=== PATIENT | male | born 1945 | race Caucasian/White ===

== ENCOUNTER 2020-11-24 06:46 | Outpatient (REF) | payer MEDICARE, SELFPAY ==
[2020-11-24 12:06] LABS: Alanine Aminotransferase 18 U/L (0-40); Albumin Level 4.2 g/dL (3.5-5.0); Alkaline Phosphatase 76 U/L (39-117); Anion Gap 14 (12-20); Aspartate Amino Transferase 20 U/L (5-37); Bilirubin Total 2.3 mg/dL (0.0-1.0); Blood Urea Nitrogen 20 mg/dL (9-16); Carbon Dioxide 26 mmol/L (22-29); Chloride 103 mmol/L (96-108); Cholesterol 160 mg/dL; Estimated Glomerular Filt Rate > 60; Glucose Fasting 143 mg/dL (60-99); HDL Cholesterol 52 mg/dL; LDL Cholesterol Calculated 86 mg/dl; Sodium 139 mmol/L (135-145); Total Protein 7.3 g/dL (6.5-8.0); Triglycerides 111 mg/dL
[2020-11-24 12:34] LABS: Creatinine Urine 64.93 mg/dL; Microalbum/Creatinine Ratio Ur 21.5 ug/mg cr
== END 2020-11-24 06:47 | disposition home or self-care (01) ==
LOC: HO.HMGCLDS 06:46
PROVIDERS: PCP Nurse Practitioner Family; Visit Provider Nurse Practitioner Family
DX: E11.9 Type 2 diabetes mellitus without complications (principal)
CPT/HCPCS: 36415; 80053; 80061; 82043

== ENCOUNTER 2021-03-08 07:27 | Outpatient (AMB) | payer MEDICARE, SELFPAY ==
--- NOTE | 2021-03-08 07:31 | A.OFFVIS_ITS ---
Intake Vital Signs 03/08/21 07:33 Height 5 ft 6 in Weight 172 lb BMI 27.7 BP 128/80 Blood Pressure Location Lt brachial Position Sitting Pulse 73 Pulse Source Pulse Oximeter Pulse Oximetry (%) 96 Oxygen Delivery Method Room Air Intake Visit Reasons: Patient is here today for follow up on DM Allergies Iodinated Contrast Media [IV DYE, IODINE CONTAINING CONTRAST ] Allergy (Mild, Verified 03/08/21 07:40) HIVES HPI Patient is here today for follow up on DM HPI Details Pt is a diabetic, on an CRAIG and a statin. Last A1c was 6.3, microalbumin up to date. Denies polyuria, polydipsia, and neuropathy. Pt denies any signs and symptoms of hypoglycemia and does know how to correct it. Pt c/o pain and numbness in righthand which has been diagnosed as both arthritis and carpal tunnel. Will order EMG and nerve conduction testing. Pt reports that he has an eye exam later today. FORMERLY [facility], [facility] Medical History (Updated 03/08/21 @ 07:45 by JUHI Zepeda) Actinic keratosis Arthritis Diabetes Diverticulitis Dyslipidemia Enlarged prostate Riley disease Glaucoma HTN (hypertension) Internal hemorrhoids Tubular adenoma Surgical History History of cataract surgery History of colonoscopy History of cystoscopy History of removal of neck cyst History of umbilical hernia repair Family History Father Lung cancer Smoker Mother History of CVA (cerebrovascular accident) Dementia Stroke Son No problems noted. Daughter No problems noted. Social History Alcohol intake: current Alcohol intake frequency: a few times a week Patient Tobacco Use Status: Former Tobacco user Review of Systems Const Reports as per HPI Physical Exam Vital Signs: Last Vital Signs Pulse 73 03/08/21 07:33 BP 128/80 03/08/21 07:33 Pulse Ox 96 03/08/21 07:33 Oxygen Delivery Method Room Air 03/08/21 07:33 Body Mass Index 27.7 Const General: cooperative Orientation/consciousness: patient oriented x3 Resp Effort & Inspection: normal respiratory effort Auscultation: clear to auscultation bilaterally Cardio Rate: regular rate Rhythm: regular rhythm Heart sounds: S1 normal heart sound present and S2 normal heart sound present Neuro General: patient oriented x3 Extrem Other: bilat feet: + sensation with use of monofilament , feet intact without open lesions/ulcerations Psych Appearance: grossly normal Mental Status: mental status grossly normal Speech and movement: Normal speech and movement present Affect: normal affect Attitude: cooperative Thought process: Normal thought process present Thought content: Normal thought content present Insight: Good insight present (Psych) Judgement: Good judgement present (Psych) Assessment & Plan Assessment & Plan (1) Diabetes: Code(s): E11.9 - Type 2 diabetes mellitus without complications Plan - Yuni Reyes: The patient agreed to the use of a medical information officer for this encounter. Scribed for JUHI Kimbrough by Yuni Reyes medical information officer, on 03/08/2021 at 7:45 AM. Orders: Orders: Comprehensive [place]. Panel Fast Today Lipid Panel Today TSH reflex Free T4 Today (2) Numbness and tingling in right hand: Code(s): R20.0 - Anesthesia of skin; R20.2 - Paresthesia of skin Orders: Orders: NE electromyogram (EMG) Today NE nerve conduction velocity Today Coding Level of Care Code Est Pt Level 3 (98465) Diagnoses Diabetes E11.9 Numbness and tingling in right hand R20.0; R20.2
[2021-03-08 07:33] VITALS: BP 128/80; PULSE 73; O2SAT 96; BMI 27.7
== END 2021-03-08 08:49 ==
LOC: HO.HMGC 07:27
PROVIDERS: PCP Nurse Practitioner Family; Visit Provider Nurse Practitioner Family
DX: Z13.9 Encounter for screening, unspecified (principal)
CPT/HCPCS: 83036; 99213

== ENCOUNTER 2021-05-05 07:45 | Outpatient (REF) | payer MEDICARE, SELFPAY ==
--- NOTE | 2021-05-05 07:48 | EMG_ITS ---
Right median and ulnar motor and sensory studies were performed. Right radial sensory study was performed and paraspinal muscles were tested. IMPRESSION: 1. Moderately severe right median neuropathy across carpal tunnel. 2. Mild right ulnar neuropathy across elbow. MD ORLANDO Chandra/JURGEN / [id number]
== END 2021-05-05 07:46 | disposition home or self-care (01) ==
LOC: HO.NEURO 07:45
PROVIDERS: PCP Nurse Practitioner Family; Visit Provider Nurse Practitioner Family
DX: R20.0 Anesthesia of skin (principal); R20.2 Paresthesia of skin
CPT/HCPCS: 95886; 95909

== ENCOUNTER → 2021-06-20 08:51 | Outpatient (BNVA) | payer MEDICARE, SELFPAY | PROVIDERS: Visit Provider Physician Assistant | DX: G56.01 Carpal tunnel syndrome, right upper limb (principal); G56.21 Lesion of ulnar nerve, right upper limb | CPT/HCPCS: 99202 ==

== ENCOUNTER → 2021-07-25 14:14 | Outpatient (BNVA) | payer MEDICARE, SELFPAY | PROVIDERS: PCP Nurse Practitioner Family; Visit Provider Orthopaedic Surgery | DX: S61.211A Laceration without foreign body of left index finger without damage to nail, initial encounter (principal); G56.01 Carpal tunnel syndrome, right upper limb; G56.21 Lesion of ulnar nerve, right upper limb | CPT/HCPCS: 99202 ==

== ENCOUNTER 2021-08-04 09:24 | Day surgery (SDC) | payer MEDICARE, SELFPAY ==
[2021-08-04 09:48] VITALS: BP 171/89; PULSE 76; RESP 16; TEMP 36.4; O2SAT 98; BMI 27.4
--- NOTE | 2021-08-04 12:48 | MHC.SHP ---
Pre-Procedural Eval Section A Date of Service: 08/04/21 The patient is an INPATIENT: No Changes since office visit: No Cold of Flu in the past 2 weeks, No New Medical Problems, No Changes in Medication and No Patient answered all questions The History & Physical has been completed within 30 days and I have reviewed it.: Yes Section B Chief Complaint: carpal tunnel syndrome Allergies: Allergies Allergy/AdvReac Type Severity Reaction Status Date / Time Iodinated Contrast Media Allergy Mild HIVES Verified 08/04/21 09:45 [IV DYE, IODINE CONTAINING CONTRAST ] Plan I have reviewed the history and physical and performed a pertinent physical examination on my patient. No changes have occurred unless specified.
--- NOTE | 2021-08-04 12:48 | W.PM.OPN ---
Operative Note Operative Note Date of Service: 08/04/21 Narrative: Preop diagnosis: 1. Right Carpal tunnel syndrome Postop diagnosis: same Procedure: 1. Right Carpal tunnel release Surgeon: Irais Bowman MD Anesthesia: local block using 1% lidocaine with epinephrine Findings: Thickened transverse carpal ligament. EBL: Less than 5 mL Specimens: None Complications: None Disposition: Brought to recovery room in stable condition Plan: Follow-up for 7-10 days for wound check and suture removal Indications: The patient is 76 years old, with right carpal tunnel syndrome that has been unresponsive to nonoperative management. The risks and benefits of operative treatment including but not limited to risk of damage to blood vessels, nerves, tendons, infection, persistent pain, persistent symptoms, or possible need for additional surgery were discussed with the patient and the patient wishes to proceed with surgery. Procedure: Once consent was obtained a local block was performed using a combination of 1% lidocaine with epinephrine. The patient was then brought back to the operating suite and placed on the operative table in supine position. A tourniquet was applied to the proximal aspect of the right upper extremity and the limb was prepped and draped in a standard surgical fashion. Once assured that we had a good block, a 1.5 cm longitudinal incision was made centered over the carpal tunnel. The incision was made through the skin to the subcutaneous tissues using a #15 blade. Dissection was made down to the level of the transverse carpal ligament with care being taken to protect the palmar cutaneous nerve. Once the transverse carpal ligament was clearly visualized, a longitudinal incision was made in the transverse carpal ligament 1st using a #15 blade, then using tenotomy scissors under direct visualization. Care was taken to look for and protect the motor branch of the median nerve when seen in this area. Once satisfied with our carpal tunnel release the wound was copiously irrigated with normal saline and hemostasis was obtained with a brief period of local pressure. The skin edges were reapproximated with some 5.0 nylon suture material and a sterile dressing was applied. The patient appears to have tolerated the procedure well and with no complications. All digits were well vascularized at the conclusion of the case.
[2021-08-04 13:21] VITALS: BP 170/80; PULSE 77; RESP 18; TEMP 36.8; O2SAT 98
== END 2021-08-04 13:28 | disposition home or self-care (01) ==
PROVIDERS: PCP Nurse Practitioner Family; Visit Provider Orthopaedic Surgery
PROC: (CPT 64721; principal; 2021-08-04 10:10)
DX: G56.01 Carpal tunnel syndrome, right upper limb (principal); G56.21 Lesion of ulnar nerve, right upper limb; M19.041 Primary osteoarthritis, right hand; I10 Essential (primary) hypertension; E80.4 Gilbert syndrome; E11.9 Type 2 diabetes mellitus without complications; Z79.84 Long term (current) use of oral hypoglycemic drugs; Z91.041 Radiographic dye allergy status; Z87.891 Personal history of nicotine dependence
CPT/HCPCS: 64721

== ENCOUNTER → 2021-08-17 13:20 | Outpatient (BNVA) | payer MEDICARE, SELFPAY | PROVIDERS: PCP Nurse Practitioner Family; Visit Provider Orthopaedic Surgery | DX: G56.21 Lesion of ulnar nerve, right upper limb (principal); G56.03 Carpal tunnel syndrome, bilateral upper limbs; S61.211D Laceration without foreign body of left index finger without damage to nail, subsequent encounter | CPT/HCPCS: 99212 ==

== ENCOUNTER 2021-09-06 13:43 | Outpatient (REF) | payer MEDICARE, SELFPAY | END 2021-09-06 13:44 | disposition home or self-care (01) | LOC: HO.HMGCLDS 13:43 | PROVIDERS: PCP Nurse Practitioner Family; Visit Provider Internal Medicine | DX: Z20.822 Contact with and (suspected) exposure to COVID-19 (principal) | CPT/HCPCS: C9803; U0003; U0005 ==

== ENCOUNTER 2021-09-12 08:48 | Day surgery (SDC) | payer MEDICARE, SELFPAY ==
[2021-09-12 09:05] VITALS: BMI 27.4
[2021-09-12 09:11] VITALS: BP 159/60; PULSE 77; RESP 16; TEMP 36.3; O2SAT 99
[2021-09-12 10:59] VITALS: BP 157/75; PULSE 71; RESP 16; TEMP 36.7; O2SAT 96
--- NOTE | 2021-09-12 11:05 | MHC.SHP ---
Pre-Procedural Eval Section A Date of Service: 09/12/21 The patient is an INPATIENT: No Changes since office visit: No Cold of Flu in the past 2 weeks, No New Medical Problems, No Changes in Medication and No Patient answered all questions The History & Physical has been completed within 30 days and I have reviewed it.: Yes Section B Chief Complaint: carpal tunnel release Allergies: Allergies Allergy/AdvReac Type Severity Reaction Status Date / Time Iodinated Contrast Media Allergy Mild HIVES Verified 08/04/21 09:45 [IV DYE, IODINE CONTAINING CONTRAST ] Plan I have reviewed the history and physical and performed a pertinent physical examination on my patient. No changes have occurred unless specified.
--- NOTE | 2021-09-12 11:05 | W.PM.OPN ---
Operative Note Operative Note Date of Service: 09/12/21 Narrative: Preop diagnosis: 1. left Carpal tunnel syndrome Postop diagnosis: same Procedure: 1. left Carpal tunnel release Surgeon: Irais Bowman MD Anesthesia: local block using 1% lidocaine with epinephrine Findings: Thickened transverse carpal ligament in the palm. EBL: Less than 5 mL Specimens: None Complications: None Disposition: Brought to recovery room in stable condition Plan: Follow-up for 7-10 days for wound check and suture removal Indications: The patient is 76 years old, with left carpal tunnel syndrome that has been unresponsive to nonoperative management. The risks and benefits of operative treatment including but not limited to risk of damage to blood vessels, nerves, tendons, infection, persistent pain, persistent symptoms, or possible need for additional surgery were discussed with the patient and the patient wishes to proceed with surgery. Procedure: Once consent was obtained a local block was performed using a combination of 1% lidocaine with epinephrine. The patient was then brought back to the operating suite and placed on the operative table in supine position. A tourniquet was applied to the proximal aspect of the left upper extremity and the limb was prepped and draped in a standard surgical fashion. Once assured that we had a good block, a 1.5 cm longitudinal incision was made centered over the carpal tunnel. The incision was made through the skin to the subcutaneous tissues using a #15 blade. Dissection was made down to the level of the transverse carpal ligament with care being taken to protect the palmar cutaneous nerve. Once the transverse carpal ligament was clearly visualized, a longitudinal incision was made in the transverse carpal ligament 1st using a #15 blade, then using tenotomy scissors under direct visualization. Care was taken to look for and protect the motor branch of the median nerve when seen in this area. Once satisfied with our carpal tunnel release the wound was copiously irrigated with normal saline and hemostasis was obtained with a brief period of local pressure. The skin edges were reapproximated with some 5.0 nylon suture material and a sterile dressing was applied. The patient appears to have tolerated the procedure well and with no complications. All digits were well vascularized at the conclusion of the case.
== END 2021-09-12 11:15 | disposition home or self-care (01) ==
PROVIDERS: PCP Nurse Practitioner Family; Visit Provider Orthopaedic Surgery
PROC: (CPT 64721; principal; 2021-09-12 10:10)
DX: G56.02 Carpal tunnel syndrome, left upper limb (principal); I10 Essential (primary) hypertension; E78.5 Hyperlipidemia, unspecified; E80.4 Gilbert syndrome; E11.9 Type 2 diabetes mellitus without complications; Z91.041 Radiographic dye allergy status; Z87.891 Personal history of nicotine dependence
CPT/HCPCS: 64721

== ENCOUNTER → 2021-09-27 12:50 | Outpatient (BNVA) | payer MEDICARE, SELFPAY | PROVIDERS: PCP Nurse Practitioner Family; Visit Provider Physician Assistant | DX: G56.02 Carpal tunnel syndrome, left upper limb (principal) | CPT/HCPCS: 99212 ==

== ENCOUNTER 2021-10-03 07:04 | Outpatient (REF) | payer MEDICARE, SELFPAY ==
[2021-10-03 11:24] LABS: Appearance Urine CLEAR; Color Urine YELLOW; Glucose Urine UA NEG (NEG); Leukocyte Esterase Urine NEG (NEG); Nitrite Urine NEG (NEG); Urine Blood NEG (NEG); Urine Ketones NEG (NEG); Urine Protein NEG (NEG-TRACE)
[2021-10-03 11:37] LABS: Estimated Average Glucose 140 mg/dL; Hemoglobin A1c % 6.5 %
[2021-10-03 11:48] LABS: Alanine Aminotransferase 21 U/L (0-40); Albumin Level 4.1 g/dL (3.5-5.0); Alkaline Phosphatase 78 U/L (39-117); Anion Gap 9 (12-20); Aspartate Amino Transferase 17 U/L (5-37); Blood Urea Nitrogen 16 mg/dL (9-16); Calcium 9.6 mg/dL (8.4-10.2); Carbon Dioxide 27 mmol/L (22-29); Chloride 105 mmol/L (96-108); Cholesterol 169 mg/dL; Estimated Glomerular Filt Rate > 60; Glucose Fasting 155 mg/dL (60-99); HDL Cholesterol 52 mg/dL; LDL Cholesterol Calculated 94 mg/dl; Potassium 4.3 mmol/L (3.3-5.1); Sodium 137 mmol/L (135-145); Total Protein 7.3 g/dL (6.5-8.0); Triglycerides 119 mg/dL
[2021-10-03 11:57] LABS: Prostate Specific Antigen Scr 3.59 ng/mL (<0.05-4.0); TSH reflex Free T4 3.12 uIU/mL (0.32-4.0)
== END 2021-10-03 07:05 | disposition home or self-care (01) ==
LOC: HO.HMGCLDS 07:04
PROVIDERS: PCP Nurse Practitioner Family; Visit Provider Nurse Practitioner Family
DX: Z12.5 Encounter for screening for malignant neoplasm of prostate (principal); E11.9 Type 2 diabetes mellitus without complications
CPT/HCPCS: 36415; 80053; 80061; 81003; 83036; 84153; 84443

== ENCOUNTER 2022-02-07 07:05 | Outpatient (REF) | payer MEDICARE, SELFPAY ==
[2022-02-07 12:02] LABS: Alanine Aminotransferase 17 U/L (0-40); Albumin Level 4.2 g/dL (3.5-5.0); Alkaline Phosphatase 74 U/L (39-117); Anion Gap 12 (12-20); Aspartate Amino Transferase 19 U/L (5-37); Bilirubin Total 2.7 mg/dL (0.0-1.0); Blood Urea Nitrogen 26 mg/dL (9-16); Calcium 9.8 mg/dL (8.4-10.2); Carbon Dioxide 27 mmol/L (22-29); Chloride 105 mmol/L (96-108); Cholesterol 152 mg/dL; Estimated Glomerular Filt Rate > 60; Glucose Fasting 175 mg/dL (60-99); HDL Cholesterol 50 mg/dL; LDL Cholesterol Calculated 80 mg/dl; Potassium 4.9 mmol/L (3.3-5.1); Sodium 139 mmol/L (135-145); Total Protein 7.6 g/dL (6.5-8.0); Triglycerides 110 mg/dL
[2022-02-07 12:04] LABS: Creatinine Urine 72.09 mg/dL
[2022-02-07 12:06] LABS: Estimated Average Glucose 146 mg/dL; Hemoglobin A1c % 6.7 %
== END 2022-02-07 07:06 | disposition home or self-care (01) ==
LOC: HO.HMGCLDS 07:05
PROVIDERS: Visit Provider Nurse Practitioner Family
DX: E11.9 Type 2 diabetes mellitus without complications (principal)
CPT/HCPCS: 36415; 80053; 80061; 82043; 83036

== ENCOUNTER 2022-04-17 15:52 | Outpatient (REF) | payer MEDICARE, SELFPAY ==
--- NOTE | ~2022-04-17 | XR_ITS ---
EXAMINATION: XR HIP, LEFT WITH PELVIS CLINICAL INFORMATION: Left hip pain. COMPARISON: 07/20/2011 and 05/07/2015. TECHNIQUE: AP film of the pelvis and 2 views of the left hip. FINDINGS: AP film of the pelvis does not demonstrate any evidence of acute fracture or diastasis. Sacroiliac joints appear unremarkable. There is some spurring seen about both greater trochanters. There is severe degenerative disc disease present L4 through S1 on the right with loss of disc spaces and marginal spurring and facet arthropathy. There are prominent vascular calcifications seen. There is mild spurring about the right hip joint. 2 views of the left hip do not demonstrate any evidence of acute fracture or dislocation. The hip joint space is maintained. There is some mild marginal spurring present. There is calcification of the greater trochanter consistent with calcific tendinitis.. XR/XR hip LT w PEL1V IMPRESSION: No evidence of acute fracture or diastases of the pelvis. No evidence of acute fracture or dislocation of the left hip. Left hip calcific tendinitis greater trochanter. Significant degenerative disc disease lower lumbar spine.
== END 2022-04-17 15:53 | disposition home or self-care (01) ==
LOC: HO.HMGCX 15:52
PROVIDERS: PCP Nurse Practitioner Family; Visit Provider Internal Medicine
DX: S76.012A Strain of muscle, fascia and tendon of left hip, initial encounter (principal)
CPT/HCPCS: 73502

== ENCOUNTER 2022-07-01 07:54 | Outpatient (REF) | payer MEDICARE, SELFPAY ==
[2022-07-01 11:51] LABS: MANUAL DIFF FLAG NO
[2022-07-01 11:54] LABS: Basophils Percent Auto 0.5 % (0-2); Eosinophils Absolute Auto 0.1 X10*3/uL (0.0-0.4); Eosinophils Percent Auto 2.4 % (0-4); Hematocrit 39.9 % (42.0-52.0); Hemoglobin 13.7 g/dl (14.0-18.0); Imm Gran Abs Auto 0.03 X10*3/uL (0.00-0.03); Imm Gran Pct Auto 0.5 % (0.0-0.4); Lymphocytes Absolute Auto 1.4 X10*3/uL (1.2-4.9); Lymphocytes Percent Auto 24.3 % (20-40); Mean Corpuscular HGB Conc 34.3 g/dl (31.0-36.0); Mean Corpuscular Hemoglobin 31.7 pg (27.0-33.0); Mean Corpuscular Volume 92.4 fL (80.0-98.0); Mean Platelet Volume 9.5 fL (9.4-12.4); Monocytes Absolute Auto 0.5 X10*3/uL (0.1-1.2); Monocytes Percent Auto 8.9 % (2-11); Neutrophils Absolute Auto 3.7 x10*3/uL (2.0-8.3); Neutrophils Percent Auto 63.4 % (45-73); Platelet Count 231 X10*3/uL (160-400); Red Blood Count 4.32 X10*6/uL (4.60-5.80); Red Cell Distribution Width 12.6 % (11.0-16.0); White Blood Count 5.9 X10*3/uL (4.8-10.8)
[2022-07-01 11:55] LABS: Appearance Urine Clear; Color Urine Yellow; Glucose Urine UA Negative (Negative); Leukocyte Esterase Urine Negative (Negative); Nitrite Urine Negative (Negative); PH 5.5 (5.0-9.0); Specific Gravity - Urine 1.015 (1.005-1.025); Urine Blood Negative (Negative); Urine Ketones Negative (Negative); Urine Protein Negative (Neg-Trace)
[2022-07-01 12:01] LABS: Estimated Average Glucose 137 mg/dL; Hemoglobin A1c % 6.4 %
[2022-07-01 12:08] LABS: Alanine Aminotransferase 21 U/L (0-40); Albumin Level 4.3 g/dL (3.5-5.0); Alkaline Phosphatase 104 U/L (39-117); Anion Gap 17 (12-20); Aspartate Amino Transferase 22 U/L (5-37); Bilirubin Total 2.7 mg/dL (0.0-1.0); Blood Urea Nitrogen 25 mg/dL (9-16); Calcium 9.6 mg/dL (8.4-10.2); Carbon Dioxide 23 mmol/L (22-29); Chloride 104 mmol/L (96-108); Cholesterol 150 mg/dL; Estimated Glomerular Filt Rate 59; Glucose Fasting 157 mg/dL (60-99); HDL Cholesterol 46 mg/dL; LDL Cholesterol Calculated 87 mg/dl; Potassium 4.3 mmol/L (3.3-5.1); Sodium 140 mmol/L (135-145); Total Protein 7.5 g/dL (6.5-8.0); Triglycerides 85 mg/dL
[2022-07-01 12:32] LABS: Prostate Specific Antigen Scr 2.09 ng/mL (<0.05-4.0); TSH reflex Free T4 2.44 uIU/mL (0.32-4.0)
== END 2022-07-01 07:55 | disposition home or self-care (01) ==
LOC: HO.HMGCLDS 07:54
PROVIDERS: PCP Nurse Practitioner Family; Visit Provider Nurse Practitioner Family
DX: E11.9 Type 2 diabetes mellitus without complications (principal); Z12.5 Encounter for screening for malignant neoplasm of prostate
CPT/HCPCS: 36415; 80053; 80061; 81003; 83036; 84153; 84443; 85025

== ENCOUNTER 2022-12-06 12:17 | Outpatient (REF) | payer MEDICARE, SELFPAY ==
[2022-12-06 13:41] LABS: MANUAL DIFF FLAG NO
[2022-12-06 13:49] LABS: Basophils Percent Auto 0.4 % (0-2); Eosinophils Absolute Auto 0.2 X10*3/uL (0.0-0.4); Eosinophils Percent Auto 2.1 % (0-4); Hematocrit 40.4 % (42.0-52.0); Hemoglobin 13.5 g/dl (14.0-18.0); Imm Gran Abs Auto 0.05 X10*3/uL (0.00-0.03); Imm Gran Pct Auto 0.6 % (0.0-0.4); Lymphocytes Absolute Auto 1.7 X10*3/uL (1.2-4.9); Lymphocytes Percent Auto 20.3 % (20-40); Mean Corpuscular HGB Conc 33.4 g/dl (31.0-36.0); Mean Corpuscular Hemoglobin 30.9 pg (27.0-33.0); Mean Corpuscular Volume 92.4 fL (80.0-98.0); Mean Platelet Volume 9.4 fL (9.4-12.4); Monocytes Absolute Auto 0.7 X10*3/uL (0.1-1.2); Monocytes Percent Auto 8.5 % (2-11); Neutrophils Absolute Auto 5.6 x10*3/uL (2.0-8.3); Neutrophils Percent Auto 68.1 % (45-73); Platelet Count 243 X10*3/uL (160-400); Red Blood Count 4.37 X10*6/uL (4.60-5.80); Red Cell Distribution Width 12.7 % (11.0-16.0); White Blood Count 8.2 X10*3/uL (4.8-10.8)
[2022-12-06 14:17] LABS: Alanine Aminotransferase 16 U/L (0-40); Albumin Level 4.2 g/dL (3.5-5.0); Alkaline Phosphatase 99 U/L (39-117); Anion Gap 11 (12-20); Aspartate Amino Transferase 19 U/L (5-37); Bilirubin Total 1.9 mg/dL (0.0-1.0); Blood Urea Nitrogen 31 mg/dL (9-16); Calcium 9.4 mg/dL (8.4-10.2); Carbon Dioxide 27 mmol/L (22-29); Chloride 105 mmol/L (96-108); Estimated Glomerular Filt Rate 58; Glucose Random 140 mg/dL (60-115); Potassium 4.4 mmol/L (3.3-5.1); Sodium 139 mmol/L (135-145); Total Protein 7.4 g/dL (6.5-8.0)
== END 2022-12-06 12:18 | disposition home or self-care (01) ==
LOC: HO.HMGCLDS 12:17
PROVIDERS: PCP Nurse Practitioner Family; Visit Provider Nurse Practitioner Family
DX: Z01.818 Encounter for other preprocedural examination (principal)
CPT/HCPCS: 36415; 80053; 85025

== ENCOUNTER 2022-12-25 08:21 | Day surgery (SDC) | payer MEDICARE, SELFPAY ==
[2022-12-25 07:07] VITALS: BMI 27.6
[2022-12-25 08:56] LABS: Glucose, Whole Blood 145 mg/dL (60-115)
[2022-12-25 09:04] VITALS: BP 164/80; PULSE 72; RESP 19; TEMP 36.6; O2SAT 99
[2022-12-25] MEDS: Lactated Ringers 1,000 ML 50 ML IVCONT (09:12)
--- NOTE | 2022-12-25 09:13 | P.CONAN_ITS ---
HPI - Anesthesia Eval Consult details Narrative: 77 yr old with htn and CKD for colon screen [facility] Active Problems Active Problems: All Active Problems (Updated 12/06/22 @ 11:49 by JUHI Zepeda) Pre-op evaluation (Acute) Screening for colon cancer (Acute) Sprain of left hip (Acute) HTN (hypertension) (Acute) Carpal tunnel syndrome of left wrist (Acute) Laceration of left index finger (Acute) Cubital tunnel syndrome on right (Acute) Carpal tunnel syndrome of right wrist (Acute) Actinic keratosis (Acute) Cubital tunnel syndrome (Acute) Carpal tunnel syndrome (Acute) Numbness and tingling in right hand (Acute) Screening PSA (prostate specific antigen) (Acute) Diabetes (Acute) Past Medical History Medical History (Updated 12/06/22 @ 11:49 by JUHI Zepeda) Actinic keratosis Arthritis CKD (chronic kidney disease) stage 3, GFR 30-59 ml/min Diabetes Diverticulitis Dyslipidemia Enlarged prostate [place]en disease Glaucoma HTN (hypertension) Internal hemorrhoids Tinea unguium Tubular adenoma Family History Family History Father Lung cancer Smoker Mother History of CVA (cerebrovascular accident) Dementia Stroke Son No problems noted. Daughter No problems noted. Family history of problems with anesthesia: No Surgical History Surgical History History of cataract surgery History of colonoscopy History of cystoscopy History of removal of neck cyst History of umbilical hernia repair History of Problems with Anesthesia: No Social History Social History Housing: House Alcohol intake: current Alcohol intake frequency: holidays/special occasions only Patient Tobacco Use Status: Former Tobacco user Quit Date: 30 yrs ago e-Cigarette/Vaping Use: Never Used Second Hand Smoke Exposure: No Are you DNR?: No Advance Directives: No Advance Directives Information Provided: Yes Current occupational status: employed 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 Cognitive needs: No Hearing needs: No Vision needs: No Meds Allergies Allergy/AdvReac Type Severity Reaction Status Date / Time Iodinated Contrast Media Allergy Mild HIVES Verified 12/06/22 11:37 [IV DYE, IODINE CONTAINING CONTRAST ] Active Medications: Current Medications Lactated Ringer's (Lr) 1,000 mls @ 50 mls/hr IVCONT .Q20H BARBIE Last Admin: 12/25/22 09:12 Dose: 50 mls/hr Sodium Biphosphate/Sodium Phosphate (Sodium Phosphate,Burleigh-Dibasic 133 Ml Enema) 133 ml AR ONCE PRN PRN Reason: Poor Colonoscopy Prep Results Home Medications Medication Instructions Recorded Confirmed Last Taken Type aspirin 81 mg tablet,delayed 81 mg PO DAILY 08/24/20 06/21/22 12/18/22 History release brimonidine 0.15 % eye drops drp ophthalmic (eye) 08/24/20 06/21/22 08/04/21 07:00 History latanoprost 0.005 % eye drops 1 drp ophthalmic (eye) BEDTIME 08/24/20 06/21/22 Unknown History timolol maleate 0.5 % eye drops 1 drp ophthalmic (eye) BID 08/24/20 06/21/22 08/04/21 07:00 History Exam Exam Date and Time: December 25, 2022 0913 Height,Weight and Vital Signs: Height 5 ft 5 in Weight 75.296 kg Last Vital Signs Temp 98 F 12/25/22 09:04 Pulse 72 12/25/22 09:04 Resp 19 12/25/22 09:04 BP 164/80 H 12/25/22 09:04 Pulse Ox 99 12/25/22 09:04 O2 Del Method Room Air 12/25/22 09:04 Pertinent Lab Results Pertinent Lab Results: Laboratory Tests 12/25/22 08:53 POC Glucose 145 H Airway Mallampati Class: II TM Dist: >3cm Neck ROM: Full Heart: rrr Lungs: cta Assessment and Plan Assessment Anesthesia Assessment: Anesthesia Plan Discussed and Chart Reviewed Final Anesthetic Review Family History of Problems with Anesthesia: No History of Problems with Anesthesia: No NPO: Yes ASA Class: III Final Preanesthetic Review: No Changes in Pt Med Stat, Meds/Allgs Chart Reviewed, Consent Obtained/Reviewed and Anes Risks/Benef Reviewed Patient Risk: Low Procedure Risk: Low Anesthetic Plan Anesthetic Plan: MAC: Disposition: Standard PACU
[2022-12-25 10:45] VITALS: BP 100/49; PULSE 68; RESP 17; TEMP 36.6; O2SAT 96
--- NOTE | 2022-12-25 10:47 | PM.OP ---
Brief Operative Note Date of Service: 12/25/22 Pre-op diagnosis: Screening Post-op diagnosis: other (Polyps) Procedure: Colonoscopy to the cecum with hot snare polypectomy x 2 Surgeon: Romulo Barillas Anesthesia: MAC Was an Education Reviewer used for this Procedure?: No Estimated blood loss (mL): 0 Pathology: other (A. Proximal ascending colon B. Polyp in area of Hepatic Flexure) Condition: stable Disposition: PACU
[2022-12-25 11:00] VITALS: BP 138/64; PULSE 62; RESP 16; TEMP 36.8; O2SAT 98
--- NOTE | 2022-12-25 11:44 | OP_ITS ---
DATE OF SERVICE: 12/25/2022 SURGEON: Romulo Barillas MD PREOPERATIVE DIAGNOSIS: POSTOPERATIVE DIAGNOSIS: PROCEDURE PERFORMED: Colonoscopy to the cecum with hot snare polypectomy x 2. ESTIMATED BLOOD LOSS: COMPLICATIONS: ANESTHESIA: Monitored anesthesia care. ASSISTANTS: SPECIMENS: PREOPERATIVE DIAGNOSES: Colorectal cancer screening and personal history of tubular adenomas of the colon. POSTOPERATIVE DIAGNOSES: Colorectal cancer screening and personal history of tubular adenomas of the colon, colon polyps, diverticulosis and internal hemorrhoids. INDICATION: The patient presents for evaluation of colorectal cancer screening, and personal history of tubular adenomas of the colon. Full consent has been obtained from him for the procedure, including risks of bleeding and perforation. DESCRIPTION OF PROCEDURE: The patient was placed in the left lateral decubitus position. The digital rectal exam revealed no abnormalities. The Olympus video pediatric colonoscope was entered into the rectum and advanced to the cecum with assistance of abdominal wall pressure. Once in the cecum, I did identify cecal pouch with appendiceal orifice and normal-appearing ileocecal valve. The entire cecum appeared normal. There was a diverticulum in the cecum. Scope was then slowly withdrawn assessing all mucosal surfaces carefully. Preparation was excellent. In the very proximal ascending colon, opposite to the ileocecal valve, was an approximately 8 mm polyp which was removed by hot snare polypectomy and recovered by suction. The polypectomy site appeared clean, without any sign of residual polyp nor bleeding. In the region of the hepatic flexure, there was an approximately 6 mm polyp which was removed by hot snare polypectomy and recovered by suction. The polypectomy site appeared clean, without any sign of residual polyp nor bleeding. I did not visualize any other polyps, colitis, nor angiodysplasia. There was an occasional diverticulum noted in the ascending colon and mild diverticulosis in the sigmoid colon. In the rectum, the scope was retroflexed visualizing internal hemorrhoids, but no other pathology. The rectal mucosa appeared normal. Scope was straightened and withdrawn from the patient. He tolerated the procedure well and was returned to the recovery area in stable condition. IMPRESSION: 1. Colon polyps. 2. Diverticulosis. 3. Internal hemorrhoids. PLAN: The results of the pathology will be checked. Given his age and these relatively minimal findings, I do not think he will need any further screening colonoscopies in the future as he would be in his 80s when the next colonoscopy would theoretically be due. As such, he will see me on a p.r.n. basis. He was advised not to use any aspirin or NSAIDs for 1 week. MD JANE Marks/JURGEN / [id number] MTDD
== END 2022-12-25 11:41 | disposition home or self-care (01) ==
PROVIDERS: PCP Nurse Practitioner Family; Visit Provider Internal Medicine
PROC: 0DJD8ZZ Inspection of Lower Intestinal Tract, Via Natural or Artificial Opening Endoscopic (ICD-10-PCS; CPT 45378; principal; 2022-12-25 09:40)
DX: Z12.11 Encounter for screening for malignant neoplasm of colon (principal); Z86.010 Personal history of colon polyps; D12.2 Benign neoplasm of ascending colon; D12.3 Benign neoplasm of transverse colon; K57.30 Diverticulosis of large intestine without perforation or abscess without bleeding; K64.8 Other hemorrhoids; I10 Essential (primary) hypertension; K76.0 Fatty (change of) liver, not elsewhere classified; E80.4 Gilbert syndrome; E78.5 Hyperlipidemia, unspecified; G47.33 Obstructive sleep apnea (adult) (pediatric); E11.9 Type 2 diabetes mellitus without complications; Z79.84 Long term (current) use of oral hypoglycemic drugs; Z79.899 Other long term (current) drug therapy; Z79.1 Long term (current) use of non-steroidal anti-inflammatories (NSAID); Z91.041 Radiographic dye allergy status; Z87.891 Personal history of nicotine dependence
CPT/HCPCS: 45385; 82947; 88305

== ENCOUNTER 2022-12-27 15:52 | Emergency (ER) | payer OTHER, MEDICARE, SELFPAY ==
--- NOTE | ~2022-12-27 | XR_ITS ---
EXAMINATION: XR FINGER, LEFT CLINICAL INFORMATION: Index finger injury. COMPARISON: Radiograph of the left hand 03/29/2017. TECHNIQUE: Three views of the left index finger. FINDINGS: Redemonstration of small radiopaque bodies along the soft tissues of the fifth digit, stable compared to 03/29/2017. New scattered radiopaque densities in the soft tissues of the first through fourth digits, could represent foreign bodies. Soft tissue thickening with a laceration in the distal aspect of the second digit. No acute fractures or malalignment. Severe joint space narrowing and subcortical sclerosis of the first carpometacarpal joint and triscaphe space. Moderate joint space narrowing with osteophytes at multiple interphalangeal joints and first metatarsophalangeal joint. No erosions. XR/XR finger LT min 2V IMPRESSION: 1. Soft tissue thickening with a laceration in the distal aspect of the second digit. 2. New radiopaque densities in the soft tissues of the first through fourth digits, possibly foreign bodies. 3. No acute fractures or malalignment. 4. 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
[2022-12-27 16:17] VITALS: BP 185/85; PULSE 87; RESP 17; TEMP 36.6; O2SAT 97; BMI 26.6
--- NOTE | 2022-12-27 16:21 | ED_ITS ---
HPI - Extremity Injury (Upper) General Chief Complaint: Wound/Laceration <RAQUEL Strauss - Last Filed: 12/27/22 16:22> Stated Complaint: lacerated finger, sent from <RAQUEL Strauss - Last Filed: 12/27/22 16:22> Time Seen by Provider: 12/27/22 17:02 <RAQUEL Strauss - Last Filed: 12/27/22 16:22> Source: patient <Stefanie Willoughby NP - Last Filed: 12/27/22 18:50> Mode of arrival: ambulatory <Stefanie Willoughby NP - Last Filed: 12/27/22 18:50> Limitations: no limitations <Stefanie Willoughby NP - Last Filed: 12/27/22 18:50> History of Present Illness HPI narrative: patient is a 77yo male right hand dominant presenting for a left index finger laceration. 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 He stated he initially went to urgent care but was sent to the ER due to the extent of the laceration. He endorsed pain at the finger only and a flap of skin hanging off . He stated he has not taken any analgesics. He did not recall whether he had an up to date tetanus vaccine. <Stefanie Willoughby NP - Last Filed: 12/27/22 18:50> MD complaint: injury to: left (index finger) <Stefanie Willoughby NP - Last Filed: 12/27/22 18:50> Onset (ago): hour(s) (7) <Stefanie Willoughby NP - Last Filed: 12/27/22 18:50> Other Extremity Injury: left: fingers (index finger) <Stefanie Willoughby NP - Last Filed: 12/27/22 18:50> Other injuries: none <Stefanie Willoughby NP - Last Filed: 12/27/22 18:50> Handedness: right <Stefanie Willoughby NP - Last Filed: 12/27/22 18:50> Place: work <Stefanie Willoughby NP - Last Filed: 12/27/22 18:50> Severity: moderate <Stefanie Willoughby NP - Last Filed: 12/27/22 18:50> Severity scale (1-10): 8 <Stefanie Willoughby NP - Last Filed: 12/27/22 18:50> Context: laceration <Stefanie Willoughby NP - Last Filed: 12/27/22 18:50> Associated symptoms: denies other symptoms <Stefanie Willoughby NP - Last Filed: 12/27/22 18:50> Related Data Home Medications: Home Medications Medication Instructions Recorded Confirmed aspirin 81 mg tablet,delayed 81 mg PO DAILY 08/24/20 12/27/22 release brimonidine 0.15 % eye drops drp ophthalmic (eye) 08/24/20 12/27/22 latanoprost 0.005 % eye drops 1 drp ophthalmic (eye) BEDTIME 08/24/20 12/27/22 timolol maleate 0.5 % eye drops 1 drp ophthalmic (eye) BID 08/24/20 12/27/22 Previous Rx's Medication Instructions Recorded simvastatin 40 mg tablet 40 mg PO BEDTIME #90 tabs 04/30/22 metformin 500 mg tablet 500 mg PO BID 90 days #180 tabs 12/09/22 sildenafil 100 mg tablet 100 mg PO DAILY PRN sexual 12/11/22 activity 10 days #10 tabs lisinopril 5 mg tablet 5 mg PO DAILY 90 days #90 tabs 12/13/22 cephalexin 500 mg capsule 500 mg PO BID #14 caps 12/27/22 <RAQUEL Strauss - Last Filed: 12/27/22 16:22> Allergies/Adverse Reactions: Allergies Allergy/AdvReac Type Severity Reaction Status Date / Time Iodinated Contrast Media Allergy Mild HIVES Verified 12/27/22 16:17 [IV DYE, IODINE CONTAINING CONTRAST ] <RAQUEL Strauss - Last Filed: 12/27/22 16:22> Review of Systems Review of Systems: Yes all other systems are reviewed and are negative <Stefanie Willoughby NP - Last Filed: 12/27/22 18:50> Constitutional: Constitutional: Reports no additional constitutional complaints, Denies body ache(s), Denies chills, Denies fever(s), Denies headache(s) and Denies weakness <Stefanie Willoughby BEVEL GEAR GENERATOR OPERATOR - Last Filed: 12/27/22 18:50> Eyes: Eyes: Reports no additional eye complaints and Denies change in vision <Stefanie Willoughby BEVEL GEAR GENERATOR OPERATOR - Last Filed: 12/27/22 18:50> ENT: Reports system reviewed and no additional complaints, except as documented, Denies dizziness, Denies headache(s), Denies nasal congestion, Denies nasal discharge and Denies neck pain <Stefanie Willoughby BEVEL GEAR GENERATOR OPERATOR - Last Filed: 12/27/22 18:50> Cardiovascular: Cardiovascular: Reports no additional cardiovascular complaints, Denies chest pain, Denies leg edema and Denies dyspnea <Stefanie Willoughby BEVEL GEAR GENERATOR OPERATOR - Last Filed: 12/27/22 18:50> Respiratory: Respiratory: Reports no additional respiratory complaints, Denies cough and Denies dyspnea <Stefanie Willoughby BEVEL GEAR GENERATOR OPERATOR - Last Filed: 12/27/22 18:50> Gastrointestinal: Gastrointestinal: Reports no additional gastrointestinal complaints, Denies abdominal pain, Denies diarrhea, Denies nausea and Denies vomiting <Stefanie Willoughby BEVEL GEAR GENERATOR OPERATOR - Last Filed: 12/27/22 18:50> Genitourinary: Genitourinary: Denies urinary incontinence <Stefanie Willoughby BEVEL GEAR GENERATOR OPERATOR - Last Filed: 12/27/22 18:50> Musculoskeletal: Musculoskeletal: Reports no additional musculoskeletal complaints, Denies back pain, Reports arthralgias, Reports joint swelling, Denies neck pain, Denies numbness and Denies tingling <Stefanie Willoughby BEVEL GEAR GENERATOR OPERATOR - Last Filed: 12/27/22 18:50> Integumentary/Breasts: Skin/Breast: Reports system reviewed and no additional complaints, except as docu and Denies rash <Stefanie Willoughby BEVEL GEAR GENERATOR OPERATOR - Last Filed : 12/27/22 18:50> Neurologic: Reports system reviewed and no additional complaints, except as documented, Denies Abnormal speech present, Denies dizziness, Denies headache(s), Denies numbness, Denies tingling and Denies weakness <Stefanie Willoughby BEVEL GEAR GENERATOR OPERATOR - Last Filed: 12/27/22 18:50> PMFSH Past Medical History Attestation statement: The following information was validated with the patient. <Stefanie Willoughby NP - Last Filed: 12/27/22 18:50> Source: old records reviewed and nursing notes reviewed <Stefanie Willoughby NP - Last Filed: 12/27/22 18:50> Medical History: Medical History Actinic keratosis Arthritis CKD (chronic kidney disease) stage 3, GFR 30-59 ml/min Diabetes Diverticulitis Dyslipidemia Enlarged prostate [place] disease Glaucoma HTN (hypertension) Internal hemorrhoids Tinea unguium Tubular adenoma <RAQUEL Strauss - Last Filed: 12/27/22 16:22> Surgical History: Surgical History History of cataract surgery History of colonoscopy History of cystoscopy History of removal of neck cyst History of umbilical hernia repair <RAQUEL Strauss - Last Filed: 12/27/22 16:22> Family History Family History: Family History Father Lung cancer Smoker Mother History of CVA (cerebrovascular accident) Dementia Stroke Son No problems noted. Daughter No problems noted. 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 Cognitive needs: No Hearing needs: No Vision needs: No <RAQUEL Strauss - Last Filed: 12/27/22 16:22> Physical Exam Vital Signs: Vital Signs: Last Vital Signs Temp 98 F 12/27/22 16:17 Pulse 87 12/27/22 16:17 Resp 17 12/27/22 16:17 BP 185/85 H 12/27/22 16:17 Pulse Ox 97 12/27/22 16:17 O2 Del Method Room Air 12/27/22 16:17 BMI result Body Mass Index 26.6 <RAQUEL Strauss - Last Filed: 12/27/22 16:22> Vital Signs: Last Vital Signs Temp 98 F 12/27/22 16:17 Pulse 87 12/27/22 16:17 Resp 17 12/27/22 16:17 BP 185/85 H 12/27/22 16:17 Pulse Ox 97 12/27/22 16:17 O2 Del Method Room Air 12/27/22 16:17 BMI result Body Mass Index 26.6 <Stefanie Willoughby NP - Last Filed: 12/27/22 18:50> Const: Other: patient awake and alert on presentation in no acute distress <Stefanie Willoughby NP - Last Filed: 12/27/22 18:50> General: cooperative <Stefanie Willoughby NP - Last Filed: 12/27/22 18:50> Orientation/consciousness: patient oriented x3 <Stefanie Willoughby NP - Last Filed: 12/27/22 18:50> Limitations: no limitations <Stefanie Willoughby NP - Last Filed: 12/27/22 18:50> HEENT: Head: Yes normal to inspection <Stefanie Willoughby NP - Last Filed: 12/27/22 18:50> Ears: hearing grossly normal bilaterally <Stefanie Willoughby NP - Last Filed: 12/27/22 18:50> General nose exam: Normal external nose present <Stefanie Willoughby NP - Last Filed: 12/27/22 18:50> Face and sinus: Yes normal facial exam <Stefanie Willoughby NP - Last Filed: 12/27/22 18:50> Mouth: Normal oral and palatal mucosa present <Stefanie Willoughby NP - Last Filed: 12/27/22 18:50> Throat: Yes posterior oropharynx normal <Stefanie Willoughby NP - Last Filed: 12/27/22 18:50> Eyes: General: appearance normal, both eyes and all related structures <Stefanie Willoughby BEVEL GEAR GENERATOR OPERATOR - Last Filed: 12/27/22 18:50> Pupils: Equal, round and reactive pupils present <Stefanie Willoughby BEVEL GEAR GENERATOR OPERATOR - Last Filed: 12/27/22 18:50> Neck: Neck: Yes normal visual inspection <Stefanie Willoughby BEVEL GEAR GENERATOR OPERATOR - Last Filed: 12/27/22 18:50> Chest: Chest palpation & inspection: normal inspection of the chest <Stefanie Willoughby BEVEL GEAR GENERATOR OPERATOR - Last Filed: 12/27/22 18:50> Resp: Effort & Inspection: normal respiratory effort <Stefanie Willoughby BEVEL GEAR GENERATOR OPERATOR - Last Filed: 12/27/22 18:50> Auscultation: clear to auscultation bilaterally <Stefanie Willoughby BEVEL GEAR GENERATOR OPERATOR - Last Filed: 12/27/22 18:50> Cardio: Rate: regular rate <Stefanie Willoughby BEVEL GEAR GENERATOR OPERATOR - Last Filed: 12/27/22 18:50> Rhythm: regular rhythm <Stefanie Willoughby BEVEL GEAR GENERATOR OPERATOR - Last Filed: 12/27/22 18:50> Peripheral pulses: Peripheral pulses 2+ throughout <Stefanie Willoughby BEVEL GEAR GENERATOR OPERATOR - Last Filed: 12/27/22 18:50> GI: Inspection: Yes normal to inspection <Stefanie Willougbhy BEVEL GEAR GENERATOR OPERATOR - Last Filed: 12/27/22 18:50> Palpation (GI): Soft to palpation and nontender <Stefanie Willoughby BEVEL GEAR GENERATOR OPERATOR - Last Filed: 12/27/22 18:50> Auscultation: normal bowel sounds <Stefanie Willoughby BEVEL GEAR GENERATOR OPERATOR - Last Filed: 18:50> Back/Spine/Pelvis: Thoracic/Lumbar Spine: thoracic and lumbar spine normal to inspection <Stefanie Willoughby BEVEL GEAR GENERATOR OPERATOR - Last Filed: 12/27/22 18:50> Skin: General skin exam: no rashes or lesions noted <Stefanie Willoughby BEVEL GEAR GENERATOR OPERATOR - Last Filed: 12/27/22 18:50> Neuro: General: patient oriented x3, no focal motor deficits and normal sensation to monofilament <Stefanie Willoughby BEVEL GEAR GENERATOR OPERATOR - Last Filed: 12/27/22 18:50> Cranial nerves: Yes Equal, round and reactive pupils present <Stefanie Willoughby NP - Last Filed: 12/27/22 18:50> Cognition (Neuro): normal cognition <Stefanie Willoughby NP - Last Filed: 12/27/22 18:50> Speech: No Abnormal speech present <Stefanie Willoughby NP - Last Filed: 12/27/22 18:50> Gait exam (Neuro): Normal gait present <Stefanie Willoughby NP - Last Filed: 12/27/22 18:50> Motor exam (neuro): 5/5 motor strength present throughout <Stefanie Willoughby NP - Last Filed: 12/27/22 18:50> Extrem: Other: patient had a 3.5, irregular, circumferential laceration on the palmar aspect of his left index finger at the level of the distal phalange. laceration resulted in a skin flap which was attached at the proximal aspect of the lac. oozing of blood noted with dried blood on the patient's palm and clothing. patient had full ROM of all his digits and no loss of sensation. <Stefanie Willoughby NP - Last Filed: 12/27/22 18:50> General: Yes normal to inspection <Stefanie Willoughby NP - Last Filed: 12/27/22 18:50> Hand/finger images: 1. area of skin laceration <RAQUEL Strauss - Last Filed: 12/27/22 16:22> Hand/finger images: 1. area of skin laceration <Stefanie Willoughby NP - Last Filed: 12/27/22 18:50> Course Course Course Narrative: RME - 77 yo male presents to the ER from Urgent Care for evaluation of left index finger injury. 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 It resulted in a large avulsion of the pulp of the distal left index finger. no active bleeding. he able to flex and extend at the PIP and DIP joints. Plan: XR, tdap, suture repair <RAQUEL Strauss - Last Filed: 12/27/22 16:22> Reevaluation(s) Reevaluation #1: Patient seen in conjunction w/ [employer] student Sanjuanita BYRNE who assisted with nerve block and wound repair See procedure note. Patient will be sent home with prophylactic antibiotics. Patient received an updated tetanus while he was here. Reviewed worrisome signs and symptoms with the patient when to return to the emergency room. Comfortable with plan for discharge home <Stefanie Willoughby NP - Last Filed: 12/27/22 18:50> Medications Administered Discontinued Medications Generic Name Dose Route Start Last Admin Trade Name Freq PRN Reason Stop Dose Admin Diphtheria/Tetanus/Acell Pertussis 0.5 ml 12/27/22 16:17 12/27/22 17:18 Diphth,Pertus(Acell),Tet Adult 0.5 Ml Syringe IM 12/27/22 16:18 0.5 ml .ONCE ONE Administration Lidocaine HCl 2 ml 12/27/22 17:08 12/27/22 17:38 Lidocaine Hcl 2% 2 Ml Vial INFILTRATI 12/27/22 17:09 2 ml ONCE ONE Administration Lidocaine HCl 2 ml 12/27/22 17:08 12/27/22 17:38 Lidocaine Hcl 2% 2 Ml Vial INFILTRATI 12/27/22 17:09 2 ml ONCE ONE Administration <RAQUEL Strauss - Last Filed: 12/27/22 16:22> Medications Administered Discontinued Medications Generic Name Dose Route Start Last Admin Trade Name Freq PRN Reason Stop Dose Admin Diphtheria/Tetanus/Acell Pertussis 0.5 ml 12/27/22 16:17 12/27/22 17:18 Diphth,Pertus(Acell),Tet Adult 0.5 Ml Syringe IM 12/27/22 16:18 0.5 ml .ONCE ONE Administration Lidocaine HCl 2 ml 12/27/22 17:08 12/27/22 17:38 Lidocaine Hcl 2% 2 Ml Vial INFILTRATI 12/27/22 17:09 2 ml ONCE ONE Administration Lidocaine HCl 2 ml 12/27/22 17:08 12/27/22 17:38 Lidocaine Hcl 2% 2 Ml Vial INFILTRATI 12/27/22 17:09 2 ml ONCE ONE Administration <Stefanie Willoughby NP - Last Filed: 12/27/22 18:50> Medical Decision Making Medical Decision Making MDM Narrative: patient is a 77-year-old male right hand dominant who presented for laceration of the left index finger. X-ray showed no acute fractures or malalignment. nerve block administered, wound irrigated, sutured, and dressing applied. Patient was instructed to keep the site clean, avoid soaking in water, and follow up with primary care for suture removal in 7-10days. <Stefanie Willoughby NP - Last Filed: 12/27/22 18:50> Differential Diagnosis Differential Diagnoses: The differential diagnosis associated with the presentation includes <Stefanie Willoughby NP - Last Filed: 12/27/22 18:50> laceration, fracture, abrasion <Stefanie Willoughby NP - Last Filed: 12/27/22 18:50> Independent Interpretation I performed an independent interpretation of an: Plain X-Ray <Stefanie Willoughby NP - Last Filed: 12/27/22 18:50> Interpretation: i reviewed the radiologist's note and agree with the interpretation <Stefanie Willoughby NP - Last Filed: 12/27/22 18:50> Radiology Impression Discussion of test interpretation with radiology: I have reviewed the radiologist's reading. <Stefanie Willoughby NP - Last Filed: 12/27/22 18:50> Radiologist Impression: [place] [id number] XRay Report Signed Patient: Jacob Snow MR#: [id number] : 1945 Acct:[id number] Age/Sex: 77 / M ADM Date: 12/27/22 Loc: .ED Attending Dr: Ordering Physician: Michelle Larson Date of Service: 12/27/22 Procedure(s): XR finger LT min 2V Accession Number(s): [id number] cc: Michelle Larson~ EXAMINATION: XR FINGER, LEFT CLINICAL INFORMATION: Index finger injury.? COMPARISON: Radiograph of the left hand 03/29/2017.? TECHNIQUE: Three views of the left index finger. FINDINGS: Redemonstration of small radiopaque bodies along the soft tissues of the fifth digit, stable compared to 03/29/2017. New scattered radiopaque densities in the soft tissues of the first through fourth digits, could represent foreign bodies. Soft tissue thickening with a laceration in the distal aspect of the second digit. No acute fractures or malalignment. Severe joint space narrowing and subcortical sclerosis of the first carpometacarpal joint and triscaphe space. Moderate joint space narrowing with osteophytes at multiple interphalangeal joints and first metatarsophalangeal joint. No erosions.? XR/XR finger LT min 2V IMPRESSION: 1.? Soft tissue thickening with a laceration in the distal aspect of the second digit. 2.? New radiopaque densities in the soft tissues of the first through fourth digits, possibly foreign bodies. 3.? No acute fractures or malalignment. 4.? 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 ? <Stefanie Willoughby NP - Last Filed: 12/27/22 18:50> Procedures Laceration Laceration 1: Site: hand (left index finger) <Stefanie Willoughby NP - Last Filed: 12/27/22 18:50> Size (cm): 3.5 <Stefanie Willoughby NP - Last Filed: 12/27/22 18:50> Description: flap and irregular <Stefanie Willoughby NP - Last Filed: 12/27/22 18:50> Depth: involves muscle layer <Stefanie Willoughby NP - Last Filed: 12/27/22 18:50> Local Anesthetic: lidocaine 2% <Stefanie Willoughby NP - Last Filed: 12/27/22 18:50> Amount of anesthesia used (mL): 3.0 <Stefanie Willoughby NP - Last Filed: 12/27/22 18:50> Pre-repair: irrigated extensively <Stefanie Willoughby NP - Last Filed: 12/27/22 18:50> Skin layer closed with: vicryl <Stefanie Willoughby NP - Last Filed: 12/27/22 18:50> Size (cm): 5-0 <Stefanie Willoughby NP - Last Filed: 12/27/22 18:50> Number of sutures: 10 <Stefanie Willoughby NP - Last Filed: 12/27/22 18:50> Technique: simple, interrupted <Stefanie Willoughby NP - Last Filed: 12/27/22 18:50> Nerve Block Nerve Block 1: Time out performed: No <Stefanie Willoughby NP - Last Filed: 12/27/22 18:50> Local Anesthetic: lidocaine 2% <Stefanie Willoughby NP - Last Filed: 12/27/22 18:50> Amount of anesthesia used (mL): 3.0 <Stefanie Willoughby NP - Last Filed: 12/27/22 18:50> Side: left (index finger) <Stefanie Willoughby NP - Last Filed: 12/27/22 18:50> Nerve Blocks: digital <Stefanie Willoughby NP - Last Filed: 12/27/22 18:50> Procedure Successful: Yes <Stefanie Willoughby NP - Last Filed: 12/27/22 18:50> Patient Tolerated Procedure: well <Stefanie Willoughby NP - Last Filed: 12/27/22 18:50> Complications: none <Stefanie Willoughby NP - Last Filed: 12/27/22 18:50> Discharge Plan Discharge Clinical Impression: Laceration <RAQUEL Strauss - Last Filed: 12/27/22 16:22> Patient Disposition: Home, Self-Care <RAQUEL Strauss Last Filed: 12/27/22 16:22> Instructions: Finger Laceration (ED) <RAQUEL Strauss Last Filed: 12/27/22 16:22> Additional Instructions: Sutures out in 7 -10 days Leave the dressing in place until tomorrow then remove and wash with soap and water daily Keep it clean, covered and dry Tylenol for pain as needed Take the antibiotics as prescribed Return for increasing redness, swelling, pain, fever <RAQUEL Strauss Last Filed: 12/27/22 16:22> Prescriptions: New cephalexin 500 mg capsule 500 mg PO BID Qty: 14 0RF No Action simvastatin 40 mg tablet 40 mg PO BEDTIME Qty: 90 2RF metformin 500 mg tablet 500 mg PO BID 90 Days Qty: 180 1RF sildenafil 100 mg tablet 100 mg PO DAILY PRN (Reason: sexual activity) 10 Days Qty: 10 0RF Rx Instructions: administer 30 minutes to 4 hours before activity lisinopril 5 mg tablet 5 mg PO DAILY 90 Days Qty: 90 0RF brimonidine 0.15 % drops ophthalmic (eye) latanoprost 0.005 % drops 1 drp ophthalmic (eye) BEDTIME timolol maleate 0.5 % drops 1 drp ophthalmic (eye) BID aspirin 81 mg tablet,delayed release (DR/EC) 81 mg PO DAILY <RAQUEL Strauss - Last Filed: 12/27/22 16:22> Referrals: Clarence Dos Santos, CASHIER WR[employer]PER- [Primary Care Provider] - 1 week <RAQUEL Strauss - Last Filed: 12/27/22 16:22> Stand Alone Forms: Work/School Release <RAQUEL Strauss - Last Filed: 12/27/22 16:22> Interventions: ED Discharge Assessment Last Done: 12/27/22 18:39 <RAQUEL Strauss - Last Filed: 12/27/22 16:22> Discharge Date/Time: 12/27/22 18:42 <RAQUEL Strauss - Last Filed: 12/27/22 16:22>
[2022-12-27] MEDS: Diphth,Pertus(ACell),Tet Adult 0.5 ML SYRINGE IM (17:18)
--- NOTE | 2022-12-27 18:38 | PC.NURSE ---
pt. sitting up in bed. Wound is cleaned and bandaged. Pt. pending d/c.
== END 2022-12-27 18:42 | disposition home or self-care (01) ==
PROVIDERS: Emergency Provider Emergency Medicine Emergency Medical Services; PCP Nurse Practitioner Family
DX: S61.211A Laceration without foreign body of left index finger without damage to nail, initial encounter (principal); S60.512A Abrasion of left hand, initial encounter; W31.82XA Contact with other commercial machinery, initial encounter; Y93.9 Activity, unspecified; Y92.9 Unspecified place or not applicable; Y99.0 Civilian activity done for income or pay; Z79.899 Other long term (current) drug therapy; Z23 Encounter for immunization
CPT/HCPCS: 12042; 73140; 90471; 90715; 99282; 99284

== ENCOUNTER 2023-01-05 07:54 | Emergency (ER) | payer OTHER, MEDICARE, SELFPAY ==
[2023-01-05 08:00] VITALS: BP 135/47; PULSE 68; RESP 16; TEMP 36.6; O2SAT 98; BMI 26.6
--- NOTE | 2023-01-05 08:38 | ED.WOUNDLAC ---
HPI - Wound/Laceration General Chief Complaint: Wound/Laceration Stated Complaint: suture removal Time Seen by Provider: 01/05/23 08:27 Source: patient Mode of arrival: ambulatory Limitations: no limitations History of Present Illness HPI narrative: 77 yo male presents to the ER for suture removal. He was seen here on 12/27 after he cut his left index finger with a metal dealer, The tip had a large flap that was repaired with 10 sutures. He states 2 of the sutures have come out on their own. He has ongoing pain at the pulp of the fingertip. No numbness or tingling. No redness or drainage. Onset (ago): day(s) Extremity Location: left: hand Place: work Patient tetanus UTD: Yes Context: accidental Associated symptoms: pain Related Data Home Medications Medication Instructions Recorded Confirmed aspirin 81 mg tablet,delayed 81 mg PO DAILY 08/24/20 12/27/22 release brimonidine 0.15 % eye drops drp ophthalmic (eye) 08/24/20 12/27/22 latanoprost 0.005 % eye drops 1 drp ophthalmic (eye) BEDTIME 08/24/20 12/27/22 timolol maleate 0.5 % eye drops 1 drp ophthalmic (eye) BID 08/24/20 12/27/22 Previous Rx's Medication Instructions Recorded simvastatin 40 mg tablet 40 mg PO BEDTIME #90 tabs 04/30/22 metformin 500 mg tablet 500 mg PO BID 90 days #180 tabs 12/09/22 sildenafil 100 mg tablet 100 mg PO DAILY PRN sexual 12/11/22 activity 10 days #10 tabs lisinopril 5 mg tablet 5 mg PO DAILY 90 days #90 tabs 12/13/22 cephalexin 500 mg capsule 500 mg PO BID #14 caps 12/27/22 Allergies Allergy/AdvReac Type Severity Reaction Status Date / Time Iodinated Contrast Media Allergy Mild HIVES Verified 12/27/22 16:17 [IV DYE, IODINE CONTAINING CONTRAST ] Review of Systems Review of Systems: Yes all other systems are reviewed and are negative FORMERLY [facility], [facility] Past Medical History Medical History Actinic keratosis Arthritis CKD (chronic kidney disease) stage 3, GFR 30-59 ml/min Diabetes Diverticulitis Dyslipidemia Enlarged prostate [place] disease Glaucoma HTN (hypertension) Internal hemorrhoids Tinea unguium Tubular adenoma Surgical History History of cataract surgery History of colonoscopy History of cystoscopy History of removal of neck cyst History of umbilical hernia repair Family History Family History Father Lung cancer Smoker Mother History of CVA (cerebrovascular accident) Dementia Stroke Son No problems noted. Daughter No problems noted. 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 Oriented X3. No acute distress. HEENT: normal inspection CVS: Normal heart rate and rhythm. Pulses normal. Respiratory: No respiratory distress. Skin: Skin warm and dry. Normal skin color. Normal skin turgor. No rashes. Extremities: left index finger with an appropriately healing wound to the tip with some black dried blood, tenderness to the pulp. <3 sec cap refill. no warmth or redness Neuro: Oriented X 3. No motor deficit. No sensory deficit. Medical Decision Making Medical Decision Making MDM Narrative: 77 yo male presents removal and left index finger. wound is well approximated and healing appropriately. wound care discussed. stable for d/c home Differential Diagnosis Differential Diagnoses: The differential diagnosis associated with the presentation includes Appropriate wound healing, delayed wound healing, infection External Record Review External record reviewed: Outpatient record Critical Care Time Critical Care Time Critical Care Time: No Discharge Plan Discharge Clinical Impression: Visit for suture removal Patient Disposition: Home, Self-Care Instructions: Stitches Removal (ED) Additional Instructions: do not peel the steri strips off, they will come off on their own, usually in 7-10 days you can wash with soap and water briefly and pat dry If you develop new or worsening symptoms call 911 or come back to the ER for further evaluation. Prescriptions: No Action simvastatin 40 mg tablet 40 mg PO BEDTIME Qty: 90 2RF metformin 500 mg tablet 500 mg PO BID 90 Days Qty: 180 1RF sildenafil 100 mg tablet 100 mg PO DAILY PRN (Reason: sexual activity) 10 Days Qty: 10 0RF Rx Instructions: administer 30 minutes to 4 hours before activity lisinopril 5 mg tablet 5 mg PO DAILY 90 Days Qty: 90 0RF cephalexin 500 mg capsule 500 mg PO BID Qty: 14 0RF brimonidine 0.15 % drops ophthalmic (eye) latanoprost 0.005 % drops 1 drp ophthalmic (eye) BEDTIME timolol maleate 0.5 % drops 1 drp ophthalmic (eye) BID aspirin 81 mg tablet,delayed release (DR/EC) 81 mg PO DAILY Interventions: ED Discharge Assessment Last Done: 01/05/23 08:50 Discharge Date/Time: 01/05/23 08:50
== END 2023-01-05 08:50 | disposition home or self-care (01) ==
PROVIDERS: Emergency Provider Internal Medicine; PCP Nurse Practitioner Family
DX: Z48.02 Encounter for removal of sutures (principal); Z79.899 Other long term (current) drug therapy; Z87.891 Personal history of nicotine dependence
CPT/HCPCS: 99282

== ENCOUNTER 2023-06-21 13:51 | Outpatient (AMB) | payer MEDICARE, SELFPAY ==
[2023-06-21 13:56] VITALS: BP 132/64; PULSE 75; O2SAT 100; BMI 26.2
--- NOTE | 2023-06-21 13:56 | A.OFFPC_ITS ---
Vital Signs 06/21/23 13:56 Height 5 ft 5 in Weight 157 lb 8 oz BMI 26.2 BP 132/64 Blood Pressure Location Rt brachial Position Sitting Pulse 75 Pulse Source Pulse Oximeter Pulse Oximetry (%) 100 Oxygen Delivery Method Room Air Intake Visit Reasons: Annual PE Allergies Iodinated Contrast Media [IV DYE, IODINE CONTAINING CONTRAST ] Allergy (Mild, Verified 06/21/23 13:58) HIVES Tobacco use date assessed: 06/21/23 Fall risk assessment: No Falls in past year Last assessed Fall Risk: 06/21/23 Dental Screening Dental Screen Date: 06/21/23 Did you have a dental visit in the last 12 months?: Yes Did you have a dental problem in the last 6 months where you did not have access to dental care?: No Was dental information given to patient?: Patient has dentist HPI Annual PE HPI Details Pt is here for a PE. Labs have been ordered. No further colon screens are needed. Due for PSA, will order. Denies dribbling with urination, weak stream, and nocturia. Pt is a diabetic, on an CRAIG and a statin. A1C in office today is 6.2. Due for microalbumin, will order. Denies polyuria, polydipsia, and neuropathy. Pt denies any signs and symptoms of hypoglycemia and does know how to correct it. Pt has an upcoming eye exam. Pt reports having COVID 2 weeks ago. He reports feeling mostly richar, though still has some residual weakness/fatigue. He has lost some weight. Pt follows up with podiatry. [facility] Medical History CKD (chronic kidney disease) stage 3, GFR 30-59 ml/min Tinea unguium Internal hemorrhoids Diverticulitis Glaucoma Arthritis Enlarged prostate HTN (hypertension) [place] disease Actinic keratosis Tubular adenoma Dyslipidemia Diabetes Surgical History History of removal of neck cyst History of colonoscopy History of cystoscopy History of umbilical hernia repair History of cataract surgery Family History Father Lung cancer Smoker Mother History of CVA (cerebrovascular accident) Dementia Stroke Son No problems noted. Daughter No problems noted. 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 Romulo Engle, Michelle Funk, Ramesh White and colleagues, with an educational keyonna from [employer]. Review of Systems Const Denies chills and Denies fever(s) Eyes Denies blurry vision ENT Denies vertigo, Denies dizziness and Denies sore throat Card Denies chest pain at rest, Denies chest pain with activity, Denies diaphoresis, Denies dyspnea and Denies dyspnea on exertion Resp Denies cough, Denies dyspnea, Denies dyspnea on exertion and Denies wheezing GI Denies abdominal pain, Denies melena, Denies hematochezia, Denies constipation, Denies diarrhea and Denies loose stools Denies hematuria Musc Denies numbness and Denies tingling Skin/Breast Denies lesions Neuro Denies vertigo, Denies dizziness, Denies numbness and Denies tingling Psych Denies anxiety, Denies depression, Denies homicidal ideation, Denies suicidal ideation and Denies other (substance abuse) Aller/Immun Denies wheezing Physical exam (Primary Care) Vital Signs: Last Vital Signs Pulse 75 06/21/23 13:56 BP 132/64 06/21/23 13:56 Pulse Ox 100 06/21/23 13:56 Oxygen Delivery Method Room Air 06/21/23 13:56 BMI result Body Mass Index 26.2 Tobacco/Smoking Status: Tobacco use Status Tobacco use date assessed 06/21/23 06/21/23 14:01 Patient Tobacco Use Status Former Tobacco user 06/21/23 14:01 e-Cigarette/Vaping Use Never Used 06/21/23 14:01 Thrive Assessment: Date of Thrive Assessment Date Thrive assessed 06/21/22 06/21/23 14:01 Const General: cooperative Nutritional Appearance: well nourished Orientation/consciousness: patient oriented x3 HENMT Head: Yes normal to inspection, Yes normocephalic and Yes atraumatic Ears: TM's normal bilaterally Eyes General: appearance normal, both eyes and all related structures Alignment and Position: alignment normal and position normal Neck Neck: Yes normal visual inspection and Yes no lymphadenopathy Thyroid: Thyroid normal Resp Effort & Inspection: normal respiratory effort Auscultation: clear to auscultation bilaterally Cardio Rate: regular rate Rhythm: regular rhythm Heart sounds: S1 normal heart sound present, S2 normal heart sound present and no murmurs GI Palpation (GI): Soft to palpation and nontender Auscultation: normal bowel sounds Male General Exam: Yes normal external exam Penis: normal penis Scrotum: scrotum normal, testes descended bilaterally and no inguinal hernias Testes: no testicular mass Skin Rashes: no rashes Neuro General: patient oriented x3, moves all extremities, no focal motor deficits and deep tendon reflexes 2+ bilaterally Romberg Test: Negative Extrem Other: bilat feet: + sensation with use of monofilament Psych Appearance: grossly normal Mental Status: mental status grossly normal Speech and movement: Normal speech and movement present Affect: normal affect Attitude: cooperative Thought process: Normal thought process present Thought content: Normal thought content present Insight: Good insight present (Psych) Judgement: Good judgement present (Psych) Results AMB Hemoglobin A1c AMB Hemoglobin A1c 6.2 % Last Edit by Qiana Vazquez CMA on 06/21/23 14: 30 Results Reviewed Results Reviewed: Laboratory Last Values Hgb A1c (Clinic) 6.2 % (4.0-6.0) H 06/21/23 14:11 Assessment and Plan Assessment & Plan (1) Screening PSA (prostate specific antigen): Code(s): Z12.5 - Encounter for screening for malignant neoplasm of prostate Plan: PSA ordered (2) Diabetes: Code(s): E11.9 - Type 2 diabetes mellitus without complications Plan: Labs already ordered (3) Physical exam: Code(s): Z00.00 - Encounter for general adult medical examination without abnormal findings Plan: Labs already ordered Plan The patient agreed to the use of a biomedical repair technician for this encounter. Scribed for JUHI Kimbrough by Yuni Reyes biomedical repair technician, on 06/21/2023 at 14:05 EST. Orders: Orders AMB Hemoglobin A1c Today E11.9 - Type 2 diabetes mellitus without complications Prostate Specific Antigen Scr Today Z12.5 - Encounter for screening for malignant neoplasm of prostate Coding Level of Care Code Est Pt Prev Care >65y(95398) Diagnoses Screening PSA (prostate specific antigen) Z12.5 Diabetes E11.9 Physical exam Z00.00
== END 2023-06-21 14:27 | disposition home or self-care (01) ==
PROVIDERS: PCP Nurse Practitioner Family; Visit Provider Nurse Practitioner Family
DX: Z12.5 Encounter for screening for malignant neoplasm of prostate (principal); E11.9 Type 2 diabetes mellitus without complications; Z00.00 Encounter for general adult medical examination without abnormal findings
CPT/HCPCS: 83036; 99397

== ENCOUNTER 2023-07-09 07:58 | Outpatient (REF) | payer MEDICARE, SELFPAY | END 2023-07-09 07:59 | disposition home or self-care (01) | LOC: HO.HMGCLDS 07:58 | PROVIDERS: PCP Nurse Practitioner Family; Visit Provider Nurse Practitioner Family | DX: E11.9 Type 2 diabetes mellitus without complications (principal); Z12.5 Encounter for screening for malignant neoplasm of prostate | CPT/HCPCS: 36415; 80053; 80061; 81003; 82043; 82570; 84153; 84443; 85025 ==

== ENCOUNTER 2023-10-22 09:27 | Outpatient (AMB) | payer MEDICARE, SELFPAY ==
--- NOTE | 2023-10-22 09:43 | A.OFFPC_ITS ---
Vital Signs 10/22/23 09:45 Weight 166 lb BP 114/72 Blood Pressure Location Lt brachial Position Sitting Pulse 74 Pulse Source Pulse Oximeter Pulse Oximetry (%) 98 Oxygen Delivery Method Room Air Intake Visit Reasons: 4 month follow up Intake Note: Patient her for diabetes F/U. pt states he no longer checks sugars at home. Allergies Iodinated Contrast Media [IV DYE, IODINE CONTAINING CONTRAST ] Allergy (Mild, Verified 10/22/23 09:53) HIVES Tobacco use date assessed: 10/22/23 Fall risk assessment: No Falls in past year HPI 4 month follow up HPI Details Pt is a diabetic, on an CRAIG and a statin. A1C in office today is 7.1. Microalbumin is up to date. Denies polyuria, polydipsia, and neuropathy. Pt denies any signs and symptoms of hypoglycemia and does know how to correct it. Pt follows up with podiatry. Eye exam is up to date according to pt. Pt is working on his diet. [facility] Medical History CKD (chronic kidney disease) stage 3, GFR 30-59 ml/min Tinea unguium Internal hemorrhoids Diverticulitis Glaucoma Arthritis Enlarged prostate HTN (hypertension) [place] disease Actinic keratosis Tubular adenoma Dyslipidemia Diabetes Surgical History History of removal of neck cyst History of colonoscopy History of cystoscopy History of umbilical hernia repair History of cataract surgery Family History Father Lung cancer Smoker Mother History of CVA (cerebrovascular accident) Dementia Stroke Son No problems noted. Daughter No problems noted. 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 20901 - PHQ-9 Billing: Patient declined-do not bill Source: Developed by Drs. Romulo Engle, Michelle Funk, Ramesh White and colleagues, with an educational keyonna from [employer]. Thrive Questionnaire Date Thrive assessed: 10/22/23 What is your living situation today?: I choose not to answer this question Within the past 12 months, did the food you bought not last and you didn't have the money to get more?: I choose not to answer this question Within the past 12 months, did you worry whether your food would run out before you got money to buy more?: I choose not to answer this question Do you have trouble getting transportation to medical appointments?: I choose no t to answer this question Do you have trouble paying your heating and electricity bill?: I choose not to answer this question Do you have trouble taking care of your child, family member or friend?: I choose not to answer this question Do you have trouble with day-to-day activities such as bathing, preparing meals, shopping, managing finances, etc.?: I choose not to answer this question Are you currently unemployed and looking for a job?: I choose not to answer this question Are you interested in more education?: I choose not to answer this question Currently or been in a relationship where the following occur: I choose not to answer this question THRIVE Score: 0 AUDIT C Alcohol Use Questionnaire (AUDIT-C) 1. How often do you have a drink containing alcohol?: Never 3. How often do you have six or more drinks on one occasion?: Never Total Score: 0 Score Reviewed/Action Taken: No EMILY-7 AMB Questionnaire EMILY-7 Date EMILY - 7 assessed: 10/22/23 Source: Developed by Drs. Romulo Engle, Michelle Funk, Ramesh Whtie and colleagues, with an educational keyonna from [employer]. EMILY-7 Assessment Billing EMILY-7 Assessment Tool: pt declined-do not bill Review of Systems Const Reports as per HPI Physical exam (Primary Care) Vital Signs: Last Vital Signs Pulse 74 10/22/23 09:45 BP 114/72 10/22/23 09:45 Pulse Ox 98 10/22/23 09:45 Oxygen Delivery Method Room Air 10/22/23 09:45 Tobacco/Smoking Status: Tobacco use Status Tobacco use date assessed 10/22/23 10/22/23 09:54 Patient Tobacco Use Status Former Tobacco user 10/22/23 09:44 e-Cigarette/Vaping Use Never Used 10/22/23 09:44 Thrive Assessment: Date of Thrive Assessment Date Thrive assessed 10/22/23 10/22/23 09:54 Currently or been in a relationship where the following occur: I choose not to answer this question Const General: cooperative Orientation/consciousness: patient oriented x3 HENMT Other: cerumen noted to left ear, after ear lavage cerumen still noted Resp Effort & Inspection: normal respiratory effort Auscultation: clear to auscultation bilaterally Cardio Rate: regular rate Rhythm: regular rhythm Heart sounds: S1 normal heart sound present and S2 normal heart sound present Neuro General: patient oriented x3 Extrem Other: bilat feet: + sensation with use of monofilament, slightly elongated toenails Psych Appearance: grossly normal Mental Status: mental status grossly normal Speech and movement: Normal speech and movement present Affect: normal affect Attitude: cooperative Thought process: Normal thought process present Thought content: Normal thought content present Insight: Good insight present (Psych) Judgement: Good judgement present (Psych) Office Procedures Cerumen Removal From which ear canal was the cerumen removed: left Removal: irrigation Notes: patient tolerated procedure well and no complications (not all of cerumen removed, instructed to use ear cerumen drops x 3 days, and return to office at the end of the week) [id number] Irrigation/Lavage Assessment and Plan Assessment & Plan (1) Diabetes: Code(s): E11.9 - Type 2 diabetes mellitus without complications Plan: Labs ordered (2) Cerumen impaction: Code(s): H61.20 - Impacted cerumen, unspecified ear Plan: Ear flushed in office Plan The patient agreed to the use of a medical collections specialist for this encounter. Scribed for JUHI Kimbrough by Yuni Reyes medical collections specialist, on 10/22/2023 at 10:00 EST. Orders: Orders Complete Blood Count Auto Diff Today E11.9 - Type 2 diabetes mellitus without complications Comprehensive [place]. Panel Fast Today E11.9 - Type 2 diabetes mellitus without complications TSH reflex Free T4 Today E11.9 - Type 2 diabetes mellitus without complications UA CC w/rflx Micro + Cult Today E11.9 - Type 2 diabetes mellitus without complications Lipid Panel Today E11.9 - Type 2 diabetes mellitus without complications Coding Level of Care Code Est Pt Level 3 (83016) Diagnoses Diabetes E11.9 Cerumen impaction H61.20 CPT Codes Office Procedure - CPT: 99785-Fij Irrigation/Lavage ([id number])
[2023-10-22 09:45] VITALS: BP 114/72; PULSE 74; O2SAT 98
== END 2023-10-22 10:43 | disposition home or self-care (01) ==
PROVIDERS: PCP Nurse Practitioner Family; Visit Provider Nurse Practitioner Family
DX: E11.9 Type 2 diabetes mellitus without complications (principal); H61.22 Impacted cerumen, left ear
CPT/HCPCS: 69209; 83036; 99213

== ENCOUNTER 2024-02-18 08:37 | Outpatient (AMB) | payer MEDICARE, SELFPAY ==
--- NOTE | 2024-02-18 08:40 | A.OFFPC_ITS ---
Vital Signs 02/18/24 08:42 Height 5 ft 5 in Weight 164 lb BMI 27.3 BP 120/74 Blood Pressure Location Rt brachial Position Sitting Pulse 72 Pulse Source Pulse Oximeter Pulse Oximetry (%) 98 Oxygen Delivery Method Room Air Intake Visit Reasons: 3 month f/up Diabetes Intake Note: Patient here for diabetes follow up. Allergies Iodinated Contrast Media [IV DYE, IODINE CONTAINING CONTRAST ] Allergy (Mild, Verified 02/18/24 09:03) HIVES Medication List - Last Reconciled 02/18/24 by JUHI Zepeda aspirin 81 mg PO DAILY brimonidine 0.15% drps ophthalmic (eye) latanoprost 0.005% 1 drp ophthalmic (eye) BEDTIME lisinopril 10 mg PO DAILY metformin 500 mg PO BID 90 days sildenafil 100 mg PO DAILY PRN 10 days simvastatin 40 mg PO BEDTIME timolol maleate 0.5% 1 drp ophthalmic (eye) BID Tobacco use date assessed: 10/22/23 Fall risk assessment: No Falls in past year Last assessed Fall Risk: 02/18/24 Dental Screening Dental Screen Date: 02/18/24 Did you have a dental visit in the last 12 months?: No Did you have a dental problem in the last 6 months where you did not have access to dental care?: No Was dental information given to patient?: Patient has dentist HPI 3 month f/up Diabetes HPI Details Pt is a diabetic, on an CRAIG and a statin. A1C in office today is 6.3. Microalbumin is up to date. Denies polyuria, polydipsia, and neuropathy. Pt denies any signs and symptoms of hypoglycemia and does know how to correct it. Pt follows up with podiatry. Pt reports multiple skin lesions to his scalp. Will refer to derm. Eye exam is scheduled. [facility] Medical History CKD (chronic kidney disease) stage 3, GFR 30-59 ml/min Tinea unguium Internal hemorrhoids Diverticulitis Glaucoma Arthritis Enlarged prostate HTN (hypertension) [place] disease Actinic keratosis Tubular adenoma Dyslipidemia Diabetes Surgical History History of removal of neck cyst History of colonoscopy History of cystoscopy History of umbilical hernia repair History of cataract surgery Family History Father Lung cancer Smoker Mother History of CVA (cerebrovascular accident) Dementia Stroke Son No problems noted. Daughter No problems noted. 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 How often do you have a drink containing alcohol?: Monthly or less 2. How many drinks containing alcohol do you have on a typical day when you are drinking?: 1 or 2 3. How often do you have six or more drinks on one occasion?: Never Total Score: 1 Score Reviewed/Action Taken: No EMILY-7 AMB Questionnaire EMILY-7 Date EMILY - 7 assessed: 10/22/23 Source: Developed by Drs. Romulo Engle, Michelle Funk, Ramesh White and colleagues, with an educational keyonna from [employer]. Review of Systems Const Reports as per HPI Physical exam (Primary Care) Vital Signs: Last Vital Signs Pulse 72 02/18/24 08:42 BP 120/74 02/18/24 08:42 Pulse Ox 98 02/18/24 08:42 Oxygen Delivery Method Room Air 02/18/24 08:42 BMI result Body Mass Index 27.3 Tobacco/Smoking Status: Tobacco use Status Tobacco use date assessed 10/22/23 02/18/24 08:48 Patient Tobacco Use Status Former Tobacco user 02/18/24 08:48 e-Cigarette/Vaping Use Never Used 02/18/24 08:48 Thrive Assessment: Date of Thrive Assessment Date Thrive assessed 10/22/23 02/18/24 08:48 Const General: cooperative Orientation/consciousness: patient oriented x3 Resp Effort & Inspection: normal respiratory effort Auscultation: clear to auscultation bilaterally Cardio Rate: regular rate Rhythm: regular rhythm Heart sounds: S1 normal heart sound present and S2 normal heart sound present Skin Other: several macular, dry appearing, lesions to pt's scalp. Neuro General: patient oriented x3 Extrem Other: bilat feet: + sensation with use of monofilament, feet intact Psych Appearance: grossly normal Mental Status: mental status grossly normal Speech and movement: Normal speech and movement present Affect: normal affect Attitude: cooperative Thought process: Normal thought process present Thought content: Normal thought content present Insight: Good insight present (Psych) Judgement: Good judgement present (Psych) Results AMB Hemoglobin A1c AMB Hemoglobin A1c 6.3 % Last Edit by KENY Montes on 02/18/24 09 :04 Results Reviewed Results Reviewed: Laboratory Last Values Hgb A1c (Clinic) 6.3 % (4.0-6.0) H 02/18/24 09:03 Assessment and Plan Assessment & Plan (1) Diabetes: Code(s): E11.9 - Type 2 diabetes mellitus without complications Plan: A1C done in office (2) Skin lesions: Code(s): L98.9 - Disorder of the skin and subcutaneous tissue, unspecified Plan: referred to derm. Plan The patient agreed to the use of a infertility medical assistant for this encounter. Scribed for JUHI Kimbrough by Yuni Reyes infertility medical assistant, on 02/18/2024 at 09:05 EST. Orders: Orders AMB Hemoglobin A1c Today E11.9 - Type 2 diabetes mellitus without complications Referrals Dermatology Referral L98.9 - Disorder of the skin and subcutaneous tissue, unspecified Coding Level of Care Code Est Pt Level 3 (83642) Diagnoses Diabetes E11.9 Skin lesions L98.9
[2024-02-18 08:42] VITALS: BP 120/74; PULSE 72; O2SAT 98; BMI 27.3
== END 2024-02-18 10:11 | disposition home or self-care (01) ==
PROVIDERS: PCP Nurse Practitioner Family; Visit Provider Nurse Practitioner Family
DX: E11.9 Type 2 diabetes mellitus without complications (principal); L98.9 Disorder of the skin and subcutaneous tissue, unspecified
CPT/HCPCS: 83036; 99213

== ENCOUNTER 2024-04-16 14:41 | Outpatient (AMB) | payer MEDICARE, SELFPAY ==
--- NOTE | 2024-04-16 14:43 | AM.OFFWIN_ITS ---
Intake Vital Signs 04/16/24 14:44 Height 5 ft 5 in Weight 161 lb BMI 26.8 BP 122/76 Blood Pressure Location Rt brachial Position Sitting Pulse 74 Pulse Source Pulse Oximeter Temp 98.5 F Temp Source Oral Pulse Oximetry (%) 98 Intake Visit Reasons: EP RT knee Pain Intake Note: Pt here c/o RT Knee pain. Ongoing. Worse recently Patient Tobacco Use Status: Former Tobacco user Allergies Iodinated Contrast Media [IV DYE, IODINE CONTAINING CONTRAST ] Allergy (Mild, Verified 04/16/24 14:43) HIVES Do you need a note to return to daycare/school/sports/work: No HPI HPI Comments History of Present Illness Details Patient is a 79-year-old male complaining of right knee pain for the last month. He states it has been getting worse in the past week and his made him come in today. He denies any injury, he denies any history of gout or bursitis or joint effusion. He states he has not done anything to try to make it better. He states it is worse when he pushes on the area and when he is walking or if he bends it while sitting. [facility] Medical History CKD (chronic kidney disease) stage 3, GFR 30-59 ml/min Tinea unguium Internal hemorrhoids Diverticulitis Glaucoma Arthritis Enlarged prostate HTN (hypertension) [place] disease Actinic keratosis Tubular adenoma Dyslipidemia Diabetes Surgical History History of removal of neck cyst History of colonoscopy History of cystoscopy History of umbilical hernia repair History of cataract surgery Family History Father Lung cancer Smoker Mother History of CVA (cerebrovascular accident) Dementia Stroke Son No problems noted. Daughter No problems noted. 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 Cognitive needs: No Hearing needs: No Vision needs: No Review of Systems Const All systems reviewed & are unremarkable except as noted in HPI and below Physical Exam Vital Signs: Last Vital Signs Temp 98.5 F 04/16/24 14:44 Pulse 74 04/16/24 14:44 BP 122/76 04/16/24 14:44 Pulse Ox 98 04/16/24 14:44 BMI result Body Mass Index 26.8 Const General: cooperative, healthy appearing, comfortable and no acute distress Orientation/consciousness: patient oriented x3 Limitations: no limitations HEENT Head: Yes normal to inspection Resp Effort & Inspection: normal respiratory effort and able to speak in complete sentences Neuro General: patient oriented x3 Extrem Right lower extremity: knee Details: tenderness Location: of the infrapatellar area, swelling Location: of the infrapatellar area, normal ROM and knee ligament exam normal; no abrasions, no lacerations, no ecchymosis and no unusual warmth Left lower extremity: knee Details: normal to inspection Assessment & Plan Assessment & Plan (1) Right medial knee pain: Code(s): M25.561 - Pain in right knee Plan: will get xray though low suspicion for fracture, most likely bursitis or joint effusion, Giorgi wrapped patient's knee, recommended resting, using the Giorgi wrap most of the day for the next several days and ice. If no resolution in symptoms, follow up with PCP. Plan See above Orders: Orders XR knee RT 3V Today M25.561 - Pain in right knee Coding Level of Care Code Est Pt Level 3 (02264) Diagnoses Right medial knee pain M25.561
[2024-04-16 14:44] VITALS: BP 122/76; PULSE 74; TEMP 36.9; O2SAT 98; BMI 26.8
== END 2024-04-16 15:14 | disposition home or self-care (01) ==
PROVIDERS: PCP Nurse Practitioner Family; Visit Provider Physician Assistant
DX: M25.561 Pain in right knee (principal)
CPT/HCPCS: 99213

== ENCOUNTER 2024-04-16 15:02 | Outpatient (REF) | payer MEDICARE, SELFPAY ==
--- NOTE | ~2024-04-16 | XR_ITS ---
EXAMINATION: XR KNEE, RIGHT CLINICAL INFORMATION: Right knee pain. COMPARISON: None available. TECHNIQUE: Four views of the right knee. FINDINGS: Alignment is anatomic. There is mild medial tibiofemoral and patellofemoral cartilage space loss. There are tricompartmental osteophytes. Spurring of the tibial spines. Small suprapatellar joint effusion. Vascular calcifications are present. XR/XR knee RT 3V IMPRESSION: Mild osteoarthritis of the right knee.
== END 2024-04-16 15:03 | disposition home or self-care (01) ==
LOC: HO.HMGCX 15:02
PROVIDERS: PCP Nurse Practitioner Family; Visit Provider Physician Assistant
DX: M25.561 Pain in right knee (principal)
CPT/HCPCS: 73562

== ENCOUNTER 2024-05-13 10:13 | Outpatient (AMB) | payer MEDICARE, SELFPAY ==
--- NOTE | 2024-05-13 10:14 | MHC.OFFWIV ---
Intake Vital Signs 05/13/24 10:15 Weight 157 lb BP 120/68 Blood Pressure Location Rt brachial Position Sitting Pulse 91 Pulse Source Pulse Oximeter Pulse Oximetry (%) 98 Oxygen Delivery Method Room Air Intake Visit Reasons: EP- Low back pain, hurts when walking, or sitting Intake Note: Patient here for lower back pain, hurts when sitting,standing and walking. Patient Tobacco Use Status: Former Tobacco user Allergies Iodinated Contrast Media [IV DYE, IODINE CONTAINING CONTRAST ] Allergy (Mild, Verified 05/13/24 10:16) HIVES Do you need a note to return to daycare/school/sports/work: No HPI EP- Low back pain, hurts when walking, or sitting HPI Details This is a 79 year old male patient who presents today with acute on chronic lower back pain. This exacerbation started about 2 weeks ago. Denies any inciting event such as lifting heavy item or a fall. Describes constant, aching, midline lower back pain with radiation toward left hip. Denies any leg weakness/numbness or radiation down legs. Has been using Voltaren gel on back and night and this has been helping him sleep. [facility] Medical History CKD (chronic kidney disease) stage 3, GFR 30-59 ml/min Tinea unguium Internal hemorrhoids Diverticulitis Glaucoma Arthritis Enlarged prostate HTN (hypertension) [place] disease Actinic keratosis Tubular adenoma Dyslipidemia Diabetes Surgical History History of removal of neck cyst History of colonoscopy History of cystoscopy History of umbilical hernia repair History of cataract surgery Family History Father Lung cancer Smoker Mother History of CVA (cerebrovascular accident) Dementia Stroke Son No problems noted. Daughter No problems noted. 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 Cognitive needs: No Hearing needs: No Vision needs: No Review of Systems Const All systems reviewed & are unremarkable except as noted in HPI and below Physical Exam Vital Signs: Last Vital Signs Pulse 91 05/13/24 10:15 BP 120/68 05/13/24 10:15 Pulse Ox 98 05/13/24 10:15 Oxygen Delivery Method Room Air 05/13/24 10:15 Const General: cooperative Nutritional Appearance: average body habitus Resp Effort & Inspection: normal respiratory effort Back/Spine/Pelvis Cervical Spine: normal cervical lordosis and cervical ROM normal Thoracic/Lumbar Spine: thoracic and lumbar spine normal to inspection, straight leg raise negative bilaterally, pain with thoraco-lumbar ROM, thoraco-lumbar ROM limited with forward flexion, with lateral flexion to the right, with lateral flexion to the left, with rotation to the right and with rotation to the left and lumbar spinal tenderness at L3, at L4 and at L5 Sacroiliac joints: bilaterally (mild ttp SIJ R>L) Skin General skin exam: no rashes or lesions noted Neuro General: gait normal (mildly antalgic), Normal light touch and pain sensation and deep tendon reflexes 2+ bilaterally Extrem General: Yes capillary refill normal and Yes no clubbing, cyanosis or edema Psych Appearance: grossly normal Mental Status: mental status grossly normal Speech and movement: Normal speech and movement present Assessment & Plan Assessment & Plan (1) Lumbar back pain: Code(s): M54.50 - Low back pain, unspecified Plan: XR obtained in the office today shows scoliosis, lordotic straightening, multilevel degenerative changes and compression deformities. The worst of this is at L5/S1 area. Discussed results with patient in the office. He may benefit from course of PT or possibly Pain Management referral for possible therapeutic injections. He is interested in these options and has a visit with PCP Clarence Dos Santos next Sunday and will discuss then. Patient inquired about Oxycodone as his takes this. We discussed risks and side effects associated with opioid medication and I advised against it at this time. I am going to send him tylenol arthritis and he can continue to using Voltaren gel on lower back. We also reviewed use of ice and gentle stretching. He will f/u with PCP as scheduled next week for further discussion of referral options. Orders: Orders XR lumbar spine 2-3V Today M54.50 - Low back pain, unspecified Medications: New acetaminophen ER (Tylenol Arthritis Pain) 650 mg PO Q12H PRN 30 tabs 1RF pain M54.50 - Low back pain, unspecified Coding Level of Care Code Est Pt Level 4 (85418) Diagnoses Lumbar back pain M54.50
[2024-05-13 10:15] VITALS: BP 120/68; PULSE 91; O2SAT 98
== END 2024-05-13 11:15 | disposition home or self-care (01) ==
PROVIDERS: PCP Nurse Practitioner Family; Visit Provider Nurse Practitioner Family
DX: M54.50 Low back pain, unspecified (principal)
CPT/HCPCS: 99214

== ENCOUNTER 2024-05-13 10:33 | Outpatient (REF) | payer MEDICARE, SELFPAY ==
--- NOTE | ~2024-05-13 | XR_ITS ---
EXAMINATION: XR LUMBOSACRAL SPINE CLINICAL INFORMATION: Low back pain COMPARISON: None available. TECHNIQUE: Three views of the lumbosacral spine. FINDINGS: Lumbar lordotic straightening. Levoscoliosis. Mild vertebral body height losses, most pronounced superior aspect of L5. Multilevel spurring and disc space narrowings, most pronounced L5-S1. Pedicles and SI joints within normal limits. Phleboliths. Fecal retention. XR/XR lumbar spine 2-3V IMPRESSION: Scoliosis, lordotic straightening, multilevel degenerative changes and compression deformities.
== END 2024-05-13 10:34 | disposition home or self-care (01) ==
LOC: HO.HMGCX 10:33
PROVIDERS: PCP Nurse Practitioner Family; Visit Provider Nurse Practitioner Family
DX: M54.50 Low back pain, unspecified (principal)
CPT/HCPCS: 72100

== ENCOUNTER 2024-05-19 11:20 | Outpatient (AMB) | payer MEDICARE, SELFPAY ==
[2024-05-19 11:25] VITALS: BP 122/70; PULSE 82; O2SAT 97; BMI 26.1
--- NOTE | 2024-05-19 11:25 | MHC.PC.OV ---
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 Required: No Accompanied by: Self / Same As Patient Allergies Iodinated Contrast Media [IV DYE, IODINE CONTAINING CONTRAST ] Allergy (Mild, Verified 05/19/24 11:33) HIVES Medication List - Last Reconciled 05/19/24 by EFREM Zepeda- acetaminophen ER (Tylenol Arthritis Pain) 650 mg PO Q12H PRN aspirin 81 mg PO DAILY brimonidine 0.15% drps ophthalmic (eye) latanoprost 0.005% 1 drp ophthalmic (eye) BEDTIME lisinopril 10 mg PO DAILY metformin 500 mg PO BID 90 days sildenafil 100 mg PO DAILY PRN 10 days simvastatin 40 mg PO BEDTIME timolol maleate 0.5% 1 drp ophthalmic (eye) BID Tobacco use date assessed: 10/22/23 Dental Screening Dental Screen Date: 02/18/24 HPI follow up HPI Details Pt is a diabetic, on an CRAIG and a statin. A1C in office today is 6.3. Microalbumin is up to date. Denies polyuria, polydipsia, and neuropathy. Pt denies any signs and symptoms of hypoglycemia and does know how to correct it. Pt was seen in the walk-in on 05/13 c/o lower back pain. He had an XR which showed scoliosis, lordotic straightening, multilevel degenerative changes and compression deformities. He was sent acetaminophen ER which he reports is helping. Pt is also using voltaren which is helping. Denies any signs of cauda equina. 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 [facility] Medical History CKD (chronic kidney disease) stage 3, GFR 30-59 ml/min Tinea unguium Internal hemorrhoids Diverticulitis Glaucoma Arthritis Enlarged prostate HTN (hypertension) [place] disease Actinic keratosis Tubular adenoma Dyslipidemia Diabetes Surgical History History of removal of neck cyst History of colonoscopy History of cystoscopy History of umbilical hernia repair History of cataract surgery Family History Father Lung cancer Smoker Mother History of CVA (cerebrovascular accident) Dementia Stroke Son No problems noted. Daughter No problems noted. 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 1. Little interest or pleasure in doing things: not at all 2. Feeling down, depressed, or hopeless: not at all 3. Trouble falling or staying asleep, or sleeping too much: not at all 4. Feeling tired or having little energy: not at all 5. Poor appetite or overeating: not at all 6. Feeling bad about yourself - or that you are a failure or have let yourself or your family down: not at all 7. Trouble concentrating on things, such as reading the newspaper or watching television: not at all 8. Moving or speaking so slowly that other people could have noticed. Or the opposite - being so fidgety or restless that you have been moving around a lot more than usual: not at all 9. Thoughts that you would be better off or of hurting yourself in some way: not at all Total score: 0 Source: Developed by Drs. Romulo Engle, Michelle Funk, Ramesh White and colleagues, with an educational keyonna from [employer]. Thrive Questionnaire Date Thrive assessed: 05/19/24 I am a: Patient What is your living situation today?: I have a steady place to live Within the past 12 months, did the food you bought not last and you didn't have the money to get more?: Never true Within the past 12 months, did you worry whether your food would run out before you got money to buy more?: Never true Do you have trouble paying for medicines?: No Do you have trouble getting transportation to medical appointments?: No Do you have trouble paying your heating and electricity bill?: No Do you have trouble taking care of your child, family member or friend?: No Do you have trouble with day-to-day activities such as bathing, preparing meals, shopping, managing finances, etc.?: No Are you currently unemployed and looking for a job?: No Are you interested in more education?: No THRIVE Score: 0 EMILY-7 AMB Questionnaire EMILY-7 Date EMILY - 7 assessed: 10/22/23 Source: Developed by Drs. Romulo Engle, Michelle Funk, Ramesh White and colleagues, with an educational keyonna from [employer]. Review of Systems Const Reports as per HPI Physical exam (Primary Care) Vital Signs: Last Vital Signs Pulse 82 05/19/24 11:25 BP 122/70 05/19/24 11:25 Pulse Ox 97 05/19/24 11:25 Oxygen Delivery Method Room Air 05/19/24 11:25 BMI result Body Mass Index 26.1 Tobacco/Smoking Status: Tobacco use Status Tobacco use date assessed 10/22/23 05/19/24 11:26 Patient Tobacco Use Status Former Tobacco user 05/19/24 11:26 e-Cigarette/Vaping Use Never Used 05/19/24 11:26 PHQ-9: PHQ-9 Score PHQ-9: Total score 0 05/19/24 11:39 Thrive Assessment: Date of Thrive Assessment Date Thrive assessed 05/19/24 05/19/24 11:26 Const General: cooperative Orientation/consciousness: patient oriented x3 Resp Effort & Inspection: normal respiratory effort Auscultation: clear to auscultation bilaterally Cardio Rate: regular rate Rhythm: regular rhythm Heart sounds: S1 normal heart sound present and S2 normal heart sound present Neuro General: patient oriented x3 Extrem Other: refused foot exam Psych Appearance: grossly normal Mental Status: mental status grossly normal Speech and movement: Normal speech and movement present Affect: normal affect Attitude: cooperative Thought process: Normal thought process present Thought content: Normal thought content present Insight: Good insight present (Psych) Judgement: Good judgement present (Psych) Assessment and Plan Assessment & Plan (1) Diabetes: Code(s): E11.9 - Type 2 diabetes mellitus without complications Plan: controlled (2) Screening PSA (prostate specific antigen): Code(s): Z12.5 - Encounter for screening for malignant neoplasm of prostate Plan: lab ordered (3) Lower back pain: Code(s): M54.50 - Low back pain, unspecified Plan: stretching, heat, motion is lotion Plan The patient agreed to the use of a medical office assistant for this encounter. Scribed for EFREM Kimbrough-PHILOMENA by Yuni Reyes medical office assistant, on 05/19/2024 at 11:40 EST. Orders: Orders Prostate Specific Antigen Scr Today Z12.5 - Encounter for screening for malignant neoplasm of prostate Complete Blood Count Auto Diff Today E11.9 - Type 2 diabetes mellitus without complications Comprehensive Colt. Panel Fast Today E11.9 - Type 2 diabetes mellitus without complications TSH reflex Free T4 Today E11.9 - Type 2 diabetes mellitus without complications UA CC w/rflx Micro + Cult Today E11.9 - Type 2 diabetes mellitus without complications Lipid Panel Today E11.9 - Type 2 diabetes mellitus without complications Microalbumin, Random (w Creat) Today E11.9 - Type 2 diabetes mellitus without complications Medications: Refilled acetaminophen ER (Tylenol Arthritis Pain) 650 mg PO Q12H PRN 30 tabs 1RF pain M54.50 - Low back pain, unspecified Coding Level of Care Code Est Pt Level 3 (55269) Diagnoses Diabetes E11.9 Screening PSA (prostate specific antigen) Z12.5 Lower back pain M54.50
== END 2024-05-19 12:45 | disposition home or self-care (01) ==
PROVIDERS: PCP Nurse Practitioner Family; Visit Provider Nurse Practitioner Family
DX: E11.9 Type 2 diabetes mellitus without complications (principal); Z12.5 Encounter for screening for malignant neoplasm of prostate; M54.50 Low back pain, unspecified
CPT/HCPCS: 83036; 99213

== ENCOUNTER 2024-08-01 09:11 | Outpatient (AMB) | payer MEDICARE, SELFPAY ==
[2024-08-01 09:14] VITALS: BP 124/80; PULSE 69; O2SAT 96; BMI 26.5
--- NOTE | 2024-08-01 09:14 | MHC.PC.OV ---
Vital Signs 08/01/24 09:14 Height 5 ft 5 in Weight 159 lb BMI 26.5 BP 124/80 Blood Pressure Location Lt brachial Position Sitting Pulse 69 Pulse Source Pulse Oximeter Pulse Oximetry (%) 96 Oxygen Delivery Method Room Air Intake Visit Reasons: PE Intake Note: Pt is here today for his PE Allergies Iodinated Contrast Media [IV DYE, IODINE CONTAINING CONTRAST ] Allergy (Mild, Verified 08/01/24 09:15) HIVES Medication List - Last Reconciled 08/01/24 by Julia Wilkinson NP acetaminophen ER (Tylenol Arthritis Pain) 650 mg PO Q12H PRN aspirin 81 mg PO DAILY brimonidine 0.15% drps ophthalmic (eye) latanoprost 0.005% 1 drp ophthalmic (eye) BEDTIME lisinopril 10 mg PO DAILY metformin 500 mg PO BID 90 days sildenafil 100 mg PO DAILY PRN simvastatin 40 mg PO BEDTIME timolol maleate 0.5% 1 drp ophthalmic (eye) BID Tobacco use date assessed: 08/01/24 Fall risk assessment: No Falls in past year Last assessed Fall Risk: 08/01/24 Dental Screening Dental Screen Date: 08/01/24 Did you have a dental visit in the last 12 months?: Yes Did you have a dental problem in the last 6 months where you did not have access to dental care?: No Was dental information given to patient?: Patient has dentist HPI HPI Comments History of Present Illness Details 79 y/o male patient who presents to the clinic for PE. He is a patient of [facility]. Pmhx: HTN, T2DM, and Dyslipidemia. He is compliant with his medications. [facility] Medical History CKD (chronic kidney disease) stage 3, GFR 30-59 ml/min Tinea unguium Internal hemorrhoids Diverticulitis Glaucoma Arthritis Enlarged prostate HTN (hypertension) Lincoln disease Actinic keratosis Tubular adenoma Dyslipidemia Diabetes Surgical History History of removal of neck cyst History of colonoscopy History of cystoscopy History of umbilical hernia repair History of cataract surgery Family History Father Lung cancer Smoker Mother History of CVA (cerebrovascular accident) Dementia Stroke Son No problems noted. Daughter No problems noted. 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 Cognitive needs: No Hearing needs: No Vision needs: Yes Questionnaire Thrive Questionnaire Date Thrive assessed: 05/19/24 I am a: Patient What is your living situation today?: I have a steady place to live Within the past 12 months, did the food you bought not last and you didn't have the money to get more?: Never true Within the past 12 months, did you worry whether your food would run out before you got money to buy more?: Never true Do you have trouble paying for medicines?: No Do you have trouble getting transportation to medical appointments?: No Do you have trouble paying your heating and electricity bill?: No Do you have trouble taking care of your child, family member or friend?: No Do you have trouble with day-to-day activities such as bathing, preparing meals, shopping, managing finances, etc.?: No Are you currently unemployed and looking for a job?: No Are you interested in more education?: No Please select the resources that you would like help with: None THRIVE Score: 0 EMILY-7 AMB Questionnaire EMILY-7 Date EMILY - 7 assessed: 10/22/23 Source: Developed by Drs. Romulo Engle, Michelle Funk, Ramesh White and colleagues, with an educational keyonna from [employer] Review of Systems Const All systems reviewed & are unremarkable except as noted in HPI and below Physical exam (Primary Care) Vital Signs: Last Vital Signs Pulse 69 08/01/24 09:14 BP 124/80 08/01/24 09:14 Pulse Ox 96 08/01/24 09:14 Oxygen Delivery Method Room Air 08/01/24 09:14 BMI result Body Mass Index 26.5 Tobacco/Smoking Status: Tobacco use Status Tobacco use date assessed 08/01/24 08/01/24 09:18 Patient Tobacco Use Status Former Tobacco user 08/01/24 09:18 e-Cigarette/Vaping Use Never Used 08/01/24 09:18 Thrive Assessment: Date of Thrive Assessment Date Thrive assessed 05/19/24 08/01/24 09:18 Const General: cooperative, comfortable and no acute distress Orientation/consciousness: patient oriented x3 HENMT Head: Yes normocephalic Ears: external ears normal and TM's normal bilaterally General nose exam: Normal external nose present and Normal nasal mucous membranes and turbinates present Face and sinus: Yes sinuses nontender Mouth: moist mucous membranes Throat: Yes tonsils normal and Yes uvula midline Eyes Pupils: Equal, round and reactive pupils present EOM: EOMs intact bilaterally Neck Neck: Yes full ROM and Yes no lymphadenopathy Thyroid: Thyroid normal Resp Effort & Inspection: normal respiratory effort and able to speak in complete sentences Auscultation: clear to auscultation bilaterally, no crackles, no rales, no rhonchi and no wheezes Cardio Heart sounds: S1 normal heart sound present and S2 normal heart sound present GI Inspection: Yes obesity Palpation (GI): Soft to palpation, not firm, nontender, no guarding, not rigid and No hepatosplenomegaly present Auscultation: normal bowel sounds General: Yes no CVA tenderness Back/Spine/Pelvis Back: no CVA tenderness Cervical Spine: cervical ROM normal Thoracic/Lumbar Spine: thoraco-lumbar ROM normal Skin General skin exam: no rashes or lesions noted Neuro General: patient oriented x3, gait normal and moves all extremities Cranial nerves: Yes Equal, round and reactive pupils present Motor exam (neuro): 5/5 motor strength present throughout Psych Speech and movement: Normal speech and movement present Results AMB Hemoglobin A1c AMB Hemoglobin A1c 5.8 % Last Edit by Maliha Wilson CMA on 08/01/24 09:32 Results Reviewed Results Reviewed: Laboratory Last Values Hgb A1c (Clinic) 5.8 % (4.0-6.0) 08/01/24 09:31 Coding Level of Care Code Est Pt Prev Care >65y(75225) Diagnoses Type 2 diabetes mellitus without complication, without long-term current use of insulin E11.9 Diabetes mellitus complication status: without complication Diabetes mellitus skilled nursing insulin use: without intermediate accountant use Diabetes mellitus type: type 2 Primary hypertension I10 Hypertension type: primary hypertension Encounter for routine adult health examination without abnormal findings Z00.00 Time Spent (min) 30 Assessment & Plan Assessment & Plan (1) Diabetes: Code(s): E11.9 - Type 2 diabetes mellitus without complications Category: Medical Qualifiers: Diabetes mellitus complication status: without complication Diabetes mellitus skilled nursing insulin use: without skilled nursing use Diabetes mellitus type: type 2 Qualified Code(s): E11.9 - Type 2 diabetes mellitus without complications Plan: Continue on current regiment. Current A1C 5.8% (2) HTN (hypertension): Code(s): I10 - Essential (primary) hypertension Category: Medical Qualifiers: Hypertension type: primary hypertension Qualified Code(s): I10 - Essential (primary) hypertension Plan: Continue on current regiment (3) Encounter for routine adult health examination without abnormal findings: Code(s): Z00.00 - Encounter for general adult medical examination without abnormal findings Plan: Exam WNL Orders: Orders AMB Hemoglobin A1c Today E11.9 - Type 2 diabetes mellitus without complications
== END 2024-08-01 10:23 | disposition home or self-care (01) ==
LOC: HO.HMCC 09:12
PROVIDERS: PCP Nurse Practitioner Family; Visit Provider Nurse Practitioner Family
DX: E11.9 Type 2 diabetes mellitus without complications (principal); I10 Essential (primary) hypertension; Z00.00 Encounter for general adult medical examination without abnormal findings

== ENCOUNTER → 2024-08-01 09:11 | Outpatient (BNVA) | payer MEDICARE, SELFPAY | PROVIDERS: PCP Nurse Practitioner Family; Visit Provider Nurse Practitioner Family | DX: Z00.01 Encounter for general adult medical examination with abnormal findings (principal); E11.9 Type 2 diabetes mellitus without complications; I10 Essential (primary) hypertension | CPT/HCPCS: 83036; 99397 ==

== ENCOUNTER 2024-08-02 07:19 | Outpatient (REF) | payer MEDICARE, SELFPAY ==
[2024-08-02 11:16] LABS: Appearance Urine Clear; Color Urine Yellow; Glucose Urine UA Negative (Negative); Leukocyte Esterase Urine Negative (Negative); MANUAL DIFF FLAG NO; Nitrite Urine Negative (Negative); PH 6.5 (5.0-9.0); Urine Blood Negative (Negative); Urine Ketones Negative (Negative); Urine Protein Negative (Neg-Trace)
[2024-08-02 11:21] LABS: Basophils Absolute Auto 0.1 X10*3/uL (0.0-0.2); Basophils Percent Auto 0.8 % (0-2); Eosinophils Absolute Auto 0.1 X10*3/uL (0.0-0.4); Hematocrit 39.1 % (42.0-52.0); Hemoglobin 13.2 g/dl (14.0-18.0); Imm Gran Abs Auto 0.03 X10*3/uL (0.00-0.03); Imm Gran Pct Auto 0.4 % (0.0-0.4); Lymphocytes Absolute Auto 1.5 X10*3/uL (1.2-4.9); Lymphocytes Percent Auto 20.7 % (20-40); Mean Corpuscular HGB Conc 33.8 g/dl (31.0-36.0); Mean Corpuscular Hemoglobin 31.9 pg (27.0-33.0); Mean Corpuscular Volume 94.4 fL (80.0-98.0); Mean Platelet Volume 9.6 fL (9.4-12.4); Monocytes Absolute Auto 0.7 X10*3/uL (0.1-1.2); Monocytes Percent Auto 10.4 % (2-11); Neutrophils Absolute Auto 4.7 x10*3/uL (2.0-8.3); Neutrophils Percent Auto 65.7 % (45-73); Platelet Count 207 X10*3/uL (160-400); Red Blood Count 4.14 X10*6/uL (4.60-5.80); Red Cell Distribution Width 12.8 % (11.0-16.0); White Blood Count 7.1 X10*3/uL (4.8-10.8)
[2024-08-02 11:44] LABS: Microalbum/Creatinine Ratio Ur 8.6 ug/mg cr (<30)
[2024-08-02 11:48] LABS: Alanine Aminotransferase 21 U/L (0-40); Alkaline Phosphatase 84 U/L (39-117); Anion Gap 12 (12-20); Aspartate Amino Transferase 23 U/L (5-37); Bilirubin Total 1.6 mg/dL (0.0-1.0); Blood Urea Nitrogen 26 mg/dL (9-16); Calcium 9.8 mg/dL (8.4-10.2); Carbon Dioxide 25 mmol/L (22-29); Chloride 106 mmol/L (96-108); Cholesterol 141 mg/dL (<200); Estimated Glomerular Filt Rate > 60; Glucose Fasting 140 mg/dL (60-99); HDL Cholesterol 53 mg/dL (>40); LDL Cholesterol Calculated 68 mg/dL (<100); Potassium 4.4 mmol/L (3.3-5.1); Sodium 139 mmol/L (135-145); Total Protein 7.3 g/dL (6.5-8.0); Triglycerides 104 mg/dL (<150)
[2024-08-02 12:01] LABS: Prostate Specific Antigen Scr 3.62 ng/mL (<0.05-4.0)
[2024-08-02 12:07] LABS: TSH reflex Free T4 3.12 uIU/mL (0.32-4.0)
== END 2024-08-02 07:20 | disposition home or self-care (01) ==
LOC: HO.HMGCLDS 07:19
PROVIDERS: PCP Nurse Practitioner Family; Visit Provider Nurse Practitioner Family
DX: E11.9 Type 2 diabetes mellitus without complications (principal); Z12.5 Encounter for screening for malignant neoplasm of prostate
CPT/HCPCS: 36415; 80053; 80061; 81003; 82043; 82570; 84153; 84443; 85025

== ENCOUNTER 2024-08-04 09:43 | Outpatient (REF) | payer MEDICARE, SELFPAY ==
--- NOTE | 2024-08-04 14:58 | MHC.AU.HA3 ---
Hearing Instrument Follow-Up- Binaural Date of Visit: 08/04/24 Follow-Up Summary: Jacob is here for evaluation with his daughter, who states she called ahead to request the aids that her son donated be held for Jacob's use, if appropriate. A pair of Oticon Opn 3 BTEs were located. Discussed that these are older devices and stronger than necessary but they would like to start with them rather than purchase new aids. Need to order slim tube adapter prior to programming, patient scheduled appt for 2 weeks to return for full HAF appt. Quoted $90 for REM. Diagnosis Code(s): Primary Diagnosis: H90.3 Bilateral Sensorineural Hearing Loss Signature: Provider: Indigo Meeks, CCC-A
== END 2024-08-04 09:44 | disposition home or self-care (01) ==
LOC: HO.SH 09:43
PROVIDERS: Visit Provider Nurse Practitioner Family
DX: Z01.118 Encounter for examination of ears and hearing with other abnormal findings (principal); H90.3 Sensorineural hearing loss, bilateral
CPT/HCPCS: 92557

== ENCOUNTER 2024-08-18 07:55 | Outpatient (REF) | payer SELFPAY | END 2024-08-18 07:56 | disposition home or self-care (01) | LOC: HO.HAP 07:55 | PROVIDERS: Visit Provider Nurse Practitioner Family | DX: Z46.1 Encounter for fitting and adjustment of hearing aid (principal); H90.3 Sensorineural hearing loss, bilateral | CPT/HCPCS: V5020 ==

== ENCOUNTER 2024-09-09 07:55 | Outpatient (REF) | payer SELFPAY ==
--- OUTSIDE RECORDS SUMMARY | 2024-09-10 18:39 | XMS_ITS ---
Author Organization [facility] Address [address] [place] [address] Care Team Providers Care Senior Actuarial Analyst Name Role Phone Clarence Costa Primary Care Provider Unav ailable Judit Brown Unavailable [phone] Allergies Allergen (clinical drug ingredient) Drug/Non Drug Allergy documented on EMR Reaction Allergy Type Onset Date Status Iodine hives Drug Allergy Active REASON FOR VISIT PCP: 11/2023, At Risk Footcare, Toe Irritation Medications Medication SIG (Take, Route, Frequency, Duration) Notes Start Date End Date Status Simvastatin 40 MG 1 tablet in the even ing Orally Once a day for 30 day(s) Active Lisinopril 2.5 MG 1 tablet Orally Once a day for 30 day(s) Active Extra Depth Orthopedic Shoes (1 Pair) with Customized Heat Molded Multidensity Innersoles (3 Pair) as directed Dx: NIDDM/Polyneuropathy (E11.42), Hammertoe Foot Deformity (M20.41,M20.42), Preulcerative Skin Lesion(s) (L85.1 06/27/2022 Active Vitamin B12 Active Timolol Maleate 0.5 % 1 drop into affect ed eye Ophthalmic Once a day Active metFORMIN HCl 500 MG 1 tablet with a elsie l Orally twice a day Active Brimonidine Tartrate 0.15 % 1 drop into affected eye Ophthalmic every 8 hrs Active Baby Aspirin 81 Acti ve Cyanocobalamin 1000 MCG 1 tablet Orally Once a day for 30 day(s) Not-Taking Latanoprost 0.005 % 1 drop into affected eye in the evening Ophthalmic Once a day Active Aspirin 81 MG 1 tablet Orally Once a day for 30 day(s) Not-Taking Extra Depth Orthopedic Shoes (1 Pair) with Customized Heat Molded Multidensity Innersoles (3 Pair) as directed Dx: NIDDM/Polyneuropathy (E11.42), Hammertoe Foot Deformity (M20.41,M20.42), Preulcerative Skin Lesion(s) (L85.1 Not-Taking Extra Depth Orthopedic Shoes (1 Pair) with Customized Heat Molded Multidensity Innersoles (3 Pair) as directed Dx: NIDDM/Polyneuropathy (E11.42), Hammertoe Foot Deformity (M20.41,M20.42), Preulcerative Skin Lesion(s) (L85.1 06/10/2019 Not-Taking Cephalexin 500 MG 1 capsule Orally laura ry 12 hrs for 5 day(s) Not-Taking Finasteride 5 MG 1 tablet Orally Once a day for 30 day(s) Not-Taking Extra Depth Orthopedic Shoes (1 Pair) with Customized Heat Molded Multidensity Innersoles (3 Pair) as directed Dx: NIDDM/Polyneuropathy (E11.42), Hammertoe Foot Deformity (M20.41,M20.42), Preulcerative Skin Lesion(s) (L85.1 Active Social History Tobacco Use: Social History Observation Description Date Details (start date - stop date) Former Smoker NA - NA Tobacco Use/Smoking Question Answer Notes Are you a: former smoker Alcohol Screen Question Answer Notes Did you have a drink contain ing alcohol in the past year? Yes How often did you have a dri nk containing alcohol in the past year? 2 to 3 times a week (3 points) Points 3 Interpretation Negative Tobacco use other than smoking: Question Answer Notes Are you an other tobacco user? No Vital Signs Height 5ft 5in in 02/01/2024 Weight 165 lbs 02/01/2024 BMI 27.45 kg/m2 02/01/2024 Blood pressure systolic 120 mm Hg 02/01/20 24 Blood pressure diastolic 70 mm Hg 024 Encounters Encounter Location Date Provider Diagnosis [facility] [address] [place] [address] 02/01/2024 Judit Brown Type 2 diabetes mellitus with diabetic polyneuropathy E11.42 ; Other hammer toe(s) (acquired), right foot M20.41 ; Tinea unguium B35.1 and Other hammer toe(s) (acquired), left foot M20.42 Assessments Encounter Date Diagnosis (ICD Code) Assessment Notes Treatment Notes Treatment Clinical Notes Section Notes 02/01/2024 Type 2 diabetes mellitus with diabetic polyneuropathy (ICD-10 - E11.42) 02/01/2024 Other hammer toe(s) (acquired), right foot (ICD-10 - M20.41) 02/01/2024 Tinea unguium (ICD-10 - B35.1) 02/01/2024 Other hammer toe(s) (acquired), left foot (ICD-10 - M20.42) Plan Of Treatment Next Appt Details Follow Up: 3 Months, Reason: Provider Name:Judit baumann, 11/07/2024 09:00:00 AM, [address] [place] [address], [phone], Procedure Notes * Category Sub-Category Detail Notes Debride Nail 6-10 Nail debridement Nail debridem ent performed extensively to reduce/remove overall nail length and girth, subungual debris, and necrotic tissue, by manual and electrical means with use of a nail nipper and/or dremel, to more viable healthy nail plate or bed tissue 6-10. Silver nitrate used for any petechial bleeding as necessary. Patient chooses, no pharmaceutical tx (85141) Keratoma Treatment Parring or Cutting o f Benign Hyperkeratotic Lesion(s) 54361 (2-4 Lesions) - The Benign hyperkeratotic lesions, as described above were pared, and/or cut utilizing a sterile #15 blade, tissue nippers, and/or dremel Progress Notes * Jacob SNOWDOB:1945 ( 78 yo M)Acc No.[id number]:02/01/2024 Progress Note Patient:?Jacob Snow Provider:?Judit Brown DPM :1945???Age:78 Y???Sex:Male Robin e:02/01/2024 Address:[address] [place] [address] [id number] Pcp:WM Kimbrough Subjective: * Chief Complaints: * ??? PCP: t Risk Foot careToe Irritation * HPI: ???At Risk footcare:?Pt States Last PCP Visit:?Date?11/22/2023 ???Toe pain:?Location:?B/L feet.?Duration:?several years.?Aggrevated by:?shoes, any pressure.?Treatments:?Rx shoes.? * ROS:?General/Constitutional:?Nausea?denies, denies, denies, denies, denies, denies.?Vomiting?denies, denies, denies, denies, denies, denies.?Hunger Thirst?denies, denies, denies, denies, denies, denies.?Loss appetite?denies, denies, denies, denies, denies, denies.?Chills?denies, denies, denies, denies, denies, denies.?Fatigue?denies, denies, denies, denies, denies, denies.?Fever?denies, denies, denies, denies, denies, denies.?Night Sweats?denies, denies, denies, denies, denies, denies.?Unexplained weight loss?denies, denies, denies, denies, denies, denies.?Unexplained weight gain?denies, denies, denies, denies, denies, denies.?HEENTM:?Dentures?denies, denies, denies, denies, denies, denies.?Dizziness?denies, denies, denies, denies, denies, denies.?Glasses/contacts?admits, admits, admits, admits, admits, admits.?Retinopathy?denies, denies, denies, denies, denies, denies.?Blurred/double vision?denies, denies, denies, denies, denies, denies.?TMJ?denies, denies, denies, denies, denies, denies.?Discharge/drainage?denies, denies, denies, denies, denies, denies.?Implants?denies, denies, denies, denies, denies, denies.?Sore throat?denies, denies, denies, denies, denies, denies.?Dental implants?denies, denies, denies, denies, denies, denies.?Hard of hearing ?denies, denies, denies, denies, denies, denies.?Difficulty chewing/swallowing/speaking?denies, denies, denies, denies, denies, denies.?Nose bleeds?denies, denies, denies, denies, denies, denies.?Sore mouth?denies, denies, denies, denies, denies, denies.?Respiratory:?On Oxygen?denies, denies, denies, denies, denies, denies.?Pneumonia/pleurisy?denies, denies, denies, denies, denies, denies.?Bronchitis?denies, denies, denies, denies, denies, denies.?Emphysema?denies, denies, denies, denies, denies, denies.?Coughing?denies, denies, denies, denies, denies, denies.?Cough blood?denies, denies, denies, denies, denies, denies.?Shortness of breath?denies, denies, denies, denies, denies, denies.?Wheezing?denies, denies, denies, denies, denies, denies.?Cardiovascular:?Pacemaker?denies, denies, denies, denies, denies, denies.?MVP?denies, denies, denies, denies, denies, denies.?WPW?denies, denies, denies, denies, denies, denies.?CHF?denies, denies, denies, denies, denies, denies.?Heart attack?denies, denies, denies, denies, denies, denies.?Septal defect?denies, denies, denies, denies, denies, denies.?Rapid beat?denies, denies, denies, denies, denies, denies. Chest pain ?denies, denies, denies, denies, denies, denies.?Atrial Fib.?denies, denies, denies, denies, denies, denies.?Murmur/Palpitations?denies, denies, denies, denies, denies, denies.?Gastrointestinal:?Hemorrhoids?denies, denies, denies, denies, denies, denies.?Stomach/Abdominal pain?denies, denies, denies, denies, denies, denies.?Dark blood stool?denies, denies, denies, denies, denies, denies.?Irritable bowel ?denies, denies, denies, denies, denies, denies.?Constipation?denies, denies, denies, denies, denies, denies.?Diarrhea?denies, denies, denies, denies, denies, denies.?Hematology:?Swelling?denies, denies, denies, denies, denies, denies.?Clots?denies, denies, denies, denies, denies, denies.?Varicose Veins?denies, denies, denies, denies, denies, denies.?Bruising?denies, denies, denies, denies, denies, denies.?Bleeding problem?denies, denies, denies, denies, denies, denies.?Genitourinary:?Blood urine?denies, denies, denies, denies, denies, denies.?Frequent/Painfu/urination/bladder control?denies, denies, denies, denies, denies, denies.?Kidney stones?denies, denies, denies, denies, denies, denies.?Infection (UTI)?denies, denies, denies, denies, denies, denies.?Nephropathy?denies, denies, denies, denies, denies, denies.?sex trans dis (STD)?denies, denies, denies, denies, denies, denies.?Prostate?denies, denies, denies, denies, denies, denies.?Musculoskeletal:?Hammertoes?denies, denies, denies, denies, denies, denies.?Bunions?denies, denies, denies, denies, denies, denies.?Back Pain?denies, denies, denies, denies, denies, denies.?Muscle Cramps/ Resting?denies, denies, denies, denies, denies, denies.?Muscle cramps / walking?denies, denies, denies, denies, denies, denies.?Generalized aches and pains?denies, denies, denies, denies, denies, denies.?Weakness?denies, denies, denies, denies, denies, denies.?Integ.:?Mancera?denies, denies, denies, denies, denies, denies.?Scars?denies, denies, denies, denies, denies, denies.?Corns/calluses?denies, denies, denies, denies, denies, denies.?Ingrown nails?denies, denies, denies, denies, denies, denies.?Painful nails?denies, denies, denies, denies, denies, denies.?Open Sores?denies, denies, denies, denies, denies, denies.?Rashes?denies, denies, denies, denies, denies, denies.?Neurologic:?Difficulty sleeping?denies, denies, denies, denies, denies, denies.?Brain disorder?denies, denies, denies, denies, denies, denies.?Numbness?denies, denies, denies, denies, denies, denies.?Balance trouble?denies, denies, denies, denies, denies, denies.?Confusion?denies, denies, denies, denies, denies, denies.?Fainting/blackouts?denies, denies, denies, denies, denies, denies.?Tingling?denies, denies, denies, denies, denies, denies.?Tremors?denies, denies, denies, denies, denies, denies.? * Medical History:? * Surgical History:?cataracts 2012umbilical hernia 1994neck cyst removed 1993cystoscopy fro kidney stone with stent right kidney 2011colonoscopy iopsy of atrophied muscle left hip 2012Carpal tunnel Surgery * Hospitalization/Major Diagno stic Procedure:?Denies Past Hospitalization * Family History:?Mother: dece ased 87 yrs, dementia, cva, stroke.?Father: 82 yrs, lung cancer.?Siblings: heart attack, prostate cancer, cvd, cancer.? * Social History:?Tobacco Use:?Tobacco Use/Smoking?Are you a:?former smoker ?Tobacco use other than smoking?Are you an other tobacco user??No ???Drugs/Alcohol:?Drugs?Have you used drugs other than those for medical reasons in the past 12 months??No ?Alcohol Screen?Did you have a drink containing alcohol in the past year??Yes ?How often did you have a drink containing alcohol in the past year??2 to 3 times a week (3 points) ?Points?3 ?Interpretation?Negative ???Miscellaneous:?Caffeine: yes, 1-2 cups per day Coffee. ?Children: yes, 2. ?Exercise: yes, Golf. ?Marital status: . ?Occupation: Semi-retired- [employer]. * Medications:?TakingBaby Aspi rin 81 mg Brimonidine Tartrate 0.15 % Solution 1 drop into affected eye Ophthalmic every 8 hrsmetFORMIN HCl 500 MG Tablet 1 tablet with a meal Orally twice a dayLatanoprost 0.005 % Solution 1 drop into affected eye in the evening Ophthalmic Once a dayLisinopril 2.5 MG Tablet 1 tablet Orally Once a daySimvastatin 40 MG Tablet 1 tablet in the evening Orally Once a dayTimolol Maleate 0.5 % Solution 1 drop into affected eye Ophthalmic Once a dayVitamin B12 Extra Depth Orthopedic Shoes (1 Pair) with Customized Heat Molded Multidensity Innersoles (3 Pair) as directed Dx: NIDDM/Polyneuropathy (E11.42), Hammertoe Foot Deformity (M20.41,M20.42), Preulcerative Skin Lesion(s) (L85.1Extra Depth Orthopedic Shoes (1 Pair) with Customized Heat Molded Multidensity Innersoles (3 Pair) as directed Dx: NIDDM/Polyneuropathy (E11.42), Hammertoe Foot Deformity (M20.41,M20.42), Preulcerative Skin Lesion(s) (L85.1Taking Baby Aspirin 81 mg Taking Brimonidine Tartrate 0.15 % Solution 1 drop into affected eye Ophthalmic every 8 hrsTaking metFORMIN HCl 500 MG Tablet 1 tablet with a meal Orally twice a dayTaking Latanoprost 0.005 % Solution 1 drop into affected eye in the evening Ophthalmic Once a dayTaking Lisinopril 2.5 MG Tablet 1 tablet Orally Once a dayTaking Simvastatin 40 MG Tablet 1 tablet in the evening Orally Once a dayTaking Timolol Maleate 0.5 % Solution 1 drop into affected eye Ophthalmic Once a dayTaking Vitamin B12 Taking Extra Depth Orthopedic Shoes (1 Pair) with Customized Heat Molded Multidensity Innersoles (3 Pair) as directed Dx: NIDDM/Polyneuropathy (E11.42), Hammertoe Foot Deformity (M20.41,M20.42), Preulcerative Skin Lesion(s) (L85.1Taking Extra Depth Orthopedic Shoes (1 Pair) with Customized Heat Molded Multidensity Innersoles (3 Pair) as directed Dx: NIDDM/Polyneuropathy (E11.42), Hammertoe Foot Deformity (M20.41,M20.42), Preulcerative Skin Lesion(s) (L85.1Not-Taking/PRNCephalexin 500 MG Capsule 1 capsule Orally every 12 hrsExtra Depth Orthopedic Shoes (1 Pair) with Customized Heat Molded Multidensity Innersoles (3 Pair) as directed Dx: NIDDM/Polyneuropathy (E11.42), Hammertoe Foot Deformity (M20.41,M20.42), Preulcerative Skin Lesion(s) (L85.1Extra Depth Orthopedic Shoes (1 Pair) with Customized Heat Molded Multidensity Innersoles (3 Pair) as directed Dx: NIDDM/Polyneuropathy (E11.42), Hammertoe Foot Deformity (M20.41,M20.42), Preulcerative Skin Lesion(s) (L85.1Aspirin 81 MG Tablet Delayed Release 1 tablet Orally Once a dayFinasteride 5 MG Tablet 1 tablet Orally Once a dayCyanocobalamin 1000 MCG Tablet 1 tablet Orally Once a dayMedication List reviewed and reconciled with the patientNot-Taking/PRN Cephalexin 500 MG Capsule 1 capsule Orally every 12 hrsNot-Taking/PRN Extra Depth Orthopedic Shoes (1 Pair) with Customized Heat Molded Multidensity Innersoles (3 Pair) as directed Dx: NIDDM/Polyneuropathy (E11.42), Hammertoe Foot Deformity (M20.41,M20.42), Preulcerative Skin Lesion(s) (L85.1Not-Taking/PRN Extra Depth Orthopedic Shoes (1 Pair) with Customized Heat Molded Multidensity Innersoles (3 Pair) as directed Dx: NIDDM/Polyneuropathy (E11.42), Hammertoe Foot Deformity (M20.41,M20.42), Preulcerative Skin Lesion(s) (L85.1Not-Taking/PRN Aspirin 81 MG Tablet Delayed Release 1 tablet Orally Once a dayNot-Taking/PRN Finasteride 5 MG Tablet 1 tablet Orally Once a dayNot-Taking/PRN Cyanocobalamin 1000 MCG Tablet 1 tablet Orally Once a dayMedication List reviewed and reconciled with the patient * Allergies:?Iodine: hivesyes[ Allergies Verified] Objective: * Vitals:?Ht: 5ft 5in, Wt:165, BMI:27.45, Shoe size:9.5, BP:120/70 mm Hg, BS:not taken. * ???Past Orders: ???Lab:HEMOGLOBIN A1C (GLYCO HEMOGLOBIN) (Order Date - 02/01/2024) (Collection Date - 11/01/2023) ? Value Reference Range ?HEMOGLOBIN A1C % (HH) 7.1 * Examination: ???Ophthalmology Referral: ?DIABETES EYE EXAM?Neurological: ?SENSORY:? Neurological exam demonstrates, reduced light touch sensation, reduced sharp/dull discrimination, reduced vibration sensation .?Nails: ?NAILS are:?Elongated, overgrown, dystrophic, lytic, greater than 3mm thick, discolored and friable with crumbly malodorous subungual debris, with dull to no pain on palpation due to neuropathy,1-5 B/L.?Dermatologic: ?SKIN FINDINGS:? Skin exam reveals Keratotic lesion(s) located at, , Medial plantar, TA, T5.?Orthopedic: ?DIGITAL DEFORMITIES:?Digital contracture, PIPJ, 2-5 B/L, incompl-reducible to push-up test, no over, nor underlapping, with evidence of shoe producing skin irritation.?FOOTWEAR:? good condition, exhibit proper fit and accommodation for pedal deformities. OT were inspected and noted to be worn, but in good condition giving proper support at the present time.?General Examination: ?FOOT EXAM:?Footwear Evaluation? Assessment: * Assessment: 1.?Other hammer toe(s) (acqu ired), right foot - M20.41 (Primary)?2.?Type 2 diabetes mellitus with diabetic polyneuropathy - E11.42?3.?Tinea unguium - B35.1?4.?Other hammer toe(s) (acquired), left foot - M20.42? Plan: * Treatment: * Procedures:?Debride Nail 6-10:?Nail debridement?Nail debridement performed extensively to reduce/remove overall nail length and girth, subungual debris, and necrotic tissue, by manual and electrical means with use of a nail nipper and/or dremel, to more viable healthy nail plate or bed tissue 6-10. Silver nitrate used for any petechial bleeding as necessary. Patient chooses, no pharmaceutical tx (02476).?Keratoma Treatment:?Parring or Cutting of Benign Hyperkeratotic Lesion(s)?81778 (2-4 Lesions) - The Benign hyperkeratotic lesions, as described above were pared, and/or cut utilizing a sterile #15 blade, tissue nippers, and/or dremel.? * Procedure Codes:?47712 DEBRI DE NAIL, 6 OR MORE, Modifiers: XS 88595 TRIM SKIN LESIONS, 2 TO 4, Modifiers: XS * Preventive Medicine:? ??Counseling:?Discussion:?-13: Office or other outpatient visit for the evaluation and management of an established patient, which required a medically appropriate history and/or examination and LOW level of DECISION MAKING for: 1 STABLE ACUTE UNCOMPLICATED PROBLEM, 2 OR MORE MINOR PROBLEMS, OR 1 STABLE CHRONIC PROBLEM, THAT POSE(S) A LOW RISK FOR MORBIDITY/MORTALITY. The visit on the day of the encounter encompassed interpreting the data and educating the patient as to the nature of their condition, treatment options available according to their individual PMH, meds, allergies, and overall health/living conditions, as well as any potential risks or complications that may occur from a failure to adhere to, and participate in, the recommended course of therapy. The discussion included a complete verbal, and/or written explanation of the examination results, any x-rays taken, the proposed diagnosis, and outline of the treatment plan. A schedule for future care needs was also explained. The patient verbalized an understanding of the instructions at this time and agreed to be an active participant in their treatment. If the patient should think of any questions or concerns after the visit, I have encouraged the patient to call the office.?Shoe Gear Counseling:?A thorough inspection of the patients Rxed shoegear and inserts was performed and findings communicated. We reviewed the many important medical advantages for adhering to regularly wearing these shoe and insert accomidative devices daily as well as reviewed the fact that a failure in accepting these recommedations may be deleterious, unable to prevent, and disadvantagely result in, many pedal complications such as skin irritation, skin ulceration, infection, and even loss of toe/foot/leg/or even their life. Time was also spent reviewing the proper footcare techniques including daily skin moisturization, daily foot inspection for any interruption in skin integrity, open lesions, or sign of infection such as redness/malodor/drainage/swelling as well as daily shoe inspection for the presence of internal foreign bodies and shoe as well as insert wear. Patient questions re: shoes, inserts, and self foot inspections were answered to their satisfaction as the patient verbally confirmed a full understanding of the above information.? * Follow Up:?3 Months * Images: * Sign off status: Completed true * Provider:?Judit Brown DPM Date:?11/2023 Generated for Kiko suárez/Stefany/Saimaitting on:?09/10/2024 06:39 PM EST History and Physical Notes * HPI (History of Present Illness) Category Sub-Category Detail Notes Category Not es Toe pain Location: B/L feet Duration: several years Aggravated by: shoes, any pressure Treatments: Rx shoes At Risk footcare Pt States Last PCP Visit: Date: 4 Examination Category Sub-Category Detail Notes Category Not es Neurological SENSORY: Neurological exa m demonstrates, reduced light touch sensation, reduced sharp/dull discrimination , reduced vibration sensation Dermatologic SKIN FINDINGS: Skin exam reveal s Keratotic lesion(s) located at, , Medial plantar, TA, T5 Orthopedic FOOTWEAR: good condition, exhibit proper fit and accommodation for pedal deformities. OT were inspected and noted to be worn, but in good condition giving proper support at the present time DIGITAL DEFORMITIES: Digital contracture , PIPJ, 2-5 B/L, incompl-reducible to push-up test, no over, nor underlapping, with evidence of shoe producing skin irritation General Examination FOOT EXAM: Lower Extrem ity Neurological Exam performed:: Yes Footwear Evaluation Footwear Evaluation performe d:: Yes Ophthalmology Referral DIABETES EYE EXAM Diabetic Retinopa thy Screening:: No Findings of Diabetic Eye Exam:: no retin opathy Nails NAILS are: Elongated, overg rown, dystrophic, lytic, greater than 3mm thick, discolored and friable with crumbly malodorous subungual debris, with dull to no pain on palpation due to neuropathy, 1-5 B/L
--- OUTSIDE RECORDS SUMMARY | 2024-09-10 18:39 | XMS_ITS ---
Author Organization [facility] Address [address] [place] [address] Care Team Providers Care Metalizer Name Role Phone Clarence Costa Primary Care Provider Unav ailable Judit Brown Unavailable [phone] Allergies Allergen (clinical drug ingredient) Drug/Non Drug Allergy documented on EMR Reaction Allergy Type Onset Date Status Iodine hives Drug Allergy Active REASON FOR VISIT At Risk Footcare, Toe Irritation Medications Medication SIG (Take, Route, Frequency, Duration) Notes Start Date End Date Status Timolol Maleate 0.5 % 1 drop into affect ed eye Ophthalmic Once a day Active Simvastatin 40 MG 1 tablet in the even ing Orally Once a day for 30 day(s) Active Lisinopril 2.5 MG 1 tablet Orally Once a day for 30 day(s) Active Extra Depth Orthopedic Shoes (1 Pair) with Customized Heat Molded Multidensity Innersoles (3 Pair) as directed Dx: NIDDM/Polyneuropathy (E11.42), Hammertoe Foot Deformity (M20.41,M20.42), Preulcerative Skin Lesion(s) (L85.1 06/27/2022 Active Vitamin B12 Active Latanoprost 0.005 % 1 drop into affected eye in the evening Ophthalmic Once a day Active metFORMIN HCl 500 MG 1 tablet with a elsie l Orally twice a day Active Extra Depth Orthopedic Shoes (1 Pair) with Customized Heat Molded Multidensity Innersoles (3 Pair) as directed Dx: NIDDM/Polyneuropathy (E11.42), Hammertoe Foot Deformity (M20.41,M20.42), Preulcerative Skin Lesion(s) (L85.1 05/09/2024 Active Brimonidine Tartrate 0.15 % 1 drop into affected eye Ophthalmic every 8 hrs Active Baby Aspirin 81 Acti ve Cyanocobalamin 1000 MCG 1 tablet Orally Once a day for 30 day(s) Not-Taking Finasteride 5 MG 1 tablet Orally Once a day for 30 day(s) Not-Taking Aspirin 81 MG 1 tablet Orally Once [...] ry 12 hrs for 5 day(s) Not-Taking Extra Depth Orthopedic Shoes (1 Pair) with Customized Heat Molded Multidensity Innersoles (3 Pair) as directed Dx: NIDDM/Polyneuropathy (E11.42), Hammertoe Foot Deformity (M20.41,M20.42), Preulcerative Skin Lesion(s) (L85.1 Active Social History Tobacco Use: Social History Observation Description Date Details (start date - stop date) Former Smoker NA - NA Tobacco Use/Smoking Question Answer Notes Are you a: former smoker Tobacco use other than smoking: Question Answer Notes Are you an other tobacco user? No Vital Signs Height 5ft 5in in 05/09/2024 Weight 165 lbs 05/09/2024 BMI 27.45 kg/m2 05/09/2024 Blood pressure systolic 120 mm Hg 05/09/20 24 Blood pressure diastolic 70 mm Hg 024 Encounters Encounter Location Date Provider Diagnosis [facility] [address] [address] 05/09/2024 Judit Brown Type 2 diabetes mellitus with diabetic polyneuropathy E11.42 ; Other hammer toe(s) (acquired), right foot M20.41 ; Tinea unguium B35.1 and Other hammer toe(s) (acquired), left foot M20.42 Assessments Encounter Date Diagnosis (ICD Code) Assessment Notes Treatment Notes Treatment Clinical Notes Section Notes 05/09/2024 Type 2 diabetes mellitus with diabetic polyneuropathy (ICD-10 - E11.42) 05/09/2024 Other hammer toe(s) (acquired), right foot (ICD-10 - M20.41) 05/09/2024 Tinea unguium (ICD-10 - B35.1) 05/09/2024 Other hammer toe(s) (acquired), left foot (ICD-10 - M20.42) Plan Of Treatment Medication Medication Name Sig Start Date Stop Date Notes Extra Depth Orthopedic Shoes (1 Pair) with Customized Heat Molded Multidensity Innersoles (3 Pair) as directed Dx: NIDDM/Polyneuropathy (E11.42), Hammertoe Foot Deformity (M20.41,M20.42), Preulcerative Skin Lesion(s) (L85.1 05/09/2024 Next Appt Details Follow Up: 3 Months, Reason: Provider Name:Judit baumann, 11/07/2024 09:00:00 AM, [address] [place] [address], [id number], Procedure Notes * Category Sub-Category Detail Notes [...] as necessary. Patient chooses, no pharmaceutical tx (83268) Keratoma Treatment Parring or Cutting o f Benign Hyperkeratotic Lesion(s) 28344 (2-4 Lesions) - The Benign hyperkeratotic lesions, as described above were pared, and/or cut utilizing a sterile #15 blade, tissue nippers, and/or dremel Progress Notes * Jacob SNOWDOB:1945 ( 79 yo M)Acc No.[id number]:05/09/2024 Progress Note Patient:?Jacob Snow Provider:?Judit Borwn DPM :1945???Age:79 Y???Sex:Male Robin e:05/09/2024 Address:[address] [place], [place] [address]-[id number] Pcp:WM Kimbrough Subjective: * Chief Complaints: * ???At Risk FootcareToe Irrit ation * HPI: ???At Risk footcare:?Pt States Last PCP Visit:?Date?01/30/2024 ???Toe pain:?Location:?B/L feet.?Duration:?several years.?Aggravated by:?shoes, any pressure.?Treatments:?Rx shoes.? * ROS:?General/Constitutional:?Nausea?denies, denies, denies, denies, denies, denies, denies.?Vomiting?denies, denies, denies, denies, denies, denies, denies.?Hunger Thirst?denies, denies, denies, denies, denies, denies, denies.?Loss appetite?denies, denies, denies, denies, denies, denies, denies.?Chills?denies, denies, denies, denies, denies, denies, denies.?Fatigue?denies, denies, denies, denies, denies, denies, denies.?Fever denies, denies, denies, denies, denies, denies, denies.?Night Sweats?denies, denies, denies, denies, denies, denies, denies.?Unexplained weight loss?denies, denies, denies, denies, denies, denies, denies.?Unexplained weight gain?denies, denies, denies, denies, denies, denies, denies.?HEENTM:?Dentures?denies, denies, denies, denies, denies, denies, denies.?Dizziness?denies, denies, denies, denies, denies, denies, denies.?Glasses/contacts?admits, admits, admits, admits, admits, admits, admits.?Retinopathy?denies, denies, denies, denies, denies, denies, denies.?Blurred/double vision?denies, denies, denies, denies, denies, denies, denies.?TMJ?denies, denies, denies, denies, denies, denies, denies.?Discharge/drainage?denies, denies, denies, denies, denies, denies, denies.?Implants?denies, denies, denies, denies, denies, denies, denies.?Sore throat?denies, denies, denies, denies, denies, denies, denies.?Dental implants?denies, denies, denies, denies, denies, denies, denies.?Hard of hearing ?denies, denies, denies, denies, denies, denies, denies.?Difficulty chewing/swallowing/speaking?denies, denies, denies, denies, denies, denies, denies.?Nose bleeds?denies, denies, denies, denies, denies, denies, denies.?Sore mouth?denies, denies, denies, denies, denies, denies, denies.?Respiratory:?On Oxygen?denies, denies, denies, denies, denies, denies, denies.?Pneumonia/pleurisy?denies, denies, denies, denies, denies, denies, denies.?Bronchitis?denies, denies, denies, denies, denies, denies, denies.?Emphysema?denies, denies, denies, denies, denies, denies, denies.?Coughing?denies, denies, denies, denies, denies, denies, denies.?Cough blood?denies, denies, denies, denies, denies, denies, denies. Shortness of breath?denies, denies, denies, denies, denies, denies, denies.?Wheezing?denies, denies, denies, denies, denies, denies, denies.?Cardiovascular:?Pacemaker?denies, denies, denies, denies, denies, denies, denies.?MVP?denies, denies, denies, denies, denies, denies, denies.?WPW?denies, denies, denies, denies, denies, denies, denies.?CHF?denies, denies, denies, denies, denies, denies, denies.?Heart attack?denies, denies, denies, denies, denies, denies, denies.?Septal defect?denies, denies, denies, denies, denies, denies, denies.?Rapid beat?denies, denies, denies, denies, denies, denies, denies.?Chest pain ?denies, denies, denies, denies, denies, denies, denies.?Atrial Fib.?denies, denies, denies, denies, denies, denies, denies.?Murmur/Palpitations?denies, denies, denies, denies, denies, denies, denies.?Gastrointestinal:?Hemorrhoids?denies, denies, denies, denies, denies, denies, denies.?Stomach/Abdominal pain?denies, denies, denies, denies, denies, denies, denies.?Dark blood stool?denies, denies, denies, denies, denies, denies, denies.?Irritable bowel ?denies, denies, denies, denies, denies, denies, denies.?Constipation?denies, denies, denies, denies, denies, denies, denies.?Diarrhea?denies, denies, denies, denies, denies, denies, denies.?Hematology:?Swelling?denies, denies, denies, denies, denies, denies, denies.?Clots?denies, denies, denies, denies, denies, denies, denies.?Varicose Veins?denies, denies, denies, denies, denies, denies, denies.?Bruising?denies, denies, denies, denies, denies, denies, denies.?Bleeding problem?denies, denies, denies, denies, denies, denies, denies.?Genitourinary:?Blood urine?denies, denies, denies, denies, denies, denies, denies.?Frequent/Painfu/urination/bladder control?denies, denies, denies, denies, denies, denies, denies.?Kidney stones?denies, denies, denies, denies, denies, denies, denies. Infection (UTI)?denies, denies, denies, denies, denies, denies, denies.?Nephropathy?denies, denies, denies, denies, denies, denies, denies.?sex trans dis (STD)?denies, denies, denies, denies, denies, denies, denies.?Prostate?denies, denies, denies, denies, denies, denies, denies.?Musculoskeletal:?Hammertoes?denies, denies, denies, denies, denies, denies, denies.?Bunions?denies, denies, denies, denies, denies, denies, denies.?Back Pain?denies, denies, denies, denies, denies, denies, denies.?Muscle Cramps/ Resting?denies, denies, denies, denies, denies, denies, denies.?Muscle cramps / walking?denies, denies, denies, denies, denies, denies, denies.?Generalized aches and pains?denies, denies, denies, denies, denies, denies, denies.?Weakness?denies, denies, denies, denies, denies, denies, denies.?Integ.:?Mancera?denies, denies, denies, denies, denies, denies, denies.?Scars?denies, denies, denies, denies, denies, denies, denies.?Corns/calluses?denies, denies, denies, denies, denies, denies, denies.?Ingrown nails?denies, denies, denies, denies, denies, denies, denies.?Painful nails?denies, denies, denies, denies, denies, denies, denies.?Open Sores?denies, denies, denies, denies, denies, denies, denies.?Rashes?denies, denies, denies, denies, denies, denies, denies.?Neurologic:?Difficulty sleeping?denies, denies, denies, denies, denies, denies, denies.?Brain disorder?denies, denies, denies, denies, denies, denies, denies.?Numbness?denies, denies, denies, denies, denies, denies, denies.?Balance trouble?denies, denies, denies, denies, denies, denies, denies.?Confusion?denies, denies, denies, denies, denies, denies, denies.?Fainting/blackouts?denies, denies, denies, denies, denies, denies, denies.?Tingling?denies, denies, denies, denies, denies, denies, denies.?Tremors?denies, denies, denies, denies, denies, denies, denies.? * Medical History:? * Surgical History:?cataracts 2012umbilical hernia 1994neck cyst removed 1993cystoscopy fro kidney stone with stent right kidney 2012colonoscopy iopsy of atrophied muscle left hip 2012Carpal tunnel Surgery * Hospitalization/Major Diagno stic Procedure:?Denies Past Hospitalization * Family History:?Mother: dece ased 87 yrs, dementia, cva, stroke.?Father: 82 yrs, lung cancer.?Siblings: heart attack, prostate cancer, cvd, cancer.? * Social History:?Tobacco Use:?Tobacco Use/Smoking?Are you a:?former smoker ?Tobacco use other than smoking?Are you an other tobacco user??No ???Miscellaneous:?Caffeine: yes, 1-2 cups per day Coffee. ?Children: yes, 2. ?Exercise: yes, Golf. ?Marital status: . ?Occupation: Semi-retired- [employer]. * Medications:?TakingBaby Aspi rin 81 mg Brimonidine [...] Allergies Verified] Objective: * Vitals:?Ht: 5ft 5in, Wt: 165 , BMI: 27.45, Shoe size: 9.5, BP: 120/70 mm Hg, Ht- cm: 165.1 cm, Wt-k.84 kg. * Examination: ???Ophthalmology Referral: ?DIABETES EYE EXAM?Neurological: [...] located at, , Medial plantar, TA, T5.?Orthopedic: ?MUSCLE STRENGTH:?5/5 all groups in a symmetrical fashion, B/L.?DIGITAL DEFORMITIES:?Digital contracture, PIPJ, 2-5 B/L, incompl-reducible to push-up test, no over, nor underlapping, with evidence of shoe producing skin irritation.?FOOTWEAR:?fair condition, OT were inspected and noted to be worn , in fair condition but giving proper support at the present time.?General Examination: ?FOOT EXAM:?Footwear Evaluation? Assessment: * Assessment: 1.?Type 2 diabetes mellitus with diabetic polyneuropathy - E11.42?2.?Other hammer toe(s) (acquired), right foot - M20.41 (Primary)?3.?Tinea unguium - B35.1?4.?Other hammer toe(s) (acquired), left [...] as necessary. Patient chooses, no pharmaceutical tx (42461).?Keratoma Treatment:?Parring or Cutting of Benign Hyperkeratotic Lesion(s)?08778 (2-4 Lesions) - The Benign hyperkeratotic lesions, as described above were pared, and/or cut utilizing a sterile #15 blade, tissue nippers, and/or dremel.? * Procedure Codes:?62463 DEBRI DE NAIL, 6 OR MORE, Modifiers: XS 47637 TRIM SKIN LESIONS, 2 TO 4, Modifiers: XS * Preventive Medicine:? ??Counseling:?Discussion:?-14: Office or other outpatient visit for the evaluation and management of an established patient, which required a medically appropriate history and/or examination and MODERATE level of DECISION MAKING for: 1 OR MORE CHRONIC PROBLEM(S) THATS WORSENING, 2 STABLE CHRONIC PROBLEMS, A NEWLY DIAGNOSED PROBLEM WITH UNCERTAIN PROGNOSIS, AN ACUTE COMPLICATED INJURY WITH MULTIPLE TREATMENT OPTIONS, OR AN ACUTE PROBLEM WITH ACCOMPANYING SYSTEMIC SYMPTOMS, THAT POSE(S) A MODERATE RISK OF MORBIDITY. THIS CONDITION MAY ALSO INCLUDE RX DRUG MANAGEMENT, OR A DECISON FOR MINOR SURGERY. The visit on the day of the [...] have encouraged the patient to call the office.?Digital Surgery:?Digital surgery was discussed with the patient, including the risks of surgery(below), vs not having surgery (persistent pain, deformity, risk for skin ulceration/infection, loss of toe), the potential surg complications, the anesthesia, and the usual post-op course. No guarentees were given. We discussed the potential procedure complications including, but not limited to: pain, swelling, bleeding, scarring, numbness, infection, delayed/non healing, floppy/unstable/shorthened toe, recurrence, failure of the procedure, overcorrection leading to plantarflexed/downward positioned toe, recurrence, need for further surgery, as well as the possibility for loss of the toe itself. We discussed the use of local anesthesia, and the usual post-op course for healing. No guarentees were given. The patient verbally indicated a full understanding of the above conversation, and any other of their questions were answered to their satisfaction. Alternatives to the procedure were also discussed, including conservative care. I also discussed the usual post-operative course and gave no guarantees regarding outcome.?Digital Treatment:?HT- I explained to the patient the possible etiologies of Hammertoes, including genetics/foot type/shoegear/activity level/exercise routine and the risks/benefits of all the different treatment options for their pain including: No treatment at all, Rest, Ice, New/supportive/wider/deeper Shoegear, Digital Padding/Strapping/Taping/Bracing/Gel protective sleeves, Foot/Ankle AFO Bracing, Stretching exercises, Deep Tissue Massage, Arch support/shoe inserts with splay metatarsal padding, and Custom orthoses. I insisted that any digital devices be removed daily and not worn overnight for safety. The patient is to carefully examine the toes daily for any skin irritation while using any splinting or padding device. The advantages and disadvantages of each option were discussed and the patients questions re: shoegear, padding, custom vs prefabricated inserts, activity level, and consistency in home treatment regimens for optimal success were answered to their verbally confirmed satisfaction.?Shoe Gear Counseling:?SHOE Rx - The patient was counseled in great detail on their muscoloskeletal foot and toe deformities which coincided with the dermatological presentations visualized on exam. We discussed how their deformities put the integrity of their feet at risk for potential pedal complications which makes the accomidative diabetic shoes and cutomizable inserts medically necessary. We discussed the different shoe and insert treatment types and options, as well as the important advantages for adhering to regularly wearing these accomidative devices daily. The patient was made aware of the fact that a failure to abide by these recommedations may be deleterious to their foot health as they are able to prevent many pedal complications such as skin irritation, skin ulceration, infection, and even loss of toe/foot/leg/or life. Time was also spent with the patient dispensing and discussing proper diabetic footcare techniques including daily skin moisturization, daily foot inspection for any interruption in skin integrity including open lesions, or sign of infection such as redness/malodor/drainage/swelling. Also discussed and recommended were procedures regarding daily shoe inspection for the presence of internal foreign bodies as well as any visualized irregular shoe or insert wear. Patient questions re: shoes, inserts, and self foot inspections were answered to their satisfaction as the patient verbally confirmed a full understanding of the above information. A Rx for Extra Depth Orthopedic Shoes with 3 pair of custom heat-molded inserts was dispensed.? * Follow Up:?3 Months * Images: * Sign off status: Completed true * Provider:?Judit Brown, DPM Date:?06/2024 Generated for Printi ng/Fanabilag/eTransmitting on:?09/10/2024 06:39 PM EST History and Physical [...] , Medial plantar, TA, T5 Orthopedic FOOTWEAR: fair condition, OT were inspected and noted to be worn , in fair condition but giving proper support at the present time DIGITAL DEFORMITIES: Digital contracture , PIPJ, 2-5 B/L, incompl-reducible to push-up test, no over, nor underlapping, with evidence of shoe producing skin irritation MUSCLE STRENGTH: 5/5 all groups in a symmetrical fashion, B/L General Examination FOOT EXAM: Lower Extrem ity Neurological Exam performed:: Yes Footwear Evaluation Footwear Evaluation performe d:: Yes Ophthalmology Referral DIABETES EYE EXAM Diabetic Retinopa thy Screening:: Yes Findings of Diabetic Eye Exam:: retinopa thy Nails NAILS are: Elongated, overg rown, dystrophic, lytic, greater than 3mm thick, discolored and friable with crumbly malodorous subungual debris, with dull to no pain on palpation due to neuropathy, 1-5 B/L
--- OUTSIDE RECORDS SUMMARY | 2024-09-10 18:39 | XMS_ITS ---
Author Organization [facility] Address [address] [place] [address] Care Team Providers Care Athletic Shoe Designer Name Role Phone Clarence Costa Primary Care Provider Unav ailable Judit Brown Unavailable [phone] Allergies Allergen (clinical drug ingredient) Drug/Non Drug Allergy documented on EMR Reaction Allergy Type Onset Date Status Iodine hives Drug Allergy Active REASON FOR VISIT Ingrown Nail, At Risk Footcare Medications Medication SIG (Take, Route, Frequency, Duration) Notes Start Date End Date Status Extra Depth Orthopedic Shoes (1 Pair) with Customized Heat Molded Multidensity Innersoles (3 Pair) as directed Dx: NIDDM/Polyneuropathy (E11.42), Hammertoe Foot Deformity (M20.41,M20.42), Preulcerative Skin Lesion(s) (L85.1 06/27/2022 Active Vitamin B12 Not-Taki ng Timolol Maleate 0.5 % 1 drop into affect ed eye Ophthalmic Once a day Active Simvastatin 40 MG 1 tablet in the even ing Orally Once a day for 30 day(s) Active Lisinopril 2.5 MG 1 tablet Orally Once a day for 30 day(s) Active Cyanocobalamin 1000 MCG 1 tablet Orally Once a day for 30 day(s) Not-Taking Latanoprost 0.005 % 1 drop into affected eye in the evening Ophthalmic Once a day Active metFORMIN HCl 500 MG 1 tablet with a elsie l Orally twice a day Active Brimonidine Tartrate 0.15 % 1 drop into affected eye Ophthalmic every 8 hrs Active Baby Aspirin 81 Acti ve Finasteride 5 MG 1 tablet Orally Once [...] (M20.41,M20.42), Preulcerative Skin Lesion(s) (L85.1 05/09/2024 Active Extra Depth Orthopedic Shoes (1 Pair) with Customized Heat Molded Multidensity Innersoles (3 Pair) as directed Dx: NIDDM/Polyneuropathy (E11.42), Hammertoe Foot Deformity (M20.41,M20.42), Preulcerative Skin Lesion(s) (L85.1 Active Social History Tobacco Use: Social History Observation Description Date Details (start date - stop date) Former Smoker NA - NA Tobacco Use/Smoking Question Answer Notes Are you a: former smoker Additional Findings: Tobacco Non-User Ex-cigaret te smoker Alcohol Screen Question Answer Notes Did [...] No Vital Signs Height 5ft 5in in 08/08/2024 Weight 165 lbs 08/08/2024 BMI 27.45 kg/m2 08/08/2024 Encounters Encounter Location Date Provider Diagnosis [facility] [address] [place] [address] 08/08/2024 Judit Brown Ingrown nail L60.0 ; Type 2 diabetes mellitus with diabetic polyneuropathy E11.42 and Tinea unguium B35.1 Assessments Encounter Date Diagnosis (ICD Code) Assessment Notes Treatment Notes Treatment Clinical Notes Section Notes 08/08/2024 Ingrown nail (ICD-10 - L60.0) 08/08/2024 Type 2 diabetes mellitus with diabetic polyneuropathy (ICD-10 - E11.42) 08/08/2024 Tinea unguium (ICD-10 - B35.1) Plan Of Treatment Next Appt Details Follow Up: 3 Months, Reason: Provider Name:Judit baumann, 11/07/2024 09:00:00 AM, [address] [place] [address], [phone], Procedure Notes * Category Sub-Category Detail Notes Nail Avulsion Procedure A fine sterile e levator was placed between the eponychium, nail fold, and nail plate to separate the structures. A sterile nail splitter, and/or sterile 316 blade, was then used to longitudinally section the nail along its entire length through the eponychium to the area under the nail fold. The offending portion of nail was from the nail bed with a rolling action and then removed with a hemostat. No underlying bone was identified. There was minimal bleeding as hemostasis was achieved through the temporary use of either a digital tourniquet or the aforementioned local with epinephrine. A bacitracin sterile dressing was applied. Local wound aftercare instructions were discussed and dispensed. The patient was informed of both conservative and future surgical procedures to prevent recurrence. Tylenol or Motrin was recommended for pain or discomfort (93200) Anesthesia 3cc of 1 percent Lid ocaine Plain local anesthesic utilizing aseptic technique Location Lateral nail border , T5 Debride Nail 6-10 Nail debridement Nail debridem ent performed extensively to reduce/remove overall nail length and girth, subungual debris, and necrotic tissue, by manual and electrical means with use of a nail nipper and/or dremel, to more viable healthy nail plate or bed tissue 6-10. Silver nitrate used for any petechial bleeding as necessary. Patient chooses, no pharmaceutical tx (10206) Keratoma Treatment Parring or Cutting o f Benign Hyperkeratotic Lesion(s) 30933 (2-4 Lesions) - The Benign hyperkeratotic lesions, as described above were pared, and/or cut utilizing a sterile #15 blade, tissue nippers, and/or dremel Progress Notes * Jacob SNOW LeelaDOB:1945 ( 79 yo M)Acc No.[id number]:08/08/2024 Progress Note Patient:?Jacob Snow Provider:?Judit Brown DPM :1945???Age:79 Y???Sex:Male Robin e:08/08/2024 Address:[address] [place] [address] shahid [id number] Pcp:WM Kimbrough Subjective: * Chief Complaints: * ???Ingrown NailAt Risk Footc are * HPI: ???At Risk footcare:?Pt States Last PCP Visit:?Date?08/01/2024 * ROS:?General/Constitutional:?Nausea?denies.?Vomiting?denies.?Hunger Thirst?denies.?Loss appetite?denies.?Chills?denies.?Fatigue?denies.?Fever?denies.?Night Sweats?denies.?Unexplained weight loss?denies.?Unexplained weight gain?denies.?HEENTM:?Dentures?denies.?Dizziness?denies.?Glasses/contacts?denies.?Retinopathy?den ies.?Blurred/double vision?denies.?TMJ?denies.?Discharge/drainage?denies.?Implants?denies.?Sore throat?denies.?Dental implants?denies.?Hard of hearing ?denies.?Difficulty chewing/swallowing/speaking?denies.?Nose bleeds?denies.?Sore mouth?denies.?Respiratory:?On O xygen?denies.?Pneumonia/pleurisy?denies.?Bronchitis?denies.?Emphysema?denies.?Co ughing?denies.?Cough blood?denies.?Shortness of breath?denies.?Wheezing?denies.?Cardiovascular:?Pacemaker?denies.?MVP?denies.?WPW?denies.?CHF?denies.?Heart attack?denies.?Septal defect?denies.?Rapid beat?denies.?Chest pain ?denies.?Atrial Fib.?denies.?Murmur/Palpitations?denies.?Gastrointestinal:?Hemorrhoids?denies.?Stomach/Abdominal pain?denies.?Dark blood stool?denies.?Irritable bowel ?denies.?Constipation?denies.?Diarrhea?denies.?Hematology:?Swelling?denies.?Clots?denies.?Varicose Veins?denies.?Bruising?denies.?Bleeding problem?denies.?Genitourinary:?Blood urine?denies.?Frequent/Painfu/urination/bladder control?denies.?Kidney stones?denies.?Infection (UTI)?denies.?Nephropathy?denies.?sex trans dis (STD)?denies.?Prostate?denies.?Musculoskeletal:?Hammertoes?denies.?Bunions?denies.?Back Pain?denies.?Muscle Cramps/ Resting?denies.?Muscle cramps / walking?denies.?Generalized aches and pains?denies.?Weakness?denies.?Integ.:?Mancera?denies.?Scars?denies.?Corns/calluses?denies.?Ingrown nails?admits.?Painful nails?denies.?Open Sores?denies.?Rashes?denies.?Neurologic:?Difficulty sleeping?denies.?Brain disorder?denies.?Numbness?denies.?Balance t rouble?denies.?Confusion?denies.?Fainting/blackouts?denies.?Tingling?denies.?Michael mors?denies.? * Medical History:? * Surgical History:?cataracts 2012umbilical [...] Social History:?Tobacco Use:?Tobacco Use/Smoking?Are you a:?former smoker ?Additional Findings: Tobacco Non-User?Ex-cigarette smoker ?Tobacco use other than smoking?Are you [...] yes, Golf. ?Marital status: . ?Occupation: Semi-retired- [employer]. * Medications:?TakingBaby Aspi rin 81 mg Brimonidine [...] drop into affected eye Ophthalmic Once a dayExtra Depth Orthopedic Shoes (1 Pair) with Customized [...] into affected eye Ophthalmic Once a dayTaking Extra Depth Orthopedic Shoes (1 Pair) with [...] Hammertoe Foot Deformity (M20.41,M20.42), Preulcerative Skin Lesion(s) (L85.1Not-Taking/PRNVitamin B12 Cephalexin 500 MG Capsule 1 capsule Orally [...] List reviewed and reconciled with the patientNot-Taking/PRN Vitamin B12 Not-Taking/PRN Cephalexin 500 MG Capsule 1 capsule Orally [...] 165 , BMI: 27.45, Shoe size: 9.5, BS: not taken, Ht-cm: 165.1 cm, Wt-k.84 kg. * ???Past Orders: ???Lab:HEMOGLOBIN A1C (GLYCO HEMOGLOBIN) (Order Date - 02/01/2024) (Collection Date - 11/01/2023) ? Value Reference Range ?HEMOGLOBIN A1C % () 7.1 * Examination: ???Ophthalmology Referral: ?DIABETES EYE EXAM?Ingrown Nail: ?INSPECTION:?Reveals nail incurvation, pain on palpation, groove hypertrophy , Lateral nail border , T5.?Neurological: ?SENSORY:? Neurological exam demonstrates, reduced light touch sensation, reduced sharp/dull discrimination, reduced vibration sensation .?Nails: ?NAILS are:?Elongated, overgrown, dystrophic, lytic, greater than 3mm thick, discolored and friable with crumbly malodorous subungual debris, with dull to no pain on palpation due to neuropathy,1-5 B/L.?Dermatologic: ?SKIN FINDINGS:? Skin exam reveals Keratotic lesion(s) located at, , Medial plantar, TA, T5.?General Examination: ?FOOT EXAM:?Footwear Evaluation? Assessment: * Assessment: 1.?Type 2 diabetes mellitus with diabetic polyneuropathy - E11.42?2.?Ingrown nail - L60.0?3.?Tinea unguium - B35.1? Plan: * Treatment: * Procedures:?Debride Nail 6-10:?Nail debridement?Nail debridement performed extensively to reduce/remove overall nail length and girth, subungual debris, and necrotic tissue, by manual and electrical means with use of a nail nipper and/or dremel, to more viable healthy nail plate or bed tissue 6-10. Silver nitrate used for any petechial bleeding as necessary. Patient chooses, no pharmaceutical tx (59586).?Keratoma Treatment:?Parring or Cutting of Benign Hyperkeratotic Lesion(s)?90832 (2-4 Lesions) - The Benign hyperkeratotic lesions, as described above were pared, and/or cut utilizing a sterile #15 blade, tissue nippers, and/or dremel.?Nail Avulsion:?Location?Lateral nail border , T5.?Anesthesia?3cc of 1 percent Lidocaine Plain local anesthesic utilizing aseptic technique.?Procedure?A fine sterile elevator was placed between the eponychium, nail fold, and nail plate to separate the structures. A sterile nail splitter, and/or sterile 316 blade, was then used to longitudinally section the nail along its entire length through the eponychium to the area under the nail fold. The offending portion of nail was from the nail bed with a rolling action and then removed with a hemostat. No underlying bone was identified. There was minimal bleeding as hemostasis was achieved through the temporary use of either a digital tourniquet or the aforementioned local with epinephrine. A bacitracin sterile dressing was applied. Local wound aftercare instructions were discussed and dispensed. The patient was informed of both conservative and future surgical procedures to prevent recurrence. Tylenol or Motrin was recommended for pain or discomfort (03638).? * Procedure Codes:?52897 DEBRI DE NAIL, 6 OR MORE, Modifiers: XS 18474 Avulsion Plate, Modifiers: XS 53463 TRIM SKIN LESIONS, 2 TO 4, Modifiers: XS * Follow Up:?3 Months * Images: * Sign off status: Completed true * Provider:Kayla Brown, ALEENA Date:?05/2024 Generated for Kiko suárez/Stefany/eTransmitting on:?09/10/2024 06:39 PM EST History and Physical Notes * HPI (History of Present Illness) Category Sub-Category Detail Notes Category Not es At Risk footcare Pt States Last PCP Visit: Date: 4 Examination Category Sub-Category Detail Notes Category Not es Ingrown Nail INSPECTION: Reveals nail inc urvation, pain on palpation, groove hypertrophy , Lateral nail border , T5 Neurological SENSORY: Neurological exa m demonstrates, reduced light touch sensation, reduced sharp/dull discrimination , reduced vibration sensation Dermatologic SKIN FINDINGS: Skin exam reveal s Keratotic lesion(s) located at, , Medial plantar, TA, T5 General Examination FOOT EXAM: Lower Extrem ity Neurological Exam performed:: Yes Footwear Evaluation Footwear Evaluation performe d:: Yes Ophthalmology Referral DIABETES EYE EXAM Procedure Perform ed:: Yes ?Date of Exam Performed: 05/01/2024 Findings of Diabetic Eye Exam:: no retin opathy Nails NAILS are: Elongated, overg rown, dystrophic, lytic, greater than 3mm thick, discolored and friable with crumbly malodorous subungual debris, with dull to no pain on palpation due to neuropathy, 1-5 B/L
--- OUTSIDE RECORDS SUMMARY | 2024-09-10 18:40 | XMS_ITS | Patient Health Record ---
[facility] Address [address] [place] [address] Care Team Providers Care Personnel Analyst Name Role Phone Clarence Costa Primary Care Provider Unav ailable Judit Brown Unavailable [phone] Allergies Allergen (clinical drug ingredient) Drug/Non Drug Allergy documented on EMR Reaction Allergy Type Onset Date Status Iodine hives Drug Allergy Active Results Component Value Reference Range Notes HEMOGLOBIN A1C (GLYCOHEMOGLO BIN) Reviewed date:11/02/2023 10:06:24 AM Interpretation: Performing Lab: Notes/Report: HEMOGLOBIN A1C % (HH) 7.1 HEMOGLOBIN A1C (GLYCOHEMOGLO BIN) Reviewed date:05/09/2024 09:03:22 AM Interpretation: Performing Lab: Notes/Report: HEMOGLOBIN A1C % (HH) 6.5 HEMOGLOBIN A1C (GLYCOHEMOGLO BIN) Reviewed date:02/01/2024 09:26:00 AM Interpretation: Performing Lab: Notes/Report: HEMOGLOBIN A1C % (HH) 7.1 Reason For Referral Diagnosis 1 Type 2 diabetes myrtle itus with diabetic polyneuropathy (E11.42) Diagnosis 2 Other hammer toe(s) (acquired), right foot (M20.41) Diagnosis 3 Other hammer toe(s) (acquired), left foot (M20.42) Diagnosis 4 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) Referring Provider First Name Clarence Referring Provider Last Name Raya Referred Organization [facility] Rafal Referred Provider Judit Brown Referred Address [address],[place], [place],[address],[place] Referred Provider Specialty Podiatry Referral Priority Routine Medications Medication SIG (Take, Route, Frequency, Duration) [...] Once a day for 30 day(s) Not-Taking Lisinopril 2.5 MG 1 tablet Orally Once a day for 30 day(s) Active Finasteride 5 MG 1 tablet Orally Once a day for 30 day(s) Not-Taking Latanoprost 0.005 % 1 drop into affected eye in the evening Ophthalmic Once a day Active Aspirin 81 MG 1 tablet Orally Once a day for 30 day(s) Not-Taking metFORMIN HCl 500 MG 1 tablet with a elsie l Orally twice a day Active Extra Depth Orthopedic Shoes (1 Pair) with Customized Heat Molded Multidensity Innersoles (3 Pair) as directed Dx: NIDDM/Polyneuropathy (E11.42), Hammertoe Foot Deformity (M20.41,M20.42), Preulcerative Skin Lesion(s) (L85.1 Not-Taking Brimonidine Tartrate 0.15 % 1 drop into affected eye Ophthalmic every 8 hrs Active Extra Depth Orthopedic Shoes (1 Pair) with Customized Heat Molded Multidensity Innersoles (3 Pair) as directed Dx: NIDDM/Polyneuropathy (E11.42), Hammertoe Foot Deformity (M20.41,M20.42), Preulcerative Skin Lesion(s) (L85.1 06/10/2019 Not-Taking Cephalexin 500 MG 1 capsule Orally laura ry 12 hrs for 5 day(s) Not-Taking Baby Aspirin 81 Acti ve Extra Depth Orthopedic Shoes (1 Pair) with Customized Heat Molded Multidensity Innersoles (3 Pair) as directed Dx: NIDDM/Polyneuropathy (E11.42), Hammertoe Foot Deformity (M20.41,M20.42), Preulcerative Skin Lesion(s) (L85.1 05/09/2024 Active Extra Depth Orthopedic Shoes (1 Pair) with Customized Heat Molded Multidensity Innersoles (3 Pair) as directed Dx: NIDDM/Polyneuropathy (E11.42), Hammertoe Foot Deformity (M20.41,M20.42), Preulcerative Skin Lesion(s) (L85.1 Active Immunizations Vaccine Route Administration Date Status Comme nts COVID-19 Pfizer BioNTech Vaccine Unknown 07/16/2021 Administered 1st 12/13/2020 2nd 12/30/2020 Influenza Unknown 08/04/2019 Administered Influenza Unknown 07/16/2021 Administered Influenza Unknown 07/02/2023 Administered Social History Tobacco Use: Social History Observation [...] Are you an other tobacco user? No Problems Problem Type SNOMED Code ICD Code Onset Dates Problem Status W/U Status Risk Notes Problem Acquired hammer toe of right foot (4670018106840886 ) Other hammer toe(s) (acquired), right foot (M20.41) Active confirmed Problem Acquired hammer toe of left foot (2676061162987239 ) Other hammer toe(s) (acquired), left foot (M20.42) Active confirmed Problem Polyneuropathy due to type 2 diabetes mellitus (661091399) Type 2 diabetes mellitus with diabetic polyneuropathy (E11.42) Active confirmed Problem 84994460 Osteoarthritis o f left ankle and foot (M19.072) Active confirmed Vital Signs Blood pressure diastolic 70 mm Hg 05/09/2024 Height 5ft 5in in 08/08/2024 Blood pressure systolic 120 mm Hg 05/09/2024 Weight 165 lbs 08/08/2024 BMI 27.45 kg/m2 08/08/2024 Encounters Encounter Location Date Provider Diagnosis [address] [address] 11/02/2023 Judit Rebecapastor Type 2 diabetes mellitus with diabetic polyneuropathy E11.42 ; Other hammer toe(s) (acquired), right foot M20.41 ; Tinea unguium B35.1 and Other hammer toe(s) (acquired), left foot M20.[address] [address] 02/01/2024 Judit Brown Type 2 diabetes mellitus with diabetic polyneuropathy E11.42 ; Other hammer toe(s) (acquired), right foot M20.41 ; Tinea unguium B35.1 and Other hammer toe(s) (acquired), left foot M20.[address] [address] 05/09/2024 Judit Brown Type 2 diabetes mellitus with diabetic polyneuropathy E11.42 ; Other hammer toe(s) (acquired), right foot M20.41 ; Tinea unguium B35.1 and Other hammer toe(s) (acquired), left foot M20.[address] [address] 08/08/2024 Judit Rebecapastor Ingrown nail L60.0 ; Type 2 diabetes mellitus with diabetic polyneuropathy E11.42 and Tinea unguium B35.1 Assessments Encounter Date Diagnosis (ICD Code) Assessment Notes Treatment Notes Treatment Clinical Notes Section Notes 11/02/2023 Type 2 diabetes mellitus with diabetic polyneuropathy (ICD-10 - E11.42) 02/01/2024 Other hammer toe(s) (acquired), right foot (ICD-10 - M20.41) 02/01/2024 Type 2 diabetes mellitus with diabetic polyneuropathy (ICD-10 - E11.42) 05/09/2024 Type 2 diabetes mellitus with diabetic polyneuropathy (ICD-10 - E11.42) 08/08/2024 Type 2 diabetes mellitus with diabetic polyneuropathy (ICD-10 - E11.42) 08/08/2024 Ingrown nail (ICD-10 - L60.0) 08/08/2024 Tinea unguium (ICD-10 - B35.1) 05/09/2024 Other hammer toe(s) (acquired), right foot (ICD-10 - M20.41) 02/01/2024 Tinea unguium (ICD-10 - B35.1) 11/02/2023 Other hammer toe(s) (acquired), right foot (ICD-10 - M20.41) Patient Educated with: DIABETIC FOOT CARE INSTRUCTIONS. pdf (DIABETIC FOOT CARE INSTRUCTIONS. pdf) 11/02/2023 Tinea unguium (ICD-10 - B35.1) 02/01/2024 Other hammer toe(s) (acquired), left foot (ICD-10 - M20.42) 05/09/2024 Tinea unguium (ICD-10 - B35.1) 05/09/2024 Other hammer toe(s) (acquired), left foot (ICD-10 - M20.42) 11/02/2023 Other hammer toe(s) (acquired), left foot (ICD-10 - M20.42) Plan Of Treatment Next Appt Details Provider Name:Judit baumann, 11/07/2024 09:00:00 AM, [address] [place] [address], [phone], Insurance Providers Payer Name Payer Address Payer Phone Subscriber Number Group Number Insured Name Patient Relationship to Insured Coverage Start Date Coverage End Date [facility] [address] [place] [phone] [id number] Jacob Snow Self - patient is the insured Medical (General) History Medical History History ICD Code type 2 diabetes Arthritis Hypertension dyslipidemia Glaucoma polyarthralgia Hemorrhoids Diverticulosis tubular adenoma enlarged prostate actinic keratosis gilberts syndrome Cholelithiasis Nephrolithiasis Liver lesion, right lobe Reflux ( GERD) arthropathy Surgical History Surgery Date(Month/Year) cataracts 2012 umbilical hernia 1994 neck cyst removed 1993 cystoscopy fro kidney stone with stent r ight kidney 2012 colonoscopy 03/2012 biopsy of atrophied muscle left hip 2011 Carpal tunnel Surgery
--- OUTSIDE RECORDS SUMMARY | 2024-09-10 18:40 | XMS_ITS | Patient Health Record ---
Author Organization [facility] Address [address] [place] [address] Care Team Providers Care Dumb Waiter Operator Name Role Phone NIVIA MORRIS Primary Care Provider Romulo Lawrence [phone] ALLERGIES Allergen (clinical drug ingredient) Drug/Non Drug Allergy documented on EMR Reaction Allergy Type Onset Date Status IV Contrast Dye (uncoded) Unknown Allergy Active REASON FOR REFERRAL No Information MEDICATIONS Medication SIG (Take, Route, Frequency, Duration) Notes Start Date End Date Status Lisinopril 5 MG 1 tablet Orally Once a day Active Ibuprofen 600 MG 1 tablet Orally twic e a day Not-Taking Brimonidine Tartrate 0.15 % 1 drop into affected eye Ophthalmic two times a day Active Aspirin 81 Active Simvastatin 40 MG 1 tablet in the even ing Orally Once a day Active metFORMIN HCl 500 MG 1 tablet with meals Orally Twice a day Active Latanoprost 0.005 % 1 drop into affected eye in the evening Ophthalmic Once a day Active Timolol Maleate 0.5 % 1 drop into affect ed eye Ophthalmic Once a day Active IMMUNIZATIONS Vaccine Route Administration Date Status Comme nts Influenza Unknown 11/03/2022 Refused SOCIAL HISTORY Sex Assigned At : Social History Observation Description Sex Assigned At Unknown Alcohol Screen Question Answer Notes Did you have a drink contain ing alcohol in the past year? Yes How often did you have a dri nk containing alcohol in the past year? 2 to 3 times a week (3 points) How many drinks did you have on a typical day when you were drinking in the past year? 1 or 2 drinks (0 point) How often did you have 6 or more drinks on one occasion in the past year? Never (0 point) Points 3 Interpretation Negative PROBLEMS Problem Type ICD Code Onset Dates Problem Status W/U Status Risk SNOMED Code Notes Problem Colon cancer screening (Z12.11) Active confirmed 636332185 Problem Encounter for screening for malignant neoplasm of colon (Z12.11) Active confirmed 879374199 Problem History of adenomatous polyp of colon (Z86.010) Active confirmed 781264865 Problem Diverticulosis of large intestine without perforation or abscess without bleeding (K57.30) Active confirmed Diverticul ar disease of colon (419227185) Problem Preprocedural examination (Z01.818) Active confirmed 388048325612088 Problem Long-term use of aspirin therapy (Z79.82) Active confirmed 435693625 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 [place] [phone] [id number] [place] Self - patient is the insured MEDICAL (GENERAL) HISTORY Medical History History ICD Code Hyperlipidemia Fatty liver---elevated Indir ect bilirubin since at least 1995--Gilbert's disease---other liver w/u was negative in 1995 Tubular adenomas of the colon removed in 2004 and 11/2011 Glaucoma Arthritis Denies HI,CVA,Lung disease,renal disease NIDDM Told of sleep apnea approx 1 0 years ago, but hasn't used the CPAP or nasal apparatus for > 2 years Hypertension Negative colonoscopy in 05/2017 Glaucoma Surgical History Surgery Date(Month/Year) Umbilical hernia surgery Left eye surgery and having future right eye surgery for glaucoma
== END 2024-09-09 07:56 | disposition home or self-care (01) ==
LOC: HO.HAP 07:55
PROVIDERS: Visit Provider Nurse Practitioner Family
DX: Z13.89 Encounter for screening for other disorder (principal)

== ENCOUNTER 2024-10-29 13:31 | Outpatient (REF) | payer SELFPAY ==
--- OUTSIDE RECORDS SUMMARY | 2024-10-29 15:44 | XMS_ITS | Patient Health Record ---
[facility] Address [address] [place] [address] Care Team Providers Care Eyedotter Name Role Phone Clarence Costa Primary Care Provider Unav ailable Judit Brown Unavailable [phone] Allergies Allergen (clinical drug ingredient) Drug/Non Drug Allergy documented on EMR Reaction Allergy Type Onset Date Status Iodine hives Drug Allergy Active Results Component Value Reference Range Notes HEMOGLOBIN A1C (GLYCOHEMOGLO BIN) Reviewed date:05/09/2024 09:03:22 [...] Referring Provider Last Name Raya Referred Organization [facility] Rafal Referred Provider Judit Brown Referred Address [address] [facility],[place], [place],[address], Referred Provider Specialty Podiatry Referral Priority Routine [...] Problem Acquired hammer toe of right foot (0825490692359795 ) Other hammer toe(s) (acquired), right foot (M20.41) Active confirmed Problem Acquired hammer toe of left foot (9495348761160068 ) Other hammer toe(s) (acquired), left foot (M20.42) Active confirmed Problem Polyneuropathy due to type 2 diabetes mellitus (143288588) Type 2 diabetes mellitus with diabetic polyneuropathy (E11.42) Active confirmed Problem 75069222 Osteoarthritis o f left ankle and foot (M19.072) Active confirmed Vital Signs Blood pressure diastolic 70 mm Hg 05/09/2024 Height 5ft 5in in 08/08/2024 Blood pressure systolic 120 mm Hg 05/09/2024 Weight 165 lbs 08/08/2024 BMI 27.45 kg/m2 08/08/2024 Encounters Encounter Location Date Provider Diagnosis [facility] [place] [address] [place] [address] 11/02/2023 Judit Brown Type 2 diabetes mellitus with diabetic polyneuropathy E11.42 ; Other hammer toe(s) (acquired), right foot M20.41 ; Tinea unguium B35.1 and Other hammer toe(s) (acquired), left foot M20.[address] [address] 02/01/2024 Judit Brown Type 2 diabetes mellitus with diabetic polyneuropathy E11.42 ; Other hammer toe(s) (acquired), right foot M20.41 ; Tinea unguium B35.1 and Other hammer toe(s) (acquired), left foot M20.[address] [address] 05/09/2024 Judit Brown Type 2 diabetes mellitus with diabetic polyneuropathy E11.42 ; Other hammer toe(s) (acquired), right foot M20.41 ; Tinea unguium B35.1 and Other hammer toe(s) (acquired), left foot M20.[address] [address] 08/08/2024 Judit Brown Ingrown nail L60.0 ; [...] Details Provider Name:Judit baumann, 11/07/2024 09:00:00 AM, [address] [place] [address], [phone], Insurance Providers Payer Name Payer Address Payer Phone Subscriber Number Group Number Insured Name Patient Relationship to Insured Coverage Start Date Coverage End Date [facility] [address] ELSIE Mejia [phone] [id number] Jacob Snow Self - patient is the [...] 03/2012 biopsy of atrophied muscle left hip 2012 Carpal tunnel Surgery
--- OUTSIDE RECORDS SUMMARY | 2024-10-29 15:45 | XMS_ITS ---
Author Organization [facility] Address [address] [place] [address] Care Team Providers Care Bottle Caser Name Role Phone Clarence Costa Primary Care Provider Unav ailable Judit Brown Unavailable [phone] Allergies Allergen (clinical drug ingredient) Drug/Non Drug [...] an other tobacco user? No Vital Signs Blood pressure systolic 120 mm Hg 05/09/20 24 Blood pressure diastolic 70 mm Hg 024 Height 5ft 5in in 05/09/2024 Weight 165 lbs 05/09/2024 BMI 27.45 kg/m2 05/09/2024 Encounters Encounter Location Date Provider Diagnosis [facility] [address] [address] 05/09/2024 Judit Brown Type 2 diabetes mellitus [...] Reason: Provider Name:Judit baumann, 11/07/2024 09:00:00 AM, [address] [place] [address], [phone], Procedure Notes * Category Sub-Category Detail Notes [...] as necessary. Patient chooses, no pharmaceutical tx (20616) Keratoma Treatment Parring or Cutting o f Benign Hyperkeratotic Lesion(s) 10455 (2-4 Lesions) - The Benign hyperkeratotic lesions, as described above were pared, and/or cut utilizing a sterile #15 blade, tissue nippers, and/or dremel Progress Notes * Jacob SNOWDOB:1945 ( 79 yo M)Acc No.[id number]:05/09/2024 Progress Note Patient:?Jacob Snow Provider:?Judit Brown DPM :1945???Age:79 Y???Sex:Male Robin e:05/09/2024 Address:[address] [place], [place] [id number] Pcp:WM Kimbrough Subjective: * Chief Complaints: * [...] yes, Golf. ?Marital status: . 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 * Medications:?TakingBaby Aspi rin 81 mg Brimonidine [...] as necessary. Patient chooses, no pharmaceutical tx (28515).?Keratoma Treatment:?Parring or Cutting of Benign Hyperkeratotic Lesion(s)?01902 (2-4 Lesions) - The Benign hyperkeratotic lesions, as described above were pared, and/or cut utilizing a sterile #15 blade, tissue nippers, and/or dremel.? * Procedure Codes:?97505 DEBRI DE NAIL, 6 OR MORE, Modifiers: XS 13140 TRIM SKIN LESIONS, 2 TO 4, Modifiers: [...] Brown, DPM Date:?06/2024 Generated for Printi ng/Fanabilag/eTransmitting on:?10/29/2024 03:44 PM EST History and Physical Notes * [...]
--- OUTSIDE RECORDS SUMMARY | 2024-10-29 15:45 | XMS_ITS ---
Author Organization [facility] Address [address] [place] [address] Care Team Providers Care Home Health Care Coordinator Name Role Phone Clarence Costa Primary Care Provider Unav ailable Judit Brown Unavailable [phone] Allergies Allergen (clinical drug ingredient) Drug/Non Drug [...] Signs Blood pressure systolic 120 mm Hg 02/01/20 24 Blood pressure diastolic 70 mm Hg 024 Height 5ft 5in in 02/01/2024 Weight 165 lbs 02/01/2024 BMI 27.45 kg/m2 02/01/2024 Encounters Encounter Location Date [facility] [address] [place] [address] 02/01/2024 Judit Brown Type 2 diabetes mellitus [...] Reason: Provider Name:Judit baumann, 11/07/2024 09:00:00 AM, [address] [place] [address], [phone], Procedure Notes * Category Sub-Category Detail [...] as necessary. Patient chooses, no pharmaceutical tx (98019) Keratoma Treatment Parring or Cutting o f Benign Hyperkeratotic Lesion(s) 97248 (2-4 Lesions) - The Benign hyperkeratotic lesions, as described above were pared, and/or cut utilizing a sterile #15 blade, tissue nippers, and/or dremel Progress Notes * Jacob SNOWDOB:1945 ( 78 yo M)Acc No.[id number]:02/01/2024 Progress Note Patient:?Jacob Snow Provider:?Judit Brown DPM :1945???Age:78 Y???Sex:Male Orbin e:02/01/2024 Address:[address] [place] [address] [id number] Pcp:WM Kimbrough Subjective: * Chief Complaints: * [...] yes, Golf. ?Marital status: . 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 * Medications:?TakingBaby Aspi rin 81 mg Brimonidine [...] as necessary. Patient chooses, no pharmaceutical tx (27007).?Keratoma Treatment:?Parring or Cutting of Benign Hyperkeratotic Lesion(s)?47984 (2-4 Lesions) - The Benign hyperkeratotic lesions, as described above were pared, and/or cut utilizing a sterile #15 blade, tissue nippers, and/or dremel.? * Procedure Codes:?89485 DEBRI DE NAIL, 6 OR MORE, Modifiers: XS 08916 TRIM SKIN LESIONS, 2 TO 4, Modifiers: [...] Provider:?Judit Brown DPM Date:?11/2023 Generated for Kiko suárez/Stefany/Deena on:?10/29/2024 03:44 PM EST History and Physical [...]
--- OUTSIDE RECORDS SUMMARY | 2024-10-29 15:45 | XMS_ITS | Patient Health Record ---
Author Organization [facility] Address [address] [place] [address] Care Team Providers Care Winery Cellar Hand Name Role Phone NIVIA MORRIS Primary Care Provider Romulo Lawrence [phone] ALLERGIES Allergen (clinical drug ingredient) Drug/Non Drug [...] Problem Colon cancer screening (Z12.11) Active confirmed 255223662 Problem Encounter for screening for malignant neoplasm of colon (Z12.11) Active confirmed 330164130 Problem History of adenomatous polyp of colon (Z86.010) Active confirmed 536960085 Problem Diverticulosis of large intestine without perforation or abscess without bleeding (K57.30) Active confirmed Diverticul ar disease of colon (312889800) Problem Preprocedural examination (Z01.818) Active confirmed 586047370936794 Problem Long-term use of aspirin therapy (Z79.82) Active confirmed 728474192 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
--- OUTSIDE RECORDS SUMMARY | 2024-10-29 15:45 | XMS_ITS | Clinical Summary ---
Author Organization [facility], Address [address] [place] [address] Phone Care Team Providers Care Field Crops Harvest Machine Operator Name Role Phone Clarence Dos Santos NP Primary Care Provider [phone] Allergies Active Allergy Reactions Criticality Noted Date Comments Iodinated Contrast Media 09/17/2019 Medications metFORMIN (GLUCOPHAGE) 500 MG tablet Take 500 mg by mouth 2 (two) times a day with meals Active simvastatin (ZOCOR) 40 MG tablet Take 40 mg by mouth every night Active cyanocobalamin (VITAMIN B-12) 1000 MCG tablet Take 100 mcg by mouth 1 (one) time each day Active brimonidine (ALPHAGAN) 0.15 % ophthalmic solution 1 drop 3 (three) times a day Active timolol (BETIMOL) 0.5 % ophthalmic solution 1 drop 2 (two) times a day Active lisinopril (PRINIVIL,ZESTRI L) 2.5 MG tablet Take 2.5 mg by mouth 1 (one) time each day Active latanoprost (XALATAN) 0.005 % ophthalmic solution 1 drop every night Active aspirin 81 MG tablet Take 81 mg by mouth 1 (one) time each day Active Active Problems Problem Noted Date Diagnosed Date Microalbuminuria 09/15/2019 Essential (primary) hypertension 09/15/2019 Nephrolithiasis 09/15/2019 Type 2 diabetes mellitus without complication Immunizations Name Administration Dates Next Due Pneumococcal Conjugate 13-Valent 09/04/2019 Family History Medical History Relation Comments Cancer Father Stroke Mother Relation Status Comments Father Mother Social History Tobacco Use Types Packs/Day Years Used Date Smoking Tobacco: Former Cigarettes Smokeless Tobacco: Never Sex and Gender Information Value Date Recorded Sex Assigned at Not on file Legal Sex Male 3:56 PM EST Gender Identity Not on file Sexual Orientation Not on file Last Filed Vital Signs Vital Sign Reading Time Taken Comments Blood Pressure 144/62 11/19/2019 5:07 PM EST Pulse - - Temperature - - Respiratory Rate - - Oxygen Saturation - - Inhaled Oxygen Concentration - - Weight - - Height - - Body Mass Index - - Plan of Treatment Health Maintenance Due Date Last Done Comments Diabetes: Hemoglobin A1C 09/15/2019 Diabetes: Ophthalmology Exam 09/15/2019 Diabetes: Pedal Pulse Checked 09/15/2019 Diabetes: Sensory Foot Exam 09/15/2019 Diabetes: Visual Foot Exam 09/15/2019 Pneumococcal Vaccine: 65+ Ye ars (2 of 2 - PPSV23 or PCV20) 09/04/2020 09/04/2019 Influenza Vaccine (#1) 2024 Hepatitis B Vaccine Aged Out No longe r eligible based on patient's age to complete this topic Insurance [place] Care Teams Field Crops Harvest Machine Operator Relationship Specialty Start Date End Date Clarence Dos Santos NP [facility] [place] [address] PCP - General Nurse Practitioner 10/17/19
--- OUTSIDE RECORDS SUMMARY | 2024-10-29 15:45 | XMS_ITS ---
Author Organization [facility] Address [address] [place] [address] Care Team Providers Care Metal Patternmaker Name Role Phone Clarence Costa Primary Care Provider Unav ailable Judit Brown Unavailable [phone] Allergies Allergen (clinical drug ingredient) Drug/Non Drug [...] 08/08/2024 Encounters Encounter Location Date Provider Diagnosis [facility] [place] [address] [place] [address] 08/08/2024 Judit Brown Ingrown nail L60.0 ; [...] Reason: Provider Name:Judit baumann, 11/07/2024 09:00:00 AM, [address] [place] [address], [phone], Procedure Notes * Category Sub-Category Detail Notes [...] Motrin was recommended for pain or discomfort (11073) Anesthesia 3cc of 1 percent Lid ocaine [...] as necessary. Patient chooses, no pharmaceutical tx (26166) Keratoma Treatment Parring or Cutting o f Benign Hyperkeratotic Lesion(s) 63228 (2-4 Lesions) - The Benign hyperkeratotic lesions, as described above were pared, and/or cut utilizing a sterile #15 blade, tissue nippers, and/or dremel Progress Notes * Jacob SNOW LeelaDOB:1945 ( 79 yo M)Acc No.[id number]:08/08/2024 Progress Note Patient:?Jacob Snow Provider:?Judit Brown DPM :1945???Age:79 Y???Sex:Male Robin e:08/08/2024 Address:[address] [place] [address] shahid [id number] Pcp:WM Kimbrough Subjective: * Chief Complaints: * [...] yes, Golf. ?Marital status: . 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 * Medications:?TakingBaby Aspi rin 81 mg Brimonidine [...] as necessary. Patient chooses, no pharmaceutical tx (42315).?Keratoma Treatment:?Parring or Cutting of Benign Hyperkeratotic Lesion(s)?61915 (2-4 Lesions) - The Benign hyperkeratotic lesions, [...] Motrin was recommended for pain or discomfort (56272).? * Procedure Codes:?73689 DEBRI DE NAIL, 6 OR MORE, Modifiers: XS 18303 Avulsion Plate, Modifiers: XS 73961 TRIM SKIN LESIONS, 2 TO 4, Modifiers: XS * Follow Up:?3 Months * Images: * Sign off status: Completed true * Provider:Kayla Brown, ALEENA Date:?05/2024 Generated for Kiko suárez/Stefany/eTmailesmitting on:?10/29/2024 03:45 PM EST History and Physical Notes * [...]
== END 2024-10-29 13:32 | disposition home or self-care (01) ==
LOC: HO.HAP 13:31
PROVIDERS: Visit Provider Nurse Practitioner Family
DX: Z13.89 Encounter for screening for other disorder (principal)

== ENCOUNTER 2024-11-24 09:46 | Outpatient (AMB) | payer MEDICARE, SELFPAY ==
--- NOTE | 2024-11-24 09:58 | A.OFFPC_ITS ---
Vital Signs 11/24/24 10:01 11/24/24 10:33 Height 5 ft 5 in Weight 160 lb BMI 26.6 BP 150/80 H 142/80 H Blood Pressure Location Lt brachial Lt brachial Position Sitting Sitting Pulse 75 Pulse Source Pulse Oximeter Temp 97.8 F Temp Source Oral Pulse Oximetry (%) 97 Intake Visit Reasons: 6 month Allergies Iodinated Contrast Media [IV DYE, IODINE CONTAINING CONTRAST ] Allergy (Mild, Verified 11/24/24 10:01) HIVES Medication List - Last Reconciled 11/24/24 by EFREM Zepeda- acetaminophen ER (Tylenol Arthritis Pain) 650 mg PO Q12H PRN aspirin 81 mg PO DAILY brimonidine 0.15% drps ophthalmic (eye) latanoprost 0.005% 1 drp ophthalmic (eye) BEDTIME lisinopril 10 mg PO DAILY metformin 500 mg PO BID 90 days sildenafil 100 mg PO DAILY PRN simvastatin 40 mg PO BEDTIME timolol maleate 0.5% 1 drp ophthalmic (eye) BID Tobacco use date assessed: 11/24/24 Fall risk assessment: No Falls in past year Last assessed Fall Risk: 11/24/24 Dental Screening Dental Screen Date: 11/24/24 Did you have a dental visit in the last 12 months?: Yes Did you have a dental problem in the last 6 months where you did not have access to dental care?: No Was dental information given to patient?: Patient has dentist HPI 6 month HPI Details Chief Complaint Follow-up for diabetes management. History of Present Illness The patient is a 79-year-old male presenting with a follow-up visit for the management of his diabetes mellitus. He reports no shortness of breath or chest pain and states he has been ambulating adequately. The patient denies e xperiencing polyuria, polydipsia, or neuropathy. He has good sensation in his feet, as confirmed by monofilament testing, and reports regular podiatric and ophthalmologic evaluations. His glycosylated hemoglobin (A1c) is in the upper 5% range, indicating that his diabetes is fairly well-controlled. Nevertheless, a mild anemia interferes with the most accurate representation of his diabetic status through A1c measurement. The patient reports feeling generally well overall. NOTE: BP thought to be elevated due to anxiety today (teary eyed talking about his ) Social History - Denies experiencing polyuria or polydi psia, which may impact routine life and hydration status. - Regular podiatric and ophthalmologic c are which indicates a proactive approach toward managing diabetes-related complications. Health Maintenance - Regular podiatric care for diabetes-re late foot health. - Regular ophthalmologic checkups for di abetes-related eye care. - Monitoring of A1c levels as part of di abetes management. Review of Systems - Respiratory: Denies shortness of breat h. - Cardiovascular: Denies chest pain. - Endocrine: Denies polyuria, polydipsia , and neuropathy. Physical Exam General: Cooperative, healthy appearing, comfortable, no acute distress and well developed Orientation: Patient oriented x3 Limitations: No limitations Head: Normal to inspection Ears: Hearing grossly normal bilaterally Nose: Normal external nose present Face and sinus: Normal facial exam Eyes: Appearance normal, both eyes and all related structures Neck: Normal visual inspection and Yes full ROM Respiratory: Normal respiratory effort and able to speak in complete sentences. Clear to auscultation bilaterally Cardiovascular: Regular rate and rhythm. Normal S1 and S2 GI: Normal to inspection. Soft to palpation and nontender Skin: No rashes or lesions noted Neuro: Patient oriented x3 Extremities: Normal to inspection, good sensation with the use of monofilament to feet, feet were intact Results - Labs: A1c in the upper 5% range indica ting fair control of diabetes. - Tests: Presence of mild anemia affecti ng the accuracy of A1c measurement. Plan 1. Anemia Anemia is noted, and its presence may affect the accuracy of A1c readings. Further investigation or monitoring may be required to elucidate the underlying cause and determine any necessary treatment. 2. Diabetes Mellitus Diabetes mellitus is currently well-controlled with an A1c in the upper 5% range. The continuation of current management is advised with regular follow-up appointments to monitor blood glucose levels, A1c, and potential complications. Encourage consistent podiatric and ophthalmologic evaluations. Discussion Notes I discussed with the patient the current stability of his diabetes management, highlighting that his A1c is in the upper 5% range but remains well-controlled. We talked about the potential impact of anemia on A1c accuracy. I reiterated the importance of continuing regular podiatric and ophthalmologic evaluations to manage and prevent diabetes-related complications effectively. Follow-up and ongoing monitoring were emphasized. Patient Instructions - Continue current diabetes management p garry and check blood glucose levels regularly. - Keep regular appointments with your po diatrist and eye doctor. - Monitor any symptoms that may arise, a nd report them at the next appointment. - Stay informed about the impact of anem ia on A1c readings and discuss any related concerns in future visits. [facility] Medical History CKD (chronic kidney disease) stage 3, GFR 30-59 ml/min Tinea unguium Internal hemorrhoids Diverticulitis Glaucoma Arthritis Enlarged prostate HTN (hypertension) [place] disease Actinic keratosis Tubular adenoma Dyslipidemia Diabetes Surgical History History of removal of neck cyst History of colonoscopy History of cystoscopy History of umbilical hernia repair History of cataract surgery Family History Father Lung cancer Smoker Mother History of CVA (cerebrovascular accident) Dementia Stroke Son No problems noted. Daughter No problems noted. 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 1. Little interest or pleasure in doing things: not at all 2. Feeling down, depressed, or hopeless: not at all 3. Trouble falling or staying asleep, or sleeping too much: not at all 4. Feeling tired or having little energy: not at all 5. Poor appetite or overeating: not at all 6. Feeling bad about yourself - or that you are a failure or have let yourself or your family down: not at all 7. Trouble concentrating on things, such as reading the newspaper or watching television: not at all 8. Moving or speaking so slowly that other people could have noticed. Or the opposite - being so fidgety or restless that you have been moving around a lot more than usual: not at all 9. Thoughts that you would be better off or of hurting yourself in some way: not at all Total score: 0 Depression Screening Interpretation: Negative Depression Screening Done: Yes 53124 - PHQ-9 Billing: Yes Source: Developed by Drs. Romulo Engle, Michelle Funk, Ramesh White and colleagues, with an educational keyonna from [employer]. Thrive Questionnaire Date Thrive assessed: 11/24/24 I am a: Patient What is your living situation today?: I have a steady place to live Within the past 12 months, did the food you bought not last and you didn't have the money to get more?: Never true Within the past 12 months, did you worry whether your food would run out before you got money to buy more?: Never true Do you have trouble paying for medicines?: No Do you have trouble getting transportation to medical appointments?: No Do you have trouble paying your heating and electricity bill?: No Do you have trouble taking care of your child, family member or friend?: No Do you have trouble with day-to-day activities such as bathing, preparing meals, shopping, managing finances, etc.?: No Are you currently unemployed and looking for a job?: No Are you interested in more education?: No THRIVE Score: 0 AUDIT C Alcohol Use Questionnaire (AUDIT-C) 1. How often do you have a drink containing alcohol?: Monthly or less 2. How many drinks containing alcohol do you have on a typical day when you are drinking?: 1 or 2 3. How often do you have six or more drinks on one occasion?: Never Total Score: 1 Score Reviewed/Action Taken: Yes EMILY-7 AMB Questionnaire EMILY-7 Date EMILY - 7 assessed: 11/24/24 Feeling nervous, anxious, or on edge: 0 = Not at all Not being able to stop or control worryin = Not at all Worrying too much about different things: 0 = Not at all Trouble relaxin = Not at all Being so restless that it is hard to sit still: 0 = Not at all Becoming easily annoyed or irritable: 0 = Not at all Feeling afraid as if something awful might happen: 0 = Not at all Total EMILY-7 score (0-4 normal; 5-9 mild; 10-14 moderate; 15-21 severe): 0 Source: Developed by Drs. Romulo Engle, Michelle Funk, Ramesh White and colleagues, with an educational keyonna from [employer]. EMILY-7 Assessment Billing EMILY-7 Assessment Tool: EMILY-7 Assessment 18332 Physical exam (Primary Care) Vital Signs: Last Vital Signs Temp 97.8 F 11/24/24 10:01 Pulse 75 11/24/24 10:01 BP 150/80 H 11/24/24 10:01 Pulse Ox 97 11/24/24 10:01 BMI result Body Mass Index 26.6 Tobacco/Smoking Status: Tobacco use Status Tobacco use date assessed 11/24/24 11/24/24 10:04 Patient Tobacco Use Status Former Tobacco user 11/24/24 10:00 e-Cigarette/Vaping Use Never Used 11/24/24 10:00 PHQ-9: PHQ-9 Score PHQ-9: Total score 0 11/24/24 10:17 Depression Screening Interpretation: Negative Thrive Assessment: Date of Thrive Assessment Date Thrive assessed 11/24/24 11/24/24 10:00 Coding Level of Care Code Est Pt Level 3 (86961) Diagnoses Type 2 diabetes mellitus without complication, without long-term current use of insulin E11.9 Diabetes mellitus complication status: without complication 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 Diabetes mellitus type: type 2 Anemia D64.9 Increased prostate specific antigen (PSA) velocity R97.20 Additional Codes EMILY-7 Assessment Billing - EMILY-7 Assessment Tool: EMILY-7 Assessment 19868 ([id number]) PHQ-9 - 73736 - PHQ-9 Billing: Yes ([id number]) Assessment & Plan Assessment & Plan (1) Diabetes: Code(s): E11.9 - Type 2 diabetes mellitus without complications Category: Medical Qualifiers: Diabetes mellitus complication status: without complication 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 Orders: Orders Complete Blood Count Auto Diff Today E11.9 - Type 2 diabetes mellitus without complications TSH reflex Free T4 Today E11.9 - Type 2 diabetes mellitus without complications UA CC w/rflx Micro + Cult Today E11.9 - Type 2 diabetes mellitus without complications Vitamin B12 and Folate Today D64.9 - Anemia, unspecified Ferritin Today D64.9 - Anemia, unspecified Immunofixation Pnl, Serum Today D64.9 - Anemia, unspecified Hemoglobin Electrophoresis Today D64.9 - Anemia, unspecified Prostate Specific Antigen Scr Today R97.20 - Elevated prostate specific antigen [PSA] AMB Hemoglobin A1c Today Z13.9 - Encounter for screening, unspecified Comprehensive [place]est[place]. Panel Fast Today E11.9 - Type 2 diabetes mellitus without complications Lipid Panel Today E11.9 - Type 2 diabetes mellitus without complications IRON PROFILE Today D64.9 - Anemia, unspecified Lactate Dehydrogenase Today D64.9 - Anemia, unspecified Reticulocyte Count Today D64.9 - Anemia, unspecified Protein Electrophoresis, Serum Today D64.9 - Anemia, unspecified
[2024-11-24 10:01] VITALS: BP 150/80; PULSE 75; TEMP 36.6; O2SAT 97; BMI 26.6
[2024-11-24 10:33] VITALS: BP 142/80
--- OUTSIDE RECORDS SUMMARY | 2024-11-24 10:42 | XMS_ITS | Clinical Summary ---
Author Organization [facility], Address [address] [place] [address] Phone Care Team Providers Care Car Detailer Name Role Phone Clarence Dos Santos NP Primary Care Provider [phone] Allergies Active Allergy Reactions Criticality Noted Date [...] complete this topic Insurance [place] Care Teams Car Detailer Relationship Specialty Start Date End Date Clarence Dos Santos NP [facility] [place] [address] PCP - General Nurse Practitioner 10/17/19
== END 2024-11-24 10:45 | disposition home or self-care (01) ==
PROVIDERS: PCP Nurse Practitioner Family; Visit Provider Nurse Practitioner Family
DX: E11.9 Type 2 diabetes mellitus without complications (principal); D64.9 Anemia, unspecified; R97.20 Elevated prostate specific antigen [PSA]

== ENCOUNTER → 2024-11-24 09:46 | Outpatient (BNVA) | payer MEDICARE, SELFPAY | PROVIDERS: PCP Nurse Practitioner Family; Visit Provider Nurse Practitioner Family | DX: E11.9 Type 2 diabetes mellitus without complications (principal); D64.9 Anemia, unspecified; R97.20 Elevated prostate specific antigen [PSA] | CPT/HCPCS: 96127; 99212 ==

== ENCOUNTER 2024-11-28 07:40 | Outpatient (REF) | payer MEDICARE, SELFPAY ==
--- OUTSIDE RECORDS SUMMARY | 2024-11-28 07:44 | XMS_ITS ---
Author Organization [facility] Address [address] [place] [address] Care Team Providers Care Salesperson Men'S Hats Name Role Phone Clarence Costa Primary Care Provider Unav ailable Judit Brown Unavailable [phone] Allergies Allergen (clinical drug ingredient) Drug/Non Drug [...] 024 Encounters Encounter Location Date Provider Diagnosis [facility] [address] [address] 05/09/2024 Judit Brown Type 2 diabetes mellitus [...] Up: 3 Months, Reason: Provider Name:Judit baumann, 02/04/2025 09:00:00 AM, [address] [place] [address], [phone], Procedure Notes * Category Sub-Category Detail Notes [...] as necessary. Patient chooses, no pharmaceutical tx (31058) Keratoma Treatment Parring or Cutting o f Benign Hyperkeratotic Lesion(s) 95683 (2-4 Lesions) - The Benign hyperkeratotic lesions, as described above were pared, and/or cut utilizing a sterile #15 blade, tissue nippers, and/or dremel Progress Notes * Jacob SNOWDOB:1945 ( 79 yo M)Acc No.[id number]:05/09/2024 Progress Note Patient:?Jacob Snow Provider:?Judit Brown DPM :1945???Age:79 Y???Sex:Male Robin e:05/09/2024 Address:[address] [place], [place] [phone] Pcp:WM Kimbrough Subjective: * Chief Complaints: * [...] yes, Golf. ?Marital status: . 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 * Medications:?TakingBaby Aspi rin 81 mg Brimonidine [...] kg. * Examination: ???Ophthalmology Referral: ?DIABETES EYE EXAM?Diabetic Retinopathy Screening:?Yes ?Findings of Diabetic Eye Exam:?retinopathy?Neurological: ?SENSORY:? Neurological exam demonstrates, reduced light touch [...] support at the present time.?General Examination: ?FOOT EXAM:?Lower Extremity Neurological Exam performed:?Yes ?Footwear Evaluation?Footwear Evaluation performed:?Yes??? Assessment: * Assessment: 1.?Type 2 diabetes mellitus [...] as necessary. Patient chooses, no pharmaceutical tx (31940).?Keratoma Treatment:?Parring or Cutting of Benign Hyperkeratotic Lesion(s)?22323 (2-4 Lesions) - The Benign hyperkeratotic lesions, as described above were pared, and/or cut utilizing a sterile #15 blade, tissue nippers, and/or dremel.? * Procedure Codes:?90272 DEBRI DE NAIL, 6 OR MORE, Modifiers: XS 95989 TRIM SKIN LESIONS, 2 TO 4, Modifiers: [...] * Sign off status: Completed true * Provider:?Judti Brown, DPM Date:?06/2024 Generated for Kiko suárez/Stefany/Deena on:?11/28/2024 07:44 AM EST History and Physical Notes * HPI [...]
--- OUTSIDE RECORDS SUMMARY | 2024-11-28 07:44 | XMS_ITS ---
Author Organization [facility] Address [address] [place] [address] Care Team Providers Care Band Instrument Repairer Name Role Phone Clarence Costa Primary Care Provider Unav ailable Judit Brown Unavailable [phone] Allergies Allergen (clinical drug ingredient) Drug/Non Drug Allergy documented on EMR Reaction Allergy Type Onset Date Status Iodine hives Drug Allergy Active REASON FOR VISIT At Risk Footcare, Toe Irritation Medications Medication SIG (Take, Route, Frequency, Duration) Notes Start Date End Date Status Cyanocobalamin 1000 MCG 1 tablet Orally Once [...] Foot Deformity (M20.41,M20.42), Preulcerative Skin Lesion(s) (L85.1 11/07/2024 Active Vitamin B12 Not-Taki ng Extra Depth Orthopedic Shoes (1 Pair) with Customized Heat Molded Multidensity Innersoles (3 Pair) as directed Dx: NIDDM/Polyneuropathy (E11.42), Hammertoe Foot Deformity (M20.41,M20.42), Preulcerative Skin Lesion(s) (L85.1 05/09/2024 Active Extra Depth Orthopedic Shoes (1 Pair) with Customized Heat Molded Multidensity Innersoles (3 Pair) as directed Dx: NIDDM/Polyneuropathy (E11.42), Hammertoe Foot Deformity (M20.41,M20.42), Preulcerative Skin Lesion(s) (L85.1 Active Extra Depth Orthopedic Shoes (1 Pair) with Customized Heat Molded Multidensity Innersoles (3 Pair) as directed Dx: NIDDM/Polyneuropathy (E11.42), Hammertoe Foot Deformity (M20.41,M20.42), Preulcerative Skin Lesion(s) (L85.1 06/27/2022 Active Timolol Maleate 0.5 % 1 drop into affect ed eye Ophthalmic Once a day Active Simvastatin 40 MG 1 tablet in the even ing Orally Once a day for 30 day(s) Active Lisinopril 2.5 MG 1 tablet Orally Once a day for 30 day(s) Active Latanoprost 0.005 % 1 drop into affected eye in the evening Ophthalmic Once a day Active metFORMIN HCl 500 MG 1 tablet with a elsie l Orally twice a day Active Brimonidine Tartrate 0.15 % 1 drop into affected eye Ophthalmic every 8 hrs Active Baby Aspirin 81 Acti ve Social History Tobacco Use: Social History Observation Description Date Details (start date - stop date) Never Smoker NA - NA Tobacco use other than smoking: Question Answer Notes Are you an other tobacco user? No Tobacco Control (Standard) Question Answer Notes Tobacco use: Nonsmoker Vital Signs Height 5ft 5in in 11/07/2024 Weight 165 lbs 11/07/2024 BMI 27.45 kg/m2 11/07/2024 Blood pressure systolic 120 mm Hg 11/07/19 25 Blood pressure diastolic 70 mm Hg 025 Encounters Encounter Location Date Provider Diagnosis [facility] [address] [place] [address] 11/07/2024 Judit Brown Type 2 diabetes mellitus with diabetic polyneuropathy E11.42 ; Tinea unguium B35.1 ; Other hammer toe(s) (acquired), left foot M20.42 and Other hammer toe(s) (acquired), right foot M20.41 Assessments Encounter Date Diagnosis (ICD Code) Assessment Notes Treatment Notes Treatment Clinical Notes Section Notes 11/07/2024 Type 2 diabetes mellitus with diabetic polyneuropathy (ICD-10 - E11.42) 11/07/2024 Tinea unguium (ICD-10 - B35.1) 11/07/2024 Other hammer toe(s) (acquired), left foot (ICD-10 - M20.42) 11/07/2024 Other hammer toe(s) (acquired), right foot (ICD-10 - M20.41) Patient Educated with: DIABETIC FOOT CARE INSTRUCTIONS. pdf (DIABETIC FOOT CARE INSTRUCTIONS. pdf) Plan Of Treatment Medication Medication Name Sig Start Date Stop Date Notes Extra Depth Orthopedic Shoes (1 Pair) with Customized Heat Molded Multidensity Innersoles (3 Pair) as directed Dx: NIDDM/Polyneuropathy (E11.42), Hammertoe Foot Deformity (M20.41,M20.42), Preulcerative Skin Lesion(s) (L85.1 11/07/2024 Treatment Notes Assessment Notes Other hammer toe(s) (acquired), right fo ot Patient Educated with: DIABETIC FOOT CARE INSTRUCTIONS.pdf (DIABETIC FOOT CARE INSTRUCTIONS.pdf) Next Appt Details Follow Up: 3 Months, Reason: Provider Name:Judit baumann, 02/04/2025 09:00:00 AM, [address] [place], [address], Procedure Notes * Category Sub-Category Detail Notes Debride Nail 6-10 Nail debridement Due to the cl inical pathology outlined in the exam findings, performance of this nail treatment is medically necessary as its management by an unskilled/untrained nonprofessional would put this patients foot and overall health at risk. Therefore, debridement to affected nail(s), as described in exam ( TA, T1, T2, T3, T4, T5, T6, T7, T8, T9, ), was performed exclusively by the physician of record to reduce/remove overall nail length, girth, thickness, subungual debris, and necrotic tissue, by manual and/or electrical means through the use of a nail nipper and/or dremel-type jig grinder, to a more viable healthy nail plate or bed tissue 6-10 nails in total. Silver nitrate was used for any petechial bleeding as necessary. Definitive antifungal treatment options, both pharmaceutical and surgical, have been reviewed and discussed with the patient. The patient solely prefers the use of intermittent/as needed professional debridement services for their nail condition and understands the need for additional periodic treatments to maintain effectiveness in symptomatic relief - 79419 Progress Notes * Jacob SNOWDOB:1945 ( 79 yo M)Acc No.[id number]:11/07/2024 Progress Note Patient:?Jacob SNOW Provider:?Judit Brown DPM :1945???Age:79 Y???Sex:Male Robin e:11/07/2024 Address:[address] [place], [place] [id number] Pcp:WM Kimbrough Subjective: * Chief Complaints: * ???At Risk FootcareToe Irrit ation * HPI: ???At Risk footcare:?Pt States Last PCP Visit:?Date?08/01/2024 ???Toe pain:?Location:?B/L feet.?Duration:?several years.?Course:?worse.?Aggravated by:?shoes, any pressure.?Treatments:?change in shoes.? * ROS:?General/Constitutional:?Nausea?denies.?Vomiting?denies.?Hunger Thirst?denies.?Loss appetite?denies.?Chills?denies.?Fatigue?denies.?Fever?denies.?Night Sweats?denies.?Unexplained weight loss?denies.?Unexplained [...] Surgical History:?cataracts 2012umbilical hernia 1994neck cyst removed 1994cystoscopy fro kidney stone with stent right kidney 2012colonoscopy iopsy of atrophied muscle left hip 2012Carpal tunnel Surgery * Hospitalization/Major Diagno stic Procedure:?Denies Past Hospitalization * Family History:?Mother: dece ased 87 yrs, dementia, cva, stroke.?Father: 82 yrs, lung cancer.?Siblings: heart attack, prostate cancer, cvd, cancer.? * Social History:?Tobacco Use:?Tobacco use other than smoking?Are you an other tobacco user??No ?Tobacco Control (Standard)?Tobacco use:?Nonsmoker ???Miscellaneous:?Caffeine: yes, 1-2 cups per day Coffee. ?Children: yes, 2. ?Exercise: yes, Golf. ?Marital status: . 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 * Medications:?TakingBaby Aspi rin 81 mg Brimonidine Tartrate 0.15 % Solution 1 drop into affected eye Ophthalmic every 8 hrs metFORMIN HCl 500 MG Tablet 1 tablet with a meal Orally twice a day Latanoprost 0.005 % Solution 1 drop into affected eye in the evening Ophthalmic Once a day Lisinopril 2.5 MG Tablet 1 tablet Orally Once a day Simvastatin 40 MG Tablet 1 tablet in the evening Orally Once a day Timolol Maleate 0.5 % Solution 1 drop into affected eye Ophthalmic Once a day Extra Depth Orthopedic Shoes (1 Pair) with Customized Heat Molded Multidensity Innersoles (3 Pair) as directed Dx: NIDDM/Polyneuropathy (E11.42), Hammertoe Foot Deformity (M20.41,M20.42), Preulcerative Skin Lesion(s) (L85.1 Extra Depth Orthopedic Shoes (1 Pair) with Customized Heat Molded Multidensity Innersoles (3 Pair) as directed Dx: NIDDM/Polyneuropathy (E11.42), Hammertoe Foot Deformity (M20.41,M20.42), Preulcerative Skin Lesion(s) (L85.1 Extra Depth Orthopedic Shoes (1 Pair) with Customized Heat Molded Multidensity Innersoles (3 Pair) as directed Dx: NIDDM/Polyneuropathy (E11.42), Hammertoe Foot Deformity (M20.41,M20.42), Preulcerative Skin Lesion(s) (L85.1 Taking Baby Aspirin 81 mg Taking Brimonidine Tartrate 0.15 % Solution 1 drop into affected eye Ophthalmic every 8 hrs Taking metFORMIN HCl 500 MG Tablet 1 tablet with a meal Orally twice a day Taking Latanoprost 0.005 % Solution 1 drop into affected eye in the evening Ophthalmic Once a day Taking Lisinopril 2.5 MG Tablet 1 tablet Orally Once a day Taking Simvastatin 40 MG Tablet 1 tablet in the evening Orally Once a day Taking Timolol Maleate 0.5 % Solution 1 drop into affected eye Ophthalmic Once a day Taking Extra Depth Orthopedic Shoes (1 Pair) with Customized Heat Molded Multidensity Innersoles (3 Pair) as directed Dx: NIDDM/Polyneuropathy (E11.42), Hammertoe Foot Deformity (M20.41,M20.42), Preulcerative Skin Lesion(s) (L85.1 Taking Extra Depth Orthopedic Shoes (1 Pair) with Customized Heat Molded Multidensity Innersoles (3 Pair) as directed Dx: NIDDM/Polyneuropathy (E11.42), Hammertoe Foot Deformity (M20.41,M20.42), Preulcerative Skin Lesion(s) (L85.1 Taking Extra Depth Orthopedic Shoes (1 Pair) with Customized Heat Molded Multidensity Innersoles (3 Pair) as directed Dx: NIDDM/Polyneuropathy (E11.42), Hammertoe Foot Deformity (M20.41,M20.42), Preulcerative Skin Lesion(s) (L85.1 Not-Taking/PRNVitamin B12 Cephalexin 500 MG Capsule 1 capsule Orally every 12 hrs Extra Depth Orthopedic Shoes (1 Pair) with Customized Heat Molded Multidensity Innersoles (3 Pair) as directed Dx: NIDDM/Polyneuropathy (E11.42), Hammertoe Foot Deformity (M20.41,M20.42), Preulcerative Skin Lesion(s) (L85.1 Extra Depth Orthopedic Shoes (1 Pair) with Customized Heat Molded Multidensity Innersoles (3 Pair) as directed Dx: NIDDM/Polyneuropathy (E11.42), Hammertoe Foot Deformity (M20.41,M20.42), Preulcerative Skin Lesion(s) (L85.1 Aspirin 81 MG Tablet Delayed Release 1 tablet Orally Once a day Finasteride 5 MG Tablet 1 tablet Orally Once a day Cyanocobalamin 1000 MCG Tablet 1 tablet Orally Once a day Medication List reviewed and reconciled with the patientNot-Taking/PRN Vitamin B12 Not-Taking/PRN Cephalexin 500 MG Capsule 1 capsule Orally every 12 hrs Not-Taking/PRN Extra Depth Orthopedic Shoes (1 Pair) with Customized Heat Molded Multidensity Innersoles (3 Pair) as directed Dx: NIDDM/Polyneuropathy (E11.42), Hammertoe Foot Deformity (M20.41,M20.42), Preulcerative Skin Lesion(s) (L85.1 Not-Taking/PRN Extra Depth Orthopedic Shoes (1 Pair) with Customized Heat Molded Multidensity Innersoles (3 Pair) as directed Dx: NIDDM/Polyneuropathy (E11.42), Hammertoe Foot Deformity (M20.41,M20.42), Preulcerative Skin Lesion(s) (L85.1 Not-Taking/PRN Aspirin 81 MG Tablet Delayed Release 1 tablet Orally Once a day Not-Taking/PRN Finasteride 5 MG Tablet 1 tablet Orally Once a day Not-Taking/PRN Cyanocobalamin 1000 MCG Tablet 1 tablet Orally Once a day Medication List reviewed and reconciled with the patient * Allergies:?Iodine: hivesyes[ Allergies Verified] Objective: * Vitals:?Ht: 5ft 5in, Wt: 165 , BMI: 27.45, Shoe size: 9.5, BP: 120/70 mm Hg, BS: not taken, Ht-cm: 165.1 cm, Wt-k.84 kg. * ???Past Orders: ???Lab:HEMOGLOBIN A1C (GLYCO HEMOGLOBIN) (Order Date - 08/01/2024) (Collection Date & Time - 08/01/2024 08:59 AM) ? Value Reference Range ?HEMOGLOBIN A1C % (HH) 5.6 * Examination: ???Ophthalmology Referral: ?DIABETES EYE EXAM?Procedure Performed:?Yes ?Date of Exam Performed?01/30/2024 ?Findings of Diabetic Eye Exam:?no retinopathy?Neurological: ?SENSORY:? Neurological exam demonstrates, reduced light touch sensation, reduced sharp/dull discrimination, reduced vibration sensation .?Nails: ?NAILS are:?Elongated, overgrown, dystrophic, lytic, greater than 3mm thick, discolored and friable with crumbly malodorous subungual debris, with dull to no pain on palpation due to neuropathy, TA, T1, T2, T3, T4, T5, T6, T7, T8, T9.?Dermatologic: ?SKIN FINDINGS:?Skin exam reveals normal color, texture, elasticity, and turgor. There are no masses, nor excrescences. The interspaces are clear, B/L.?General Examination: ?GENERAL APPEARANCE:?Reveals a pleasant, alert, well nourished, well- developed, well hydrated individual, who demonstrates proper attention to hygiene/body habitus, and is in no acute distress, Pt serves as own historian for office visit today.?ORIENTED:?person, place, and time.?FOOT EXAM:?Lower Extremity Neurological Exam performed:?Yes ?Visual exam of foot performed:?Yes ?Date?11/07/2024 ?Footwear Evaluation?Footwear Evaluation performed:?Yes?Orthopedic: ?MUSCLE STRENGTH:?5/5 all groups in a symmetrical fashion, B/L.?DIGITAL DEFORMITIES:?Digital contracture, PIPJ, 2-5 B/L, incompl-reducible to push-up test, no over, nor underlapping,?there is?evidence of shoe producing skin irritation.?FOOTWEAR:?worn, non-supportive, shoe gear properties exacerbate patient's foot/toe deformity.? Assessment: * Assessment: 1.?Type 2 diabetes mellitus with diabetic polyneuropathy - E11.42???2.?Tinea unguium - B35.1???3.?Other hammer toe(s) (acquired), left foot - M20.42???Specify :Chronic problem, Worse (4),Rx Management (4)???4.?Other hammer toe(s) (acquired), right foot - M20.41 (Primary)???Specify :Chronic problem, Worse (4),Rx Management (4)??? Plan: * Treatment: * Procedures:?Debride Nail 6-10:?Nail debridement?Due to the clinical pathology outlined in the exam findings, performance of this nail treatment is medically necessary as its management by an unskilled/untrained nonprofessional would put this patients foot and overall health at risk. Therefore, debridement to affected nail(s), as described in exam ( TA, T1, T2, T3, T4, T5, T6, T7, T8, T9, ), was performed exclusively by the physician of record to reduce/remove overall nail length, girth, thickness, subungual debris, and necrotic tissue, by manual and/or electrical means through the use of a nail nipper and/or dremel-type jig grinder, to a more viable healthy nail plate or bed tissue 6- 10 nails in total. Silver nitrate was used for any petechial bleeding as necessary. Definitive antifungal treatment options, both pharmaceutical and surgical, have been reviewed and discussed with the patient. The patient solely prefers the use of intermittent/as needed professional debridement services for their nail condition and understands the need for additional periodic treatments to maintain effectiveness in symptomatic relief - 77066.? * Procedure Codes:?26338 DEBRI DE NAIL, 6 OR MORE, Modifiers: XS * Preventive Medicine:? ??Counseling:?Discussion:?-14: Office [...] Surgery:?Digital surgery was discussed with the patient, We elected to try conservative treatment at the present time, due to the patients medical history and increased asssociated post-operative risks.?Digital Treatment:?HT- I explained to the patient the [...] pair of custom heat-molded inserts was dispensed.? ??Screening/Special Tests:?Fall Risk?Screening:?No falls in the past year ?FALLS: Screening for Future Fall Risk?Have you had any falls with injury in the past year??No * Follow Up:?3 Months * Images: * Sign off status: Completed true * Provider:?Judit Brown DPM Date:?03/2025 Generated for Kiko suárez/Stefany/Deena on:?11/28/2024 07:44 AM EST History and Physical Notes * HPI (History of Present Illness) Category Sub-Category Detail Notes Category Not es Toe pain Location: B/L feet Duration: several years Course: worse Aggravated by: shoes, any pressure Treatments: change in shoes At Risk footcare Pt States Last PCP Visit: Date: 4 Examination Category Sub-Category Detail Notes Category Not es Neurological SENSORY: Neurological exa m demonstrates, reduced light touch sensation, reduced sharp/dull discrimination , reduced vibration sensation Dermatologic SKIN FINDINGS: Skin exam reveal s normal color, texture, elasticity, and turgor. There are no masses, nor excrescences. The interspaces are clear, B/L Orthopedic FOOTWEAR: worn, non-suppor tive, shoe gear properties exacerbate patient's foot/toe deformity DIGITAL DEFORMITIES: Digital contracture , PIPJ, 2-5 B/L, incompl-reducible to push-up test, no over, nor underlapping, there is evidence of shoe producing skin irritation MUSCLE STRENGTH: 5/5 all groups in a symmetrical fashion, B/L General Examination GENERAL APPEARANCE: Reveals a pleasant, alert, well nourished, well-developed, well hydrated individual, who demonstrates proper attention to hygiene/body habitus, and is in no acute distress, Pt serves as own historian for office visit today FOOT EXAM: Lower Extremity Neurological Exa m performed:: Yes Visual exam of foot performed:: Yes Date: 11/07/2024 ORIENTED: person, place, and t juanpablo Footwear Evaluation Footwear Evaluation performe d:: Yes Ophthalmology Referral DIABETES EYE EXAM Procedure Perform ed:: Yes ?Date of Exam Performed: 01/30/2024 Findings of Diabetic Eye Exam:: no retin opathy Nails NAILS are: Elongated, overg rown, dystrophic, lytic, greater than 3mm thick, discolored and friable with crumbly malodorous subungual debris, with dull to no pain on palpation due to neuropathy, TA, T1, T2, T3, T4, T5, T6, T7, T8, T9
--- OUTSIDE RECORDS SUMMARY | 2024-11-28 07:44 | XMS_ITS | Clinical Summary ---
Author Organization [facility], Address [address] [place] [address] Phone Care Team Providers Care Director Volunteer Services Name Role Phone Clarence Dos Santos NP Primary Care Provider [phone] Allergies Active Allergy Reactions Criticality Noted Date [...] complete this topic Insurance [place] Care Teams Director Volunteer Services Relationship Specialty Start Date End Date Clarence Dos Santos NP [place] [address] PCP - General Nurse Practitioner 10/17/19
--- OUTSIDE RECORDS SUMMARY | 2024-11-28 07:44 | XMS_ITS | Patient Health Record ---
Author Organization [facility] Address [address] [place] [phone] Care Team Providers Care Refrigeration Engineering Teacher Name Role Phone NIVIA MORRIS Primary Care Provider Romulo Lawrence [phone] ALLERGIES Allergen (clinical drug ingredient) Drug/Non Drug [...] Problem Colon cancer screening (Z12.11) Active confirmed 092181269 Problem Encounter for screening for malignant neoplasm of colon (Z12.11) Active confirmed 509649584 Problem History of adenomatous polyp of colon (Z86.010) Active confirmed 947332066 Problem Diverticulosis of large intestine without perforation or abscess without bleeding (K57.30) Active confirmed Diverticul ar disease of colon (251913615) Problem Preprocedural examination (Z01.818) Active confirmed [id number] Problem Long-term use of aspirin therapy (Z79.82) Active confirmed 239928275 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
--- OUTSIDE RECORDS SUMMARY | 2024-11-28 07:44 | XMS_ITS ---
Author Organization [facility] Address [address] [place] [address] Care Team Providers Care Legal Analyst Name Role Phone Clarence Costa Primary Care Provider Unav ailable Judit Brown Unavailable [phone] Allergies Allergen (clinical drug ingredient) Drug/Non Drug [...] 08/08/2024 Encounters Encounter Location Date Provider Diagnosis [facility] [place] [address] [place] [address] 08/08/2024 Judit Brown Ingrown nail L60.0 ; [...] Reason: Provider Name:Judit baumann, 02/04/2025 09:00:00 AM, [address] [place] [address], [phone], Procedure Notes * Category Sub-Category Detail Notes [...] Motrin was recommended for pain or discomfort (67684) Anesthesia 3cc of 1 percent Lid ocaine [...] as necessary. Patient chooses, no pharmaceutical tx (81942) Keratoma Treatment Parring or Cutting o f Benign Hyperkeratotic Lesion(s) 85007 (2-4 Lesions) - The Benign hyperkeratotic lesions, as described above were pared, and/or cut utilizing a sterile #15 blade, tissue nippers, and/or dremel Progress Notes * Jacob SNOW LeelaDOB:1945 ( 79 yo M)Acc No.[id number]:08/08/2024 Progress Note Patient:?Jacob Snow Provider:?Judit Brown DPM :1945???Age:79 Y???Sex:Male Robin e:08/08/2024 Address:[address] [place] [address] shahid [phone] Pcp:WM Kimbrough Subjective: * Chief Complaints: * [...] yes, Golf. ?Marital status: . 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 * Medications:?TakingBaby Aspi rin 81 mg Brimonidine [...] 7.1 * Examination: ???Ophthalmology Referral: ?DIABETES EYE EXAM?Procedure Performed:?Yes ?Date of Exam Performed?05/01/2024 ?Findings of Diabetic Eye Exam:?no retinopathy?Ingrown Nail: ?INSPECTION:?Reveals nail incurvation, pain on palpation, [...] , Medial plantar, TA, T5.?General Examination: ?FOOT EXAM:?Lower Extremity Neurological Exam performed:?Yes [...] as necessary. Patient chooses, no pharmaceutical tx (53744).?Keratoma Treatment:?Parring or Cutting of Benign Hyperkeratotic Lesion(s)?07226 (2-4 Lesions) - The Benign hyperkeratotic lesions, [...] Motrin was recommended for pain or discomfort (59368).? * Procedure Codes:?20798 DEBRI DE NAIL, 6 OR MORE, Modifiers: XS 40950 Avulsion Plate, Modifiers: XS 86845 TRIM SKIN LESIONS, 2 TO 4, Modifiers: XS * Follow Up:?3 Months * Images: * Sign off status: Completed true * Provider:?Judit Brown, ALEENA Date:?05/2024 Generated for Kiko suárez/Stefany/Deena on:?11/28/2024 07:44 AM [...]
--- OUTSIDE RECORDS SUMMARY | 2024-11-28 07:44 | XMS_ITS | Patient Health Record ---
Author Organization [facility] Address [address] [place] [address] Care Team Providers Care Monitoring Specialist Name Role Phone Clarence Costa Primary Care Provider Unav ailable Judit Brown Unavailable [phone] Allergies Allergen (clinical drug ingredient) Drug/Non Drug Allergy documented on EMR Reaction Allergy Type Onset Date Status Iodine hives Drug Allergy Active Results Component Value Reference Range Notes HEMOGLOBIN A1C (GLYCOHEMOGLO BIN) Reviewed date:11/07/2024 09:01:05 AM Interpretation: Performing Lab: Notes/Report: HEMOGLOBIN A1C % (HH) 5.6 HEMOGLOBIN A1C (GLYCOHEMOGLO BIN) Reviewed date:02/01/2024 09:26:00 AM Interpretation: Performing Lab: Notes/Report: HEMOGLOBIN A1C % (HH) 7.1 HEMOGLOBIN A1C (GLYCOHEMOGLO BIN) Reviewed date:05/09/2024 09:03:22 AM Interpretation: Performing Lab: Notes/Report: HEMOGLOBIN A1C % (HH) 6.5 Reason For Referral Diagnosis 1 Type 2 diabetes myrtle itus with diabetic polyneuropathy (E11.42) Diagnosis 2 Other hammer toe(s) (acquired), right foot (M20.41) Diagnosis 3 Other hammer toe(s) (acquired), left foot (M20.42) Diagnosis 4 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) Referring Provider First Name Clarence Referring Provider Last Name Raya Referred Organization [facility] Rafal Referred Provider Judit Brown Referred Address [address],[place], [place],[address],[place] Referred Provider Specialty Podiatry Referral Priority Routine [...] ry 12 hrs for 5 day(s) Not-Taking metFORMIN HCl 500 MG 1 tablet with a elsie l Orally twice a day Active Brimonidine Tartrate 0.15 % 1 drop into affected eye Ophthalmic every 8 hrs Active Baby Aspirin 81 Acti ve Extra Depth [...] the evening Ophthalmic Once a day Active Immunizations Vaccine Route Administration Date Status Comme nts COVID-19 Pfizer Bio[employer]Portaf[employer] Vaccine Unknown 07/16/2021 Administered 1st 12/13/2020 2nd 12/30/2020 Influenza Unknown 08/04/2019 Administered Influenza Unknown 07/16/2021 Administered Influenza Unknown 07/02/2023 Administered Social History Tobacco Use: Social History Observation Description Date Details (start date - stop date) Never Smoker NA - NA Alcohol Screen Question Answer Notes Did you [...] (Standard) Question Answer Notes Tobacco use: Nonsmoker Problems Problem Type SNOMED Code ICD Code Onset Dates Problem Status W/U Status Risk Notes Problem Acquired hammer toe of right foot (8854180930913063 ) Other hammer toe(s) (acquired), right foot (M20.41) Active confirmed Problem Acquired hammer toe of left foot (3372942499983004 ) Other hammer toe(s) (acquired), left foot (M20.42) Active confirmed Problem Polyneuropathy due to type 2 diabetes mellitus (632242302) Type 2 diabetes mellitus with diabetic polyneuropathy (E11.42) Active confirmed Problem 78006156 Osteoarthritis o f left ankle and foot (M19.072) Active confirmed Vital Signs Blood pressure diastolic 70 mm Hg 11/07/2024 Height 5ft 5in in 11/07/2024 Blood pressure systolic 120 mm Hg 11/07/2024 Weight 165 lbs 11/07/2024 BMI 27.45 kg/m2 11/07/2024 Encounters Encounter Location Date Provider Diagnosis [address] [address] 02/01/2024 Judit Brown Type 2 diabetes mellitus with diabetic polyneuropathy E11.42 ; Other hammer toe(s) (acquired), right foot M20.41 ; Tinea unguium B35.1 and Other hammer toe(s) (acquired), left foot M20.[address] [address] 05/09/2024 Judit Brown Type 2 diabetes mellitus with diabetic polyneuropathy E11.42 ; Other hammer toe(s) (acquired), right foot M20.41 ; Tinea unguium B35.1 and Other hammer toe(s) (acquired), left foot M20.[address] [address] 08/08/2024 Judit Kevin Ingrown nail L60.0 ; Type 2 diabetes mellitus with diabetic polyneuropathy E11.42 and Tinea unguium B35.[address] [address] 11/07/2024 Judit Brown Type 2 diabetes mellitus with diabetic polyneuropathy E11.42 ; Tinea unguium B35.1 ; Other hammer toe(s) (acquired), left foot M20.42 and Other hammer toe(s) (acquired), right foot M20.41 Assessments Encounter Date Diagnosis (ICD Code) Assessment Notes Treatment Notes Treatment Clinical Notes Section Notes 02/01/2024 Other hammer toe(s) (acquired), right foot (ICD-10 - M20.41) 02/01/2024 Type 2 diabetes mellitus with diabetic polyneuropathy (ICD-10 - E11.42) 05/09/2024 Type 2 diabetes mellitus with diabetic polyneuropathy (ICD-10 - E11.42) 08/08/2024 Type 2 diabetes mellitus with diabetic polyneuropathy (ICD-10 - E11.42) 08/08/2024 Ingrown nail (ICD-10 - L60.0) 11/07/2024 Type 2 diabetes mellitus with diabetic polyneuropathy (ICD-10 - E11.42) 11/07/2024 Tinea unguium (ICD-10 - B35.1) 08/08/2024 Tinea unguium (ICD-10 - B35.1) 05/09/2024 Other hammer toe(s) (acquired), right foot (ICD-10 - M20.41) 02/01/2024 Tinea unguium (ICD-10 - B35.1) 02/01/2024 Other hammer toe(s) (acquired), left foot (ICD-10 - M20.42) 05/09/2024 Tinea unguium (ICD-10 - B35.1) 11/07/2024 Other hammer toe(s) (acquired), left foot (ICD-10 - M20.42) 05/09/2024 Other hammer toe(s) (acquired), left foot (ICD-10 - M20.42) 11/07/2024 Other hammer toe(s) (acquired), right foot (ICD-10 - M20.41) Patient Educated with: DIABETIC FOOT CARE INSTRUCTIONS. pdf (DIABETIC FOOT CARE INSTRUCTIONS. pdf) Plan Of Treatment Next Appt Details Provider Name:Judit baumann, 02/04/2025 09:00:00 AM, [address] [place] [address], [phone], Insurance Providers Payer Name Payer Address Payer Phone Subscriber Number Group Number Insured Name Patient Relationship to Insured Coverage Start Date Coverage End Date [facility] [address] [place] [phone] [id number] Jacob Snow Self - patient is the insured Medical (General) History Medical History History ICD Code type 2 diabetes Arthritis Hypertension dyslipidemia Glaucoma polyarthralgia Hemorrhoids Diverticulosis tubular adenoma enlarged prostate actinic keratosis gilberts syndrome Cholelithiasis Nephrolithiasis Liver lesion, right lobe Reflux ( GERD) arthropathy Surgical History Surgery Date(Month/Year) cataracts 2011 umbilical hernia 1993 neck cyst removed 1993 cystoscopy fro kidney stone with stent r ight kidney 2012 colonoscopy 03/2012 biopsy of atrophied muscle left hip 2012 Carpal tunnel Surgery
[2024-11-28 10:24] LABS: MANUAL DIFF FLAG NO
[2024-11-28 10:33] LABS: Basophils Percent Auto 0.5 % (0-2); Eosinophils Absolute Auto 0.1 X10*3/uL (0.0-0.4); Eosinophils Percent Auto 2.2 % (0-4); Hematocrit 40.3 % (42.0-52.0); Hemoglobin 13.7 g/dl (14.0-18.0); Imm Gran Abs Auto 0.03 X10*3/uL (0.00-0.03); Imm Gran Pct Auto 0.5 % (0.0-0.4); Immature Retic Fraction 11.6 % (2.3-13.4); Lymphocytes Absolute Auto 1.2 X10*3/uL (1.2-4.9); Lymphocytes Percent Auto 21.9 % (20-40); Mean Corpuscular Hemoglobin 31.8 pg (27.0-33.0); Mean Corpuscular Volume 93.5 fL (80.0-98.0); Mean Platelet Volume 9.5 fL (9.4-12.4); Monocytes Absolute Auto 0.6 X10*3/uL (0.1-1.2); Monocytes Percent Auto 10.2 % (2-11); Neutrophils Absolute Auto 3.6 x10*3/uL (2.0-8.3); Neutrophils Percent Auto 64.7 % (45-73); Platelet Count 219 X10*3/uL (160-400); Red Blood Count 4.31 X10*6/uL (4.60-5.80); Retic HGB Equivalent 35.3 pg (30.0-35.0); Reticulocytes Absolute 0.042 X10*6/uL (0.026-0.095); White Blood Count 5.5 X10*3/uL (4.8-10.8)
[2024-11-28 10:36] LABS: Appearance Urine Clear; Color Urine Yellow; Glucose Urine UA Negative (Negative); Leukocyte Esterase Urine Negative (Negative); Nitrite Urine Negative (Negative); PH 5.5 (5.0-9.0); Urine Blood Negative (Negative); Urine Ketones Negative (Negative); Urine Protein Trace mg/dL (Neg-Trace)
[2024-11-28 10:50] LABS: Alanine Aminotransferase 12 U/L (0-40); Alkaline Phosphatase 74 U/L (39-117); Anion Gap 11 (12-20); Aspartate Amino Transferase 23 U/L (5-37); Bilirubin Total 2.6 mg/dL (0.0-1.0); Blood Urea Nitrogen 22 mg/dL (9-16); Calcium 9.4 mg/dL (8.4-10.2); Carbon Dioxide 25 mmol/L (22-29); Chloride 108 mmol/L (96-108); Cholesterol 139 mg/dL (<200); Estimated Glomerular Filt Rate > 60; Glucose Fasting 127 mg/dL (60-99); HDL Cholesterol 57 mg/dL (>40); Iron 79 mcg/dL (45-160); LDL Cholesterol Calculated 70 mg/dL (<100); Percent Iron Saturation 31 % (15-50); Potassium 4.1 mmol/L (3.3-5.1); Sodium 140 mmol/L (135-145); Total Iron Binding Capacity 254 mcg/dL (228-428); Total Protein 7.8 g/dL (6.5-8.0); Triglycerides 64 mg/dL (<150); Unsaturated Iron Binding 175 ug/dL
[2024-11-28 11:01] LABS: Ferritin 107 ng/mL (20-250); TSH reflex Free T4 2.81 uIU/mL (0.32-4.0)
[2024-11-28 11:07] LABS: Lactate Dehydrogenase 227 U/L (118-273)
[2024-11-28 11:13] LABS: Folate 8.2 ng/mL (> or = 4.0); Prostate Specific Antigen Scr 1.79 ng/mL (<0.05-4.0); Vitamin B12 178 pg/mL (200-900)
[2024-11-30 21:44] LABS: Prot Elec - Albumin 4.1 g/dL (3.8-4.8); Prot Elec - Alpha1 0.2 g/dL (0.2-0.3); Prot Elec - Alpha2 0.7 g/dL (0.5-0.9); Prot Elec - Beta 1 0.4 g/dL (0.4-0.6); Prot Elec - Beta 2 0.4 g/dL (0.2-0.5); Prot Elec - Gamma 1.4 g/dL (0.8-1.7); Prot Elec - Total Protein 7.2 g/dL (6.1-8.1)
[2024-12-02 09:42] LABS: IgA 284 mg/dL (70-320); IgG 1513 mg/dL (600-1540); IgM 133 mg/dL (50-300)
[2024-12-02 11:53] LABS: Hematocrit 40.5 % (38.5-50.0); Hemoglobin 13.8 g/dL (13.2-17.1); RBC 4.31 Million/uL (4.20-5.80); RDW 12.6 % (11.0-15.0)
== END 2024-11-28 07:41 | disposition home or self-care (01) ==
LOC: HO.HMGCLDS 07:40
PROVIDERS: PCP Nurse Practitioner Family; Visit Provider Nurse Practitioner Family
DX: E11.9 Type 2 diabetes mellitus without complications (principal); D64.9 Anemia, unspecified; R97.20 Elevated prostate specific antigen [PSA]; Z12.5 Encounter for screening for malignant neoplasm of prostate
CPT/HCPCS: 36415; 80053; 80061; 81003; 82607; 82728; 82746; 82784; 83020; 83540; 83615; 84153; 84165; 84443; 85014; 85018; 85025; 85041; 85045; 86334

== ENCOUNTER 2024-12-06 08:02 | Outpatient (REF) | payer MEDICARE, SELFPAY ==
--- OUTSIDE RECORDS SUMMARY | 2024-12-06 08:05 | XMS_ITS ---
Author Organization [facility] Address [address] [place] [address] Care Team Providers Care Computator Name Role Phone Claernce Costa Primary Care Provider Unav ailable Judit Brown Unavailable [phone] Allergies Allergen (clinical drug ingredient) Drug/Non Drug [...] 024 Encounters Encounter Location Date Provider Diagnosis [facility] [address] [address] 05/09/2024 Judit Brown Type 2 diabetes mellitus [...] Reason: Provider Name:Judit baumann, 02/04/2025 09:00:00 AM, [address] [place] [address], [phone], Procedure Notes * Category Sub-Category Detail Notes [...] as necessary. Patient chooses, no pharmaceutical tx (28326) Keratoma Treatment Parring or Cutting o f Benign Hyperkeratotic Lesion(s) 79750 (2-4 Lesions) - The Benign hyperkeratotic lesions, as described above were pared, and/or cut utilizing a sterile #15 blade, tissue nippers, and/or dremel Progress Notes * Jacob SNOWDOB:1945 ( 79 yo M)Acc No.[id number]:05/09/2024 Progress Note Patient:?Jacob Snow Provider:?Judit Brown DPM :1945???Age:79 Y???Sex:Male Robin e:05/09/2024 Address:[address] [place], [place] [id number] Pcp:WM Kimbrough Subjective: * Chief Complaints: * [...] yes, Golf. ?Marital status: . 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 * Medications:?TakingBaby Aspi rin 81 mg Brimonidine [...] as necessary. Patient chooses, no pharmaceutical tx (68141).?Keratoma Treatment:?Parring or Cutting of Benign Hyperkeratotic Lesion(s)?30773 (2-4 Lesions) - The Benign hyperkeratotic lesions, as described above were pared, and/or cut utilizing a sterile #15 blade, tissue nippers, and/or dremel.? * Procedure Codes:?79066 DEBRI DE NAIL, 6 OR MORE, Modifiers: XS 14245 TRIM SKIN LESIONS, 2 TO 4, Modifiers: [...] * Provider:?Judit Brown, DPM Date:?06/2024 Generated for Kiko suárez/Stefany/Deena on:?12/06/2024 08:04 AM EST History and Physical Notes * [...]
--- OUTSIDE RECORDS SUMMARY | 2024-12-06 08:05 | XMS_ITS | Patient Health Record ---
Author Organization [facility] Address [address] [place] [address] Care Team Providers Care Personal Banking Representative Name Role Phone Clarence Costa Primary Care Provider Unav ailable Judit Brown Unavailable [phone] Allergies Allergen (clinical drug ingredient) Drug/Non Drug [...] (HH) 7.1 HEMOGLOBIN A1C (GLYCOHEMOGLO BIN) Reviewed date:11/07/2024 09:01:05 AM Interpretation: Performing Lab: Notes/Report: HEMOGLOBIN A1C % (HH) 5.6 Reason For Referral Diagnosis 1 Type 2 diabetes myrtle itus with diabetic polyneuropathy (E11.42) Diagnosis 2 Other hammer toe(s) (acquired), right foot (M20.41) Diagnosis 3 Other hammer toe(s) (acquired), left foot (M20.42) Diagnosis 4 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) Referring Provider First Name Clarence Referring Provider Last Name Raya Referred Organization [facility] Rafal Referred Provider Judit Brown Referred Address [address],[place], [place],[address],[place] Referred Provider Specialty Podiatry Referral Priority Routine [...] Administration Date Status Comme nts COVID-19 Pfizer BioNTT[employer] Systems Vaccine Unknown 07/16/2021 Administered 1st 12/13/2020 2nd [...] Problem Acquired hammer toe of right foot (1802567567885676 ) Other hammer toe(s) (acquired), right foot (M20.41) Active confirmed Problem Acquired hammer toe of left foot (5569683944829612 ) Other hammer toe(s) (acquired), left foot (M20.42) Active confirmed Problem Polyneuropathy due to type 2 diabetes mellitus (042077807) Type 2 diabetes mellitus with diabetic polyneuropathy (E11.42) Active confirmed Problem 53971997 Osteoarthritis o f left ankle and foot (M19.072) Active confirmed Vital Signs Blood pressure diastolic 70 mm Hg 11/07/2024 Height 5ft 5in in 11/07/2024 Blood pressure systolic 120 mm Hg 11/07/2024 Weight 165 lbs 11/07/2024 BMI 27.45 kg/m2 11/07/2024 Encounters Encounter Location Date Provider Diagnosis [address] [address] 02/01/2024 Judit Brown Type 2 diabetes mellitus with diabetic polyneuropathy E11.42 ; Other hammer toe(s) (acquired), right foot M20.41 ; Tinea unguium B35.1 and Other hammer toe(s) (acquired), left foot M20.[address] [address] 05/09/2024 Judit Brown Type 2 diabetes mellitus with diabetic polyneuropathy E11.42 ; Other hammer toe(s) (acquired), right foot M20.41 ; Tinea unguium B35.1 and Other hammer toe(s) (acquired), left foot M20.[address] [address] 08/08/2024 Judit Kevin Ingrown nail L60.0 ; Type 2 diabetes mellitus with diabetic polyneuropathy E11.42 and Tinea unguium B35.[address] [address] 11/07/2024 Judit Brown Type 2 diabetes mellitus [...] Details Provider Name:Judit baumann, 02/04/2025 09:00:00 AM, [address] [place] [address], [phone], Insurance Providers Payer Name Payer Address Payer Phone Subscriber Number Group Number Insured Name Patient Relationship to Insured Coverage Start Date Coverage End Date [facility] [address] [place] [phone] [id number] Jacob Snow Self - patient is the [...]
--- OUTSIDE RECORDS SUMMARY | 2024-12-06 08:05 | XMS_ITS | Clinical Summary ---
Author Organization [facility], Address [address] [place] [address] Phone Care Team Providers Care Image Editor Name Role Phone Clarence Dos Santos NP Primary Care Provider [phone] Allergies Active Allergy Reactions Criticality Noted Date [...] complete this topic Insurance [place] Care Teams Image Editor Relationship Specialty Start Date End Date Clarence Dos Santos NP [facility] [place] [address] PCP - General Nurse Practitioner 10/17/19
--- OUTSIDE RECORDS SUMMARY | 2024-12-06 08:05 | XMS_ITS | Patient Health Record ---
Author Organization [facility] Address [address] [place] [address] Care Team Providers Care Mattress Filler Name Role Phone NIVIA MORRIS Primary Care Provider Romulo Lawrence [phone] Allergies Allergen (clinical drug ingredient) Drug/Non Drug Allergy documented on EMR Reaction Allergy Type Onset Date Status IV Contrast Dye (uncoded) Unknown Allergy Active Reason For Referral No Information Medications Medication SIG (Take, Route, Frequency, Duration) [...] ed eye Ophthalmic Once a day Active Immunizations Vaccine Route Administration Date Status Comme nts Influenza Unknown 11/03/2022 Refused Social History Alcohol Screen Question Answer Notes Did you [...] Never (0 point) Points 3 Interpretation Negative Section Notes: He stopped smoking over 20 y ears ago, and uses only occasional alcohol He stopped smoking over 20 y ears ago, and has a couple of drinks 2-3 times per week He stopped smoking over 20 y ears ago, and has a couple of drinks 2-3 times per week Problems Problem Type SNOMED Code ICD Code Onset Dates Problem Status W/U Status Risk Notes Problem 323749690 Colon cancer screening (Z12.11) Active confirmed Problem 619317943 Encounter for screening for malignant neoplasm of colon (Z12.11) Active confirmed Problem 707973201 History of adenomatous polyp of colon (Z86.010) Active confirmed Problem Diverticular disease of colon (811417566) Diverticulosis of large intestine without perforation or abscess without bleeding (K57.30) Active confirmed Problem 502899194636785 Preprocedural examination (Z01.818) Active confirmed Problem 840523293 Long-term use of aspirin therapy (Z79.82) Active confirmed Problem 08637716 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 [place] [phone] [id number] JAMI DODSON Self - patient is the insured Medical (General) History Medical History History ICD Code Hyperlipidemia Fatty liver---elevated Indir ect bilirubin since at least 1995--Gilbert's disease---other liver w/u was negative in 1995 Tubular adenomas of the colon removed in 2004 and 11/2011 Glaucoma Arthritis Denies CO,CVA,Lung disease,renal disease NIDDM Told of sleep apnea approx 1 0 years ago, but hasn't used the CPAP or nasal apparatus for > 2 years Hypertension Negative colonoscopy in 05/2017 Glaucoma Surgical History Surgery Date(Month/Year) Umbilical hernia surgery Left eye surgery and having future right eye surgery for glaucoma
--- OUTSIDE RECORDS SUMMARY | 2024-12-06 08:05 | XMS_ITS ---
Author Organization [facility] Address [address] [place] [address] Care Team Providers Care Post Hole Digger Name Role Phone Clarence Costa Primary Care Provider Unav ailable Judit Brown Unavailable [phone] Allergies Allergen (clinical drug ingredient) Drug/Non Drug [...] 025 Encounters Encounter Location Date Provider Diagnosis [facility] [place] [address] [place] [address] 11/07/2024 Judit Brown Type 2 diabetes mellitus [...] Provider Name:Judit baumann, 02/04/2025 09:00:00 AM, [address] [place], [address], Procedure Notes * Category Sub-Category Detail Notes [...] use of a nail nipper and/or dremel-type surface grinder tender, to a more viable healthy nail plate [...] to maintain effectiveness in symptomatic relief - 48930 Progress Notes * Jacob SNOWDOB:1945 ( 79 yo M)Acc No.[id number]:11/07/2024 Progress Note Patient:?Jacob SNOW Provider:?Judit Brown DPM :1945???Age:79 Y???Sex:Male Robin e:11/07/2024 Address:[address] [place], [place] [phone] Pcp:WM Kimbrough Subjective: * Chief Complaints: * [...] yes, Golf. ?Marital status: . 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 * Medications:?TakingBaby Aspi rin 81 mg Brimonidine [...] use of a nail nipper and/or dremel-type surface grinder tender, to a more viable healthy nail plate [...] to maintain effectiveness in symptomatic relief - 75955.? * Procedure Codes:?43031 DEBRI DE NAIL, 6 OR MORE, Modifiers: [...] Brown DPM Date:?03/2025 Generated for Kiko suárez/Stefany/Deena on:?12/06/2024 08:05 AM EST History and Physical Notes * [...]
--- OUTSIDE RECORDS SUMMARY | 2024-12-06 08:05 | XMS_ITS ---
Author Organization [facility] Address [address] [place] [address] Care Team Providers Care Education Coordinator Name Role Phone Clarence Costa Primary Care Provider Unav ailable Judit Brown Unavailable [phone] Allergies Allergen (clinical drug ingredient) Drug/Non Drug [...] 08/08/2024 Encounters Encounter Location Date Provider Diagnosis [facility] [place] [address] [place] [address] 08/08/2024 Judit Brown Ingrown nail L60.0 ; [...] Reason: Provider Name:Judit baumann, 02/04/2025 09:00:00 AM, [address] [place] [address], [phone], Procedure Notes * Category Sub-Category Detail Notes [...] Motrin was recommended for pain or discomfort (32663) Anesthesia 3cc of 1 percent Lid ocaine [...] as necessary. Patient chooses, no pharmaceutical tx (30558) Keratoma Treatment Parring or Cutting o f Benign Hyperkeratotic Lesion(s) 17681 (2-4 Lesions) - The Benign hyperkeratotic lesions, as described above were pared, and/or cut utilizing a sterile #15 blade, tissue nippers, and/or dremel Progress Notes * Jacob SNOW LeelaDOB:1945 ( 79 yo M)Acc No.[id number]:08/08/2024 Progress Note Patient:?Jacob Snow Provider:?Judit Brown DPM :1945???Age:79 Y???Sex:Male Robin e:08/08/2024 Address:[address] [place] [address] sh[place] O[place]-[id number] Pcp:WM Kimbrough Subjective: * Chief Complaints: * [...] yes, Golf. ?Marital status: . 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 * Medications:?TakingBaby Aspi rin 81 mg Brimonidine [...] as necessary. Patient chooses, no pharmaceutical tx (72101).?Keratoma Treatment:?Parring or Cutting of Benign Hyperkeratotic Lesion(s)?38589 (2-4 Lesions) - The Benign hyperkeratotic lesions, [...] Motrin was recommended for pain or discomfort (88082).? * Procedure Codes:?17786 DEBRI DE NAIL, 6 OR MORE, Modifiers: XS 69521 Avulsion Plate, Modifiers: XS 39394 TRIM SKIN LESIONS, 2 TO 4, Modifiers: XS * Follow Up:?3 Months * Images: * Sign off status: Completed true * Provider:?Judit Brown, ALEENA Date:?05/2024 Generated for Kiko suárez/Stefany/Deena on:?12/06/2024 08:05 AM [...]
[2024-12-06 12:47] LABS: Folate 9.1 ng/mL (> or = 4.0); Vitamin B12 212 pg/mL (200-900)
[2024-12-10 04:33] LABS: Intrinsic Factor Antibodies Negative (Negative)
[2024-12-10 13:33] LABS: Parietal Cell Antibody <=20.0 Unit (<=20.0)
== END 2024-12-06 08:03 | disposition home or self-care (01) ==
LOC: HO.HMGCLDS 08:02
PROVIDERS: PCP Nurse Practitioner Family; Visit Provider Nurse Practitioner Family
DX: R79.89 Other specified abnormal findings of blood chemistry (principal)
CPT/HCPCS: 36415; 82607; 82746; 83516; 86340

== ENCOUNTER 2025-01-20 09:17 | Outpatient (REF) | payer SELFPAY ==
--- NOTE | 2025-01-20 09:50 | MHC.AU.HA3 ---
Hearing Instrument Follow-Up- Binaural Date of Visit: 01/20/25 Right Ear: Make, Model, Color, Serial Number: Oticon 3 BTE PP, SN [id number] (donated by [employer] [employer]) Solar Project Coordination Specialist Repair Warranty: n/a Solar Project Coordination Specialist Loss and Damage Warranty: n/a [facility] Service Plan: n/a Battery Size: 13 Financial Compliance Manager/Slim Tube: #1 slimtube Earmold/Dome/CShell/SlimTip:6mm open dome (no retention tail) Type of Wax Guard: n/a Dispensed By: Date of Fitting: Left Ear: Make, Model, Color, Serial Number: Oticon 3 BTE PP, SN [id number] (donated by [facility]) Solar Project Coordination Specialist Repair Warranty: n/a Solar Project Coordination Specialist Loss and Damage Warranty: n/a [facility] Service Plan: n/a Battery Size: 13 Financial Compliance Manager/Slim Tube: #1 slimtube Earmold/Dome/CShell/SlimTip: 6mm open dome (no retention tail) Type of Wax Guard: n/a Dispensed By: Date of Fitting: Follow-Up Summary: Both aids dropped off weak . Found slim tubes occluded. Cleaned aids, replaced slim tubes and domes. Aids arrived with length 1 on left and 0 on right, replaced with same length as they were brought in despite being different than indicated in hearing aid details above. Listening check positive. Recommendations: Recommendations: Hearing instrument follow-up or maintenance as needed. Diagnosis Code(s): Primary Diagnosis: H90.3 Bilateral Sensorineural Hearing Loss Signature: Provider: Francesca Del Castillo, [facility]
--- OUTSIDE RECORDS SUMMARY | 2025-01-20 10:01 | XMS_ITS | Clinical Summary ---
Author Organization [facility], Address [address] [place] [address] Phone Care Team Providers Care Vp Revenue Cycle Name Role Phone Clarence Dos Santos NP Primary Care Provider [phone] Allergies Active Allergy Reactions Criticality Noted Date [...] Type 2 diabetes mellitus without complication Immunizations Immunization Administration Dates Next Due Pneumococcal Conjugate 13-Valent [...] Diabetes: Visual Foot Exam 09/15/2019 Pneumococcal Vaccine: 50+ Ye ars (2 of 2 - PPSV23) 09/04/2020 09/04/2019 Influenza Vaccine (Season Ended) 2025 Pneumococcal Vaccine: Peds ( 0 to 5 Years) and At-Risk Patients (6 to 49 Years) Discontinued 09/04/2019 Hepatitis B Vaccine Aged Out No longe r eligible based on patient's age to complete this topic Insurance [place] Care Teams Vp Revenue Cycle Relationship Specialty Start Date End Date Clarence Dos Santos NP [address] [place] [address] PCP - General Nurse Practitioner 10/17/19
--- OUTSIDE RECORDS SUMMARY | 2025-01-20 10:01 | XMS_ITS ---
Author Organization [facility] Address [address] [place] [address] Care Team Providers Care Software Technician Name Role Phone Clarence Costa Primary Care Provider Unav ailable Judit Brown Unavailable [phone] Allergies Allergen (clinical drug ingredient) Drug/Non Drug [...] 024 Encounters Encounter Location Date Provider Diagnosis [facility] [address] [address] 05/09/2024 Judit Brown Type 2 diabetes mellitus [...] Reason: Provider Name:Judit baumann, 02/04/2025 09:00:00 AM, [address] [place] [address], [phone], Procedure Notes * Category Sub-Category Detail Notes [...] as necessary. Patient chooses, no pharmaceutical tx (66764) Keratoma Treatment Parring or Cutting o f Benign Hyperkeratotic Lesion(s) 54554 (2-4 Lesions) - The Benign hyperkeratotic lesions, as described above were pared, and/or cut utilizing a sterile #15 blade, tissue nippers, and/or dremel Progress Notes * Jacob SNOWDOB:1945 ( 79 yo M)Acc No.[id number]:05/09/2024 Progress Note Patient:?Jacob Snow Provider:?Judit Brown DPM :1945???Age:79 Y???Sex:Male Robin e:05/09/2024 Address:[address] [place], [place] [id number] Pcp:WM Kimbrough Subjective: * Chief Complaints: * [...] yes, Golf. ?Marital status: . 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 * Medications:?TakingBaby Aspi rin 81 mg Brimonidine [...] as necessary. Patient chooses, no pharmaceutical tx (03823).?Keratoma Treatment:?Parring or Cutting of Benign Hyperkeratotic Lesion(s)?86670 (2-4 Lesions) - The Benign hyperkeratotic lesions, as described above were pared, and/or cut utilizing a sterile #15 blade, tissue nippers, and/or dremel.? * Procedure Codes:?40251 DEBRI DE NAIL, 6 OR MORE, Modifiers: XS 36084 TRIM SKIN LESIONS, 2 TO 4, Modifiers: [...] Brown, DPM Date:?06/2024 Generated for Kiko suárez/Stefany/Deena on:?01/20/2025 10:01 AM EDT History and Physical Notes * HPI (History [...] at, , Medial plantar, TA, T5 Orthopedic FOOTWEAR EVALUATION: fair condit ion, OT were inspected and noted to be [...]
--- OUTSIDE RECORDS SUMMARY | 2025-01-20 10:01 | XMS_ITS | Patient Health Record ---
Author Organization [facility] Address [address] [place] [address] Care Team Providers Care Brush Fabrication Supervisor Name Role Phone NIVIA MORRIS Primary Care Provider Romulo Lawrence [phone] Allergies Allergen (clinical drug ingredient) Drug/Non Drug [...] Problem Status W/U Status Risk Notes Problem 899710774 Colon cancer screening (Z12.11) Active confirmed Problem 262255279 Encounter for screening for malignant neoplasm of colon (Z12.11) Active confirmed Problem 777268332 History of adenomatous polyp of colon (Z86.010) Active confirmed Problem Diverticular disease of colon (020131370) Diverticulosis of large intestine without perforation or abscess without bleeding (K57.30) Active confirmed Problem 230272842603162 Preprocedural examination (Z01.818) Active confirmed Problem 812835029 Long-term use of aspirin therapy (Z79.82) Active confirmed Problem 21034720 [place] disease (E80.4) Active confirmed Plan Of Treatment Future Test Test Name Order Date COLONOSCOPY 09/12/2011 COLONOSCOPY 02/07/2017 COLONOSCOPY 11/03/2022 Insurance Providers Payer Name Payer Address Payer Phone Subscriber Number Group Number Insured Name Patient Relationship to Insured Coverage Start Date Coverage End Date [place] [employer] [facility] [address] [place] [address] [id number] JAMI DODSON Self - patient is the insured Medical (General) History Medical History History ICD Code Hyperlipidemia Fatty liver---elevated Indir ect bilirubin since at least 1995--Gilbert's disease---other liver w/u was negative in 1995 Tubular adenomas of the colon removed in 2004 and 11/[address],CVA,Lung disease,renal disease NIDDM Told of sleep apnea approx 1 0 years ago, but hasn't used the CPAP or nasal apparatus for > 2 years Hypertension Negative colonoscopy in 05/2017 Glaucoma Surgical History Surgery Date(Month/Year) Umbilical hernia surgery Left eye surgery and having future right eye surgery for glaucoma
--- OUTSIDE RECORDS SUMMARY | 2025-01-20 10:01 | XMS_ITS ---
Author Organization [facility] Address [address] [place] [address] Care Team Providers Care Coupon Redemption Clerk Name Role Phone Clarence Costa Primary Care Provider Unav ailable Judit Brown Unavailable [phone] Allergies Allergen (clinical drug ingredient) Drug/Non Drug [...] 025 Encounters Encounter Location Date Provider Diagnosis [facility] [place] [address] [place] [address] 11/07/2024 Judit Brown Type 2 diabetes mellitus [...] Provider Name:Judit baumann, 02/04/2025 09:00:00 AM, [address] [place], [address], Procedure Notes * Category Sub-Category Detail Notes [...] use of a nail nipper and/or dremel-type flute grinder, to a more viable healthy nail [...] to maintain effectiveness in symptomatic relief - 88065 Progress Notes * Jacob SNOWDOB:1945 ( 79 yo M)Acc No.[id number]:11/07/2024 Progress Note Patient:?Jacob SNOW Provider:?Judit Brown DPM :1945???Age:79 Y???Sex:Male Robin e:11/07/2024 Address:[address] [place], [place] [address] Pcp:WM Kimbrough Subjective: * Chief Complaints: * [...] yes, Golf. ?Marital status: . 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 * Medications:?TakingBaby Aspi rin 81 mg Brimonidine [...] use of a nail nipper and/or dremel-type flute grinder, to a more viable healthy nail [...] to maintain effectiveness in symptomatic relief - [address]41.? * Procedure Codes:?83742 DEBRI DE NAIL, 6 OR MORE, Modifiers: [...] Provider:?Judit Brown DPM Date:?03/2025 Generated for Kiko suárez/Stefany/Sandrasmfidelia on:?01/20/2025 10:01 AM EDT History and Physical [...] excrescences. The interspaces are clear, B/L Orthopedic FOOTWEAR EVALUATION: worn, non-s upportive, shoe gear properties exacerbate patient's foot/toe deformity [...]
--- OUTSIDE RECORDS SUMMARY | 2025-01-20 10:01 | XMS_ITS ---
Author Organization [facility] Address [address] [place] [address] Care Team Providers Care Research Consultant Name Role Phone Clarence Costa Primary Care Provider Unav ailable Judit Brown Unavailable [phone] Allergies Allergen (clinical drug ingredient) Drug/Non Drug [...] 08/08/2024 Encounters Encounter Location Date Provider Diagnosis [facility] [address] [place] [address] 08/08/2024 Judit Brown Ingrown nail L60.0 ; [...] Reason: Provider Name:Judit baumann, 02/04/2025 09:00:00 AM, [address] [place] [address], [phone], Procedure Notes * Category Sub-Category Detail Notes [...] Motrin was recommended for pain or discomfort (41522) Anesthesia 3cc of 1 percent Lid ocaine [...] as necessary. Patient chooses, no pharmaceutical tx (94542) Keratoma Treatment Parring or Cutting o f Benign Hyperkeratotic Lesion(s) 80118 (2-4 Lesions) - The Benign hyperkeratotic lesions, as described above were pared, and/or cut utilizing a sterile #15 blade, tissue nippers, and/or dremel Progress Notes * Jacob SONW LeelaDOB:1945 ( 79 yo M)Acc No.[id number]:08/08/2024 Progress Note Patient:?Jacob Snow Provider:?Judit Brown DPM :1945???Age:79 Y???Sex:Male Robin e:08/08/2024 Address:[address] [place] [address] shahid [id number] Pcp:WM Kimbrough Subjective: * Chief Complaints: * [...] yes, Golf. ?Marital status: . 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 * Medications:?TakingBaby Aspi rin 81 mg Brimonidine [...] as necessary. Patient chooses, no pharmaceutical tx (63812).?Keratoma Treatment:?Parring or Cutting of Benign Hyperkeratotic Lesion(s)?78214 (2-4 Lesions) - The Benign hyperkeratotic lesions, [...] Motrin was recommended for pain or discomfort (64472).? * Procedure Codes:?01422 DEBRI DE NAIL, 6 OR MORE, Modifiers: XS 79282 Avulsion Plate, Modifiers: XS 87446 TRIM SKIN LESIONS, 2 TO 4, Modifiers: XS * Follow Up:?3 Months * Images: * Sign off status: Completed true * Provider:?Judit Brown, DPCarlos Date:?05/2024 Generated for Kiko suárez/Stefany/Deena on:?01/20/2025 10:01 AM [...]
--- OUTSIDE RECORDS SUMMARY | 2025-01-20 10:01 | XMS_ITS | Patient Health Record ---
[facility] Address [address] [place] [address] Care Team Providers Care Consulting Project Director Name Role Phone Clarence Costa Primary Care Provider Unav ailable Judit Brown Unavailable [phone] Allergies Allergen (clinical drug ingredient) Drug/Non Drug Allergy documented on EMR Reaction Allergy Type Onset Date Status Iodine hives Drug Allergy Active Results Component Value Reference Range Notes HEMOGLOBIN A1C (GLYCOHEMOGLO BIN) Reviewed date:05/09/2024 09:03:22 AM Interpretation: Performing Lab: Notes/Report: HEMOGLOBIN A1C % (HH) 6.5 HEMOGLOBIN A1C (GLYCOHEMOGLO BIN) Reviewed date:11/07/2024 09:01:05 [...] Referring Provider Last Name Raya Referred Organization [facility] Rafal Referred Provider Judit Brown Referred Address [address],[place], [place],[address],[place] Referred Provider Specialty Podiatry Referral Priority Routine [...] Administration Date Status Comme nts COVID-19 Pfizer BioNTSeeqpod Vaccine Unknown 07/16/2021 Administered 1st 12/13/2020 2nd [...] Problem Acquired hammer toe of right foot (9566143691736691 ) Other hammer toe(s) (acquired), right foot (M20.41) Active confirmed Problem Acquired hammer toe of left foot (4267483612366939 ) Other hammer toe(s) (acquired), left foot (M20.42) Active confirmed Problem Polyneuropathy due to type 2 diabetes mellitus (883296426) Type 2 diabetes mellitus with diabetic polyneuropathy (E11.42) Active confirmed Problem 83357113 Osteoarthritis o f left ankle and foot (M19.072) Active confirmed Vital Signs Blood pressure diastolic 70 mm Hg 11/07/2024 Height 5ft 5in in 11/07/2024 Blood pressure systolic 120 mm Hg 11/07/2024 Weight 165 lbs 11/07/2024 BMI 27.45 kg/m2 11/07/2024 Encounters Encounter Location Date Provider Diagnosis [address] [address] 02/01/2024 Judit Brown Type 2 diabetes mellitus with diabetic polyneuropathy E11.42 ; Other hammer toe(s) (acquired), right foot M20.41 ; Tinea unguium B35.1 and Other hammer toe(s) (acquired), left foot M20.[address] [address] 05/09/2024 Judit Brown Type 2 diabetes mellitus with diabetic polyneuropathy E11.42 ; Other hammer toe(s) (acquired), right foot M20.41 ; Tinea unguium B35.1 and Other hammer toe(s) (acquired), left foot M20.[address] [address] 08/08/2024 Judit Kevin Ingrown nail L60.0 ; Type 2 diabetes mellitus with diabetic polyneuropathy E11.42 and Tinea unguium B35.[address] [address] 11/07/2024 Judit Brown Type 2 diabetes mellitus [...] Details Provider Name:Judit baumann, 02/04/2025 09:00:00 AM, [address] [place] [address], [phone], Insurance Providers Payer Name Payer Address Payer Phone Subscriber Number Group Number Insured Name Patient Relationship to Insured Coverage Start Date Coverage End Date [facility] [address] [place] [phone] [id number] Jacob Snow Self - patient is the [...]
== END 2025-01-20 09:18 | disposition home or self-care (01) ==
LOC: HO.HAP 09:17
PROVIDERS: Visit Provider Nurse Practitioner Family
DX: Z13.89 Encounter for screening for other disorder (principal)

== ENCOUNTER 2025-01-23 13:40 | Outpatient (REF) | payer SELFPAY ==
--- OUTSIDE RECORDS SUMMARY | 2025-01-23 14:25 | XMS_ITS ---
Author Organization [facility] Address [address] [place] [address] Care Team Providers Care Element Burner Name Role Phone Clarence Costa Primary Care Provider Unav ailable Judit Brown Unavailable [phone] Allergies Allergen (clinical drug ingredient) Drug/Non Drug [...] 024 Encounters Encounter Location Date Provider Diagnosis [facility] [address] [address] 05/09/2024 Judit Brown Type 2 diabetes mellitus [...] Reason: Provider Name:Judit baumann, 02/04/2025 09:00:00 AM, [address] [place] [address], [address], Procedure Notes * Category Sub-Category Detail Notes [...] as necessary. Patient chooses, no pharmaceutical tx (75700) Keratoma Treatment Parring or Cutting o f Benign Hyperkeratotic Lesion(s) 31125 (2-4 Lesions) - The Benign hyperkeratotic lesions, as described above were pared, and/or cut utilizing a sterile #15 blade, tissue nippers, and/or dremel Progress Notes * Jacob SNOWDOB:1945 ( 79 yo M)Acc No.[id number]:05/09/2024 Progress Note Patient:?Jacob Snow Provider:?Judit Brown DPM :1945???Age:79 Y???Sex:Male Robin e:05/09/2024 Address:[address] [place], [place] [address] Pcp:WM Kimbrough Subjective: * Chief Complaints: * [...] yes, Golf. ?Marital status: . 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 * Medications:?TakingBaby Aspi rin 81 mg Brimonidine [...] as necessary. Patient chooses, no pharmaceutical tx (50861).?Keratoma Treatment:?Parring or Cutting of Benign Hyperkeratotic Lesion(s)?41547 (2-4 Lesions) - The Benign hyperkeratotic lesions, as described above were pared, and/or cut utilizing a sterile #15 blade, tissue nippers, and/or dremel.? * Procedure Codes:?32639 DEBRI DE NAIL, 6 OR MORE, Modifiers: XS 11347 TRIM SKIN LESIONS, 2 TO 4, Modifiers: [...] Brown, DPM Date:?06/2024 Generated for Kiko suárez/Stefany/Deena on:?01/23/2025 02:24 PM EDT History and Physical Notes * HPI [...]
--- OUTSIDE RECORDS SUMMARY | 2025-01-23 14:25 | XMS_ITS | Clinical Summary ---
Author Organization [facility], Address [address] [place] [address] Phone Care Team Providers Care Re Etcher Name Role Phone Clarence Dos Santos NP Primary Care Provider [phone] Allergies Active Allergy Reactions Criticality Noted Date [...] patient's age to complete this topic Insurance [place] Care Teams Re Etcher Relationship Specialty Start Date End Date Clarence Dos Santos NP [address] [place] [address] PCP - General Nurse Practitioner 10/17/19
--- OUTSIDE RECORDS SUMMARY | 2025-01-23 14:25 | XMS_ITS ---
Author Organization [facility] Address [address] [place] [address] Care Team Providers Care Bit And Shank Department Supervisor Name Role Phone Clarence Costa Primary Care Provider Unav ailable Judit Brown Unavailable [phone] Allergies Allergen (clinical drug ingredient) Drug/Non Drug [...] 08/08/2024 Encounters Encounter Location Date Provider Diagnosis [facility] [place] [address] [place] [address] 08/08/2024 Judit Brown Ingrown nail L60.0 ; [...] Reason: Provider Name:Judit baumann, 02/04/2025 09:00:00 AM, [address] [place] [address], [address], Procedure Notes * Category Sub-Category Detail Notes [...] Motrin was recommended for pain or discomfort (50510) Anesthesia 3cc of 1 percent Lid ocaine [...] as necessary. Patient chooses, no pharmaceutical tx (77388) Keratoma Treatment Parring or Cutting o f Benign Hyperkeratotic Lesion(s) 41975 (2-4 Lesions) - The Benign hyperkeratotic lesions, as described above were pared, and/or cut utilizing a sterile #15 blade, tissue nippers, and/or dremel Progress Notes * Jacob SNOW LeelaDOB:1945 ( 79 yo M)Acc No.[id number]:08/08/2024 Progress Note Patient:?Jacob Snow Provider:?Judit Brown DPM :1945???Age:79 Y???Sex:Male Robin e:08/08/2024 Address:[address] [place] [address] [place]id [id number] Pcp:WM Kimbrough Subjective: * Chief Complaints: * [...] yes, Golf. ?Marital status: . 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 * Medications:?TakingBaby Aspi rin 81 mg [...] as necessary. Patient chooses, no pharmaceutical tx (70246).?Keratoma Treatment:?Parring or Cutting of Benign Hyperkeratotic Lesion(s)?57367 (2-4 Lesions) - The Benign hyperkeratotic lesions, [...] Motrin was recommended for pain or discomfort (09916).? * Procedure Codes:?00114 DEBRI DE NAIL, 6 OR MORE, Modifiers: XS 75782 Avulsion Plate, Modifiers: XS 08074 TRIM SKIN LESIONS, 2 TO 4, Modifiers: XS * Follow Up:?3 Months * Images: * Sign off status: Completed true * Provider:?Judit Brown, DPCarlos Date:?05/2024 Generated for Kiko suárez/Stefany/Deena on:?01/23/2025 02:24 PM [...]
--- OUTSIDE RECORDS SUMMARY | 2025-01-23 14:25 | XMS_ITS ---
Author Organization [facility] Address [address] [place] [address] Care Team Providers Care National Stormwater Leader Name Role Phone Clarence Costa Primary Care Provider Unav ailable Judit Brown Unavailable [phone] Allergies Allergen (clinical drug ingredient) Drug/Non Drug [...] 025 Encounters Encounter Location Date Provider Diagnosis [facility] [place] [address] [place] [address] 11/07/2024 Judit Brown Type 2 diabetes mellitus [...] Provider Name:Judit baumann, 02/04/2025 09:00:00 AM, [address] [place], [address], Procedure Notes * Category Sub-Category Detail Notes [...] use of a nail nipper and/or dremel-type concrete grinder operator, to a more viable healthy nail plate [...] to maintain effectiveness in symptomatic relief - 76828 Progress Notes * Jacob SNOWDOB:1945 ( 79 yo M)Acc No.[id number]:11/07/2024 Progress Note Patient:?Jacob SNOW Provider:?Judit Brown DPM :1945???Age:79 Y???Sex:Male Robin e:11/07/2024 Address:[address] [place], [place] [address] Pcp:WM Kimbrough Subjective: * Chief Complaints: * [...] Golf. ?Marital status: . 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 * Medications:?TakingBaby Aspi rin 81 mg Brimonidine [...] use of a nail nipper and/or dremel-type concrete grinder operator, to a more viable healthy nail plate [...] to maintain effectiveness in symptomatic relief - 58259.? * Procedure Codes:?91357 DEBRI DE NAIL, 6 OR MORE, Modifiers: [...] Brown DPM Date:?03/2025 Generated for Kiko suárez/Stefany/Deena on:?01/23/2025 02:24 PM [...]
--- OUTSIDE RECORDS SUMMARY | 2025-01-23 14:25 | XMS_ITS | Patient Health Record ---
[facility] Address [address] [place] [address] Care Team Providers Care Tableau Lead Name Role Phone Clarence Costa Primary Care Provider Unav ailable Judit Brown Unavailable [phone] Allergies Allergen (clinical drug ingredient) Drug/Non Drug [...] Referring Provider Last Name Raya Referred Organization [facility] Rafal Referred Provider Judit Brown Referred Address [address],[place], [place],[address],[place] Referred Provider Specialty Podiatry Referral Priority Routine [...] Administration Date Status Comme nts COVID-19 Pfizer BioNTCalient Technologies Vaccine Unknown 07/16/2021 Administered 1st 12/13/2020 2nd [...] Problem Acquired hammer toe of right foot (4685455262822089 ) Other hammer toe(s) (acquired), right foot (M20.41) Active confirmed Problem Acquired hammer toe of left foot (2296275707231408 ) Other hammer toe(s) (acquired), left foot (M20.42) Active confirmed Problem Polyneuropathy due to type 2 diabetes mellitus (257872608) Type 2 diabetes mellitus with diabetic polyneuropathy (E11.42) Active confirmed Problem 01767092 Osteoarthritis o f left ankle and foot (M19.072) Active confirmed Vital Signs Blood pressure diastolic 70 mm Hg 11/07/2024 Height 5ft 5in in 11/07/2024 Blood pressure systolic 120 mm Hg 11/07/2024 Weight 165 lbs 11/07/2024 BMI 27.45 kg/m2 11/07/2024 Encounters Encounter Location Date Provider Diagnosis [address] [address] 02/01/2024 Judit Brown Type 2 diabetes mellitus with diabetic polyneuropathy E11.42 ; Other hammer toe(s) (acquired), right foot M20.41 ; Tinea unguium B35.1 and Other hammer toe(s) (acquired), left foot M20.[address] [address] 05/09/2024 Judit Brown Type 2 diabetes mellitus with diabetic polyneuropathy E11.42 ; Other hammer toe(s) (acquired), right foot M20.41 ; Tinea unguium B35.1 and Other hammer toe(s) (acquired), left foot M20.[address] [address] 08/08/2024 Judit Kevin Ingrown nail L60.0 ; Type 2 diabetes mellitus with diabetic polyneuropathy E11.42 and Tinea unguium B35.[address] [address] 11/07/2024 Judit Brown Type 2 diabetes mellitus [...] Details Provider Name:Judit baumann, 02/04/2025 09:00:00 AM, [address] [place] [address], [phone], Insurance Providers Payer Name Payer Address Payer Phone Subscriber Number Group Number Insured Name Patient Relationship to Insured Coverage Start Date Coverage End Date [facility] [address] [place] [phone] [id number] Jacob Snow Self - patient is the [...]
== END 2025-01-23 13:41 | disposition home or self-care (01) ==
LOC: HO.HAP 13:40
PROVIDERS: Visit Provider Nurse Practitioner Family
DX: Z46.1 Encounter for fitting and adjustment of hearing aid (principal); H90.3 Sensorineural hearing loss, bilateral
CPT/HCPCS: 92593

== ENCOUNTER 2025-03-12 08:00 | Outpatient (REF) | payer SELFPAY ==
--- OUTSIDE RECORDS SUMMARY | 2025-03-12 08:03 | XMS_ITS ---
Author Organization [facility] Address [address] [place] [address] Care Team Providers Care Wet Sander Name Role Phone Clarence Costa Primary Care Provider Unav ailable Rebecapastor Judit Unavailable [phone] Allergies Allergen (clinical drug ingredient) Drug/Non Drug [...] ve Encounters Encounter Location Date Provider Diagnosis [place] [facility] [address] 02/05/2025 Judit Brown Plan Of Treatment No Information Progress Notes * Jacob SNOWDOB:1945 ( 80 yo M)Acc No.[id number]:02/05/2025 Progress Note Patient:Jacob EVANS Provider:?Judit Brown DPM :1945???Age:79 Y???Sex:Male Robin e:02/05/2025 Address:[address] [place], [place] [id number] Pcp:WM Kimbrough Subjective: * Chief Complaints: * ??? * Medical History:?Type 2 diab etes, Arthritis, Hypertension, Dyslipidemia, Glaucoma, Polyarthralgia, Hemorrhoids, Diverticulosis, Tubular adenoma, Enlarged prostate, Actinic keratosis, [place]urgeon syndrome, Cholelithiasis, Nephrolithiasis, Liver lesion, right lobe, Reflux ( GERD), Arthropathy. * Medications:?Taking Baby Asp irin 81 mg , Taking Brimonidine Tartrate 0.15 [...] Lesion(s) (L85.1 , Not-Taking/PRN Vitamin B12 , Not- Taking/PRN Cephalexin 500 MG Capsule 1 capsule Orally [...] tablet Orally Once a day , Not-Taking/PRN Cyanocobalamin 1000 MCG Tablet 1 tablet Orally Once a day * Allergies:?Iodine: hives. Objective: * Vitals:? Assessment: Plan: * Treatment: * Images: * The named appointment provid er may or may not be the originator of this progress note, and it is not deemed complete until electronically signed by the appointment provider. Sign off status: Pending * Provider:?Judit Brown DPM Date:?05/2025 Generated for Kiko suárez/Stefany/Deena on:?03/12/2025 08:03 AM EDT
--- NOTE | 2025-03-12 11:18 | MHC.AU.HA3 ---
Hearing Instrument Follow-Up- Binaural Date of Visit: 03/12/25 Right Ear: Make, Model, Color, Serial Number: Oticon OPN 3 BTE PP SN: [id number] (donated by CSR) Bobbin Stripper Repair Warranty: N/A Bobbin Stripper Loss and Damage Warranty: N/A [facility] Service Plan: N/A Battery Size: 13 Painter Ski Edge/Slim Tube: #0 slimtube Earmold/Dome/CShell/SlimTip:6mm open dome (no retention tail) Type of Wax Guard: N/A Dispensed By: [facility] Left Ear: Make, Model, Color, Serial Number: Oticon OPN 3 BTE PP SN: [id number] (donated by CSR) Bobbin Stripper Repair Warranty: N/A Bobbin Stripper Loss and Damage Warranty: N/A [facility] Service Plan: N/A Battery Size: 13 Painter Ski Edge/Slim Tube: #1 slimtube Earmold/Dome/CShell/SlimTip: 6mm open dome (no retention tail) Type of Wax Guard: N/A Dispensed By: [facility] Follow-Up Summary: HAs dropped off - left [place] wet. Moisture noted in slim tube. Cleaned both HAs. Replaced slim tubes and domes. Ran through dehumidifier 2x. Vacuumed microphones. Listening check demonstrated HAs amplifying clearly. To front office for fruit picker machine operator. Recommendations: Please contact our clinic with any questions or concerns. Diagnosis Code(s): Primary Diagnosis: H90.3 Bilateral Sensorineural Hearing Loss Signature: Provider: Francesca Sarah, [facility]
== END 2025-03-12 08:01 | disposition home or self-care (01) ==
LOC: HO.SH 08:00
PROVIDERS: Visit Provider Nurse Practitioner Family
DX: Z01.118 Encounter for examination of ears and hearing with other abnormal findings (principal); H90.3 Sensorineural hearing loss, bilateral
CPT/HCPCS: 92593

== ENCOUNTER 2025-03-24 07:57 | Outpatient (AMB) | payer MEDICARE, SELFPAY ==
--- OUTSIDE RECORDS SUMMARY | 2025-02-05 11:15 | XMS_ITS ---
Author Organization [facility] Address [address] [place] [address] Care Team Providers Care Building And Construction Manager Name Role Phone Clarence Costa Primary Care Provider Unav ailable Rebecapastor Judit Unavailable [phone] Allergies Allergen (clinical drug ingredient) Drug/Non Drug [...] ry 12 hrs for 5 day(s) Not-Taking Vitamin B12 Not-Taki ng [...] Acti ve Encounters Encounter Location Date Provider Diagnosis [facility] [address] 02/05/2025 Judit Brown Plan Of Treatment No Information Progress Notes * Jaocb SNOWDOB:1945 ( 80 yo M)Acc No.[id number]:02/05/2025 Progress Note Patient: Jacob MCKEON Provider: Moustapha Brown DPM :1945 A ge:79 Y S ex:Male Date:02/05/2025 Address:[address] [place] [address], [id number] Pcp:WM Kimbrough Subjective: * Chief Complaints: * * Medical History: T ype 2 diabetes, Arthritis, Hypertension, Dyslipidemia, Glaucoma, Polyarthralgia, Hemorrhoids, Diverticulosis, Tubular adenoma, Enlarged prostate, Actinic keratosis, [place] syndrome, Cholelithiasis, Nephrolithiasis, Liver lesion, right lobe, [...] 02/05/2025 Generated for Kiko suárez/Stefany/Deena on: 0 03/24/2025 08:01 AM EDT
--- NOTE | 2025-03-24 07:59 | MHC.PC.OV ---
Vital Signs 03/24/25 08:04 Height 5 ft 5 in Weight 164 lb BMI 27.3 BP 136/60 Blood Pressure Location Rt brachial Position Sitting Respiration 16 Pulse 84 Pulse Source Pulse Oximeter Temp 97.8 F Temp Source Oral Pulse Oximetry (%) 98 Oxygen Delivery Method Room Air Intake Visit Reasons: 4m follow up Intake Note: Pt is here today for his 4mo. f/u Allergies Iodinated Contrast Media (IV DYE, IODINE CONTAINING CONTRAST ) Allergy (Mild, Verified 03/24/25 08:36) HIVES Medication List - Last Reconciled 03/24/25 by EFREM Zepeda- acetaminophen ER (Tylenol Arthritis Pain) 650 mg PO Q12H PRN aspirin 81 mg PO DAILY brimonidine 0.15% drps ophthalmic (eye) latanoprost 0.005% 1 drp ophthalmic (eye) BEDTIME lisinopril 10 mg PO DAILY metformin 500 mg PO BID 90 days sildenafil 100 mg PO DAILY PRN simvastatin 40 mg PO BEDTIME timolol maleate 0.5% 1 drp ophthalmic (eye) BID Tobacco use date assessed: 03/24/25 Fall risk assessment: No Falls in past year Last assessed Fall Risk: 03/24/25 Dental Screening Dental Screen Date: 03/24/25 Did you have a dental visit in the last 12 months?: Yes Did you have a dental problem in the last 6 months where you did not have access to dental care?: No Was dental information given to patient?: Patient has dentist HPI 4m follow up HPI Details Chief Complaint The patient presents for a follow-up for diabetes management. History of Present Illness The patient is a 80-year-old male presenting with a follow-up for diabetes management. He denies experiencing neuropathy, polyuria, or polydipsia, and currently denies any chest pain or dyspnea. His diabetes management appears effective, as indicated by an A1c level of 5.7%. He is encouraged to continue monitoring his condition and to undergo further laboratory evaluations in the near future. The patient reports that his eye examination is up to date, which is an important aspect of his diabetes management. He is fully retired and no longer working. Social History - Employment: Fully retired, no longer working Health Maintenance - Eye examination: Up to date as part of diabetes management Review of Systems - Neurological: Denies neuropathy - Genitourinary: Denies polyuria - Endocrine: Denies polydipsia - Cardiovascular: Denies chest pain - Respiratory: Denies dyspnea Physical Exam General: Cooperative, healthy appearing, comfortable, no acute distress and well developed Orientation: Patient oriented x3 Limitations: No limitations Head: Normal to inspection Ears: Hearing grossly normal bilaterally Nose: Normal external nose present Face and sinus: Normal facial exam Eyes: Appearance normal, both eyes and all related structures Neck: Normal visual inspection and Yes full ROM Respiratory: Normal respiratory effort and able to speak in complete sentences. Clear to auscultation bilaterally Cardiovascular: Regular rate and rhythm. Normal S1 and S2, systolic murmur noted GI: Normal to inspection. Soft to palpation and nontender Neuro: Patient oriented x3 Extremities: Normal to inspection, feet positive sensation with use of monofilament Results - Labs: Hemoglobin A1c level at 5.7% Plan The patient's diabetes management is currently effective, as evidenced by an A1c level of 5.7%. He is advised to continue with his current management plan and to have further laboratory evaluations to monitor his condition. The patient is encouraged to maintain regular eye examinations as part of his diabetes care. Discussion Notes I discussed with the patient the importance of maintaining his current diabetes management plan, given his impressive A1c level of 5.7%. We talked about the necessity of regular laboratory evaluations to ensure ongoing control of his condition. Additionally, I emphasized the need for regular eye examinations as part of his comprehensive diabetes care. Patient Instructions - Continue current diabetes management plan. - Schedule and complete further laboratory evaluations. - Maintain regular eye examinations. [facility] Medical History CKD (chronic kidney disease) stage 3, GFR 30-59 ml/min Tinea unguium Internal hemorrhoids Diverticulitis Glaucoma Arthritis Enlarged prostate HTN (hypertension) Stewart disease Actinic keratosis Tubular adenoma Dyslipidemia Diabetes Surgical History History of removal of neck cyst History of colonoscopy History of cystoscopy History of umbilical hernia repair History of cataract surgery Family History Father Lung cancer Smoker Mother History of CVA (cerebrovascular accident) Dementia Stroke Son No problems noted. Daughter No problems noted. 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 Cognitive needs: No Hearing needs: No Vision needs: Yes Questionnaire Thrive Questionnaire Date Thrive assessed: 11/24/24 I am a: Patient What is your living situation today?: I have a steady place to live Within the past 12 months, did the food you bought not last and you didn't have the money to get more?: Never true Within the past 12 months, did you worry whether your food would run out before you got money to buy more?: Never true Do you have trouble paying for medicines?: No Do you have trouble getting transportation to medical appointments?: No Do you have trouble paying your heating and electricity bill?: No Do you have trouble taking care of your child, family member or friend?: No Do you have trouble with day-to-day activities such as bathing, preparing meals, shopping, managing finances, etc.?: No Are you currently unemployed and looking for a job?: No Are you interested in more education?: No THRIVE Score: 0 EMILY-7 AMB Questionnaire EMILY-7 Date EMILY - 7 assessed: 11/24/24 Source: Developed by Drs. Romulo Engle, Michelle Funk, Ramesh White and colleagues, with an educational keyonna from [employer]. Physical exam (Primary Care) Vital Signs: Last Vital Signs Temp 97.8 F 03/24/25 08:04 Pulse 84 03/24/25 08:04 Resp 16 03/24/25 08:04 BP 136/60 03/24/25 08:04 Pulse Ox 98 03/24/25 08:04 Oxygen Delivery Method Room Air 03/24/25 08:04 BMI result Body Mass Index 27.3 Tobacco/Smoking Status: Tobacco use Status Tobacco use date assessed 03/24/25 03/24/25 08:00 Patient Tobacco Use Status Former Tobacco user 03/24/25 08:00 e-Cigarette/Vaping Use Never Used 03/24/25 08:00 Thrive Assessment: Date of Thrive Assessment Date Thrive assessed 11/24/24 03/24/25 08:00 Results AMB Hemoglobin A1c AMB Hemoglobin A1c 5.7 % Last Edit by Maliha Wilson CMA on 03/24/25 08:15 Results Reviewed Results Reviewed: Laboratory Last Values Hgb A1c (Clinic) 5.7 % (4.0-6.0) 03/24/25 08:10 Coding Level of Care Code Est Pt Level 3 (57347) Diagnoses Type 2 diabetes mellitus without complication, without long-term current use of insulin E11.9 Diabetes mellitus complication status: without complication Diabetes mellitus intermodal owner operator truck driver insulin use: without intermodal owner operator truck driver use Diabetes mellitus type: type 2 Low vitamin B12 level R79.89 Assessment & Plan Assessment & Plan (1) Diabetes: Code(s): E11.9 - Type 2 diabetes mellitus without complications Category: Medical Qualifiers: Diabetes mellitus complication status: without complication Diabetes mellitus detention insulin use: without intermodal owner operator truck driver use Diabetes mellitus type: type 2 Qualified Code(s): E11.9 - Type 2 diabetes mellitus without complications (2) Low vitamin B12 level: Code(s): R79.89 - Other specified abnormal findings of blood chemistry Category: Medical Plan . Orders: Orders TSH reflex Free T4 Today E11.9 - Type 2 diabetes mellitus without complications Lipid Panel Today E11.9 - Type 2 diabetes mellitus without complications Vitamin B12 and Folate Today R79.89 - Other specified abnormal findings of blood chemistry AMB Hemoglobin A1c Today E11.9 - Type 2 diabetes mellitus without complications Complete Blood Count Auto Diff Today E11.9 - Type 2 diabetes mellitus without complications Comprehensive [place]. Panel Fast Today E11.9 - Type 2 diabetes mellitus without complications UA CC w/rflx Micro + Cult Today E11.9 - Type 2 diabetes mellitus without complications
[2025-03-24 08:04] VITALS: BP 136/60; PULSE 84; RESP 16; TEMP 36.6; O2SAT 98; BMI 27.3
== END 2025-03-24 08:33 | disposition home or self-care (01) ==
LOC: HO.HMCC 07:57
PROVIDERS: PCP Nurse Practitioner Family; Visit Provider Nurse Practitioner Family
DX: E11.9 Type 2 diabetes mellitus without complications (principal); R79.89 Other specified abnormal findings of blood chemistry

== ENCOUNTER → 2025-03-24 07:57 | Outpatient (BNVA) | payer MEDICARE, SELFPAY | PROVIDERS: PCP Nurse Practitioner Family; Visit Provider Nurse Practitioner Family | DX: E11.9 Type 2 diabetes mellitus without complications (principal); R79.89 Other specified abnormal findings of blood chemistry | CPT/HCPCS: 83036; 99212 ==

== ENCOUNTER 2025-04-08 07:53 | Outpatient (REF) | payer MEDICARE, SELFPAY ==
--- OUTSIDE RECORDS SUMMARY | 2025-02-05 11:15 | XMS_ITS ---
[facility] Organization [facility] Address [address] [place] [address] Care Team Providers Care Economics Analyst Name Role Phone Clarence Costa Primary Care Provider Unav ailable Rebecapastor Judit Unavailable [phone] Allergies Allergen (clinical drug ingredient) Drug/Non Drug Allergy documented on EMR Reaction Allergy Type Onset Date Status Iodine hives Drug Allergy Active Medications Medication SIG (Take, Route, Frequency, Duration) Notes Start Date End Date Status Cyanocobalamin 1000 MCG 1 tablet Orally Once a day; Duration: 30 day(s) Not-Taking Finasteride 5 MG 1 tablet Orally Once a day; Duration: 30 day(s) Not-Taking Aspirin 81 MG 1 tablet Orally Once a day; Duration: 30 day(s) Not-Taking Extra Depth Orthopedic Shoes (1 Pair) with Customized Heat Molded Multidensity Innersoles (3 Pair) as directed Dx: NIDDM/Polyneuropathy (E11.42), Hammertoe Foot Deformity (M20.41,M20.42), Preulcerative Skin Lesion(s) (L85.1 Not-Taking Extra Depth Orthopedic Shoes (1 Pair) with Customized Heat Molded Multidensity Innersoles (3 Pair) as directed Dx: NIDDM/Polyneuropathy (E11.42), Hammertoe Foot Deformity (M20.41,M20.42), Preulcerative Skin Lesion(s) (L85.1 06/10/2019 Not-Taking Extra Depth Orthopedic Shoes (1 Pair) with Customized Heat Molded Multidensity Innersoles (3 Pair) as directed Dx: NIDDM/Polyneuropathy (E11.42), Hammertoe Foot Deformity (M20.41,M20.42), Preulcerative Skin Lesion(s) (L85.1 05/09/2024 Active Extra Depth Orthopedic Shoes (1 Pair) with Customized Heat Molded Multidensity Innersoles (3 Pair) as directed Dx: NIDDM/Polyneuropathy (E11.42), Hammertoe Foot Deformity (M20.41,M20.42), Preulcerative Skin Lesion(s) (L85.1 Active Cephalexin 500 MG 1 capsule Orally laura ry 12 hrs; Duration: 5 day(s) Not-Taking Vitamin B12 Not-Taki ng Extra Depth Orthopedic Shoes (1 Pair) with Customized Heat Molded Multidensity Innersoles (3 Pair) as directed Dx: NIDDM/Polyneuropathy (E11.42), Hammertoe Foot Deformity (M20.41,M20.42), Preulcerative Skin Lesion(s) (L85.1 11/07/2024 Active Extra Depth Orthopedic Shoes (1 Pair) with Customized Heat Molded Multidensity Innersoles (3 Pair) as directed Dx: NIDDM/Polyneuropathy (E11.42), Hammertoe Foot Deformity (M20.41,M20.42), Preulcerative Skin Lesion(s) (L85.1 06/27/2022 Active Timolol Maleate 0.5 % 1 drop into affect ed eye Ophthalmic Once a day Active Simvastatin 40 MG 1 tablet in the even ing Orally Once a day; Duration: 30 day(s) Active Lisinopril 2.5 MG 1 tablet Orally Once a day; Duration: 30 day(s) Active Latanoprost 0.005 % 1 drop into affected eye in the evening Ophthalmic Once a day Active metFORMIN HCl 500 MG 1 tablet with a elsie l Orally twice a day Active Brimonidine Tartrate 0.15 % 1 drop into affected eye Ophthalmic every 8 hrs Active Baby Aspirin 81 Acti ve Encounters Encounter Location Date Provider [facility] [address] 02/05/2025 Judit Brown Plan Of Treatment No Information Progress Notes * Jacob SNOWDOB:1945 ( 80 yo M)Acc No.[id number]:02/05/2025 Progress Note Patient: Jacob MCKEON Provider: Moustapha Brown DPM :1945 A ge:79 Y S ex:Male Date:02/05/2025 Address:[address] [place], [place] [id number] Pcp:WM Kimbrough Subjective: * Chief Complaints: * * Medical History: T ype 2 diabetes, Arthritis, Hypertension, Dyslipidemia, Glaucoma, Polyarthralgia, Hemorrhoids, Diverticulosis, Tubular adenoma, Enlarged prostate, Actinic keratosis, [place] syndrome, Cholelithiasis, Nephrolithiasis, Liver lesion, right lobe, Reflux ( GERD), Arthropathy. * Medications: T aking Baby Aspirin 81 mg , Taking Brimonidine Tartrate 0.15 % Solution 1 drop into affected eye Ophthalmic every 8 hrs , Taking metFORMIN HCl 500 MG Tablet 1 tablet with a meal Orally twice a day , Taking Latanoprost 0.005 % Solution 1 drop into affected eye in the evening Ophthalmic Once a day , Taking Lisinopril 2.5 MG Tablet 1 tablet Orally Once a day , Taking Simvastatin 40 MG Tablet 1 tablet in the evening Orally Once a day , Taking Timolol Maleate 0.5 % Solution 1 drop into affected eye Ophthalmic Once a day , Taking Extra Depth Orthopedic Shoes (1 Pair) with Customized Heat Molded Multidensity Innersoles (3 Pair) as directed Dx: NIDDM/Polyneuropathy (E11.42), Hammertoe Foot Deformity (M20.41,M20.42), Preulcerative Skin Lesion(s) (L85.1 , Taking Extra Depth Orthopedic Shoes (1 Pair) with Customized Heat Molded Multidensity Innersoles (3 Pair) as directed Dx: NIDDM/Polyneuropathy (E11.42), Hammertoe Foot Deformity (M20.41,M20.42), Preulcerative Skin Lesion(s) (L85.1 , Taking Extra Depth Orthopedic Shoes (1 Pair) with Customized Heat Molded Multidensity Innersoles (3 Pair) as directed Dx: NIDDM/Polyneuropathy (E11.42), Hammertoe Foot Deformity (M20.41,M20.42), Preulcerative Skin Lesion(s) (L85.1 , Taking Extra Depth Orthopedic Shoes (1 Pair) with Customized Heat Molded Multidensity Innersoles (3 Pair) as directed Dx: NIDDM/Polyneuropathy (E11.42), Hammertoe Foot Deformity (M20.41,M20.42), Preulcerative Skin Lesion(s) (L85.1 , Not-Taking/PRN Vitamin B12 , Not-Taking/PRN Cephalexin 500 MG Capsule 1 capsule Orally every 12 hrs , Not-Taking/PRN Extra Depth Orthopedic Shoes (1 Pair) with Customized Heat Molded Multidensity Innersoles (3 Pair) as directed Dx: NIDDM/Polyneuropathy (E11.42), Hammertoe Foot Deformity (M20.41,M20.42), Preulcerative Skin Lesion(s) (L85.1 , Not-Taking/PRN Extra Depth Orthopedic Shoes (1 Pair) with Customized Heat Molded Multidensity Innersoles (3 Pair) as directed Dx: NIDDM/Polyneuropathy (E11.42), Hammertoe Foot Deformity (M20.41,M20.42), Preulcerative Skin Lesion(s) (L85.1 , Not-Taking/PRN Aspirin 81 MG Tablet Delayed Release 1 tablet Orally Once a day , Not-Taking/PRN Finasteride 5 MG Tablet 1 tablet Orally Once a day , Not- Taking/PRN Cyanocobalamin 1000 MCG Tablet 1 tablet Orally Once a day * Allergies: I odine: hives. Objective: * Vitals: Assessment: Plan: * Treatment: * Images: * The named appointment provid er may or may not be the originator of this progress note, and it is not deemed complete until electronically signed by the appointment provider. Sign off status: Pending * Provider: Moustapha Brown DPM Date: 0 02/05/2025 Generated for Kiko suárez/Stefany/Deena on: 0 04/08/2025 07:56 AM EDT
--- OUTSIDE RECORDS SUMMARY | 2025-04-08 07:57 | XMS_ITS | Clinical Summary ---
Author Organization [facility], Address [address] [place] [address] Phone Care Team Providers Care Systems Manager Name Role Phone Clarence Dos Santos NP Primary Care Provider [phone] Allergies Active Allergy Reactions Criticality Noted Date [...] 50+ Ye ars (2 of 2 - PCV20 or PCV21) 09/04/2020 09/04/2019 Influenza Vaccine (#1) 2025 Pneumococcal Vaccine: Peds ( 0 to 5 Years) and At-Risk Patients (6 to 49 Years) Discontinued 09/04/2019 Hepatitis B Vaccine Aged Out No longe r eligible based on patient's age to complete this topic Insurance [employer] Care Teams Systems Manager Relationship Specialty Start Date End Date Clarence Dos Santos NP [address] [place] [id number] PCP - General Nurse Practitioner 10/17/19
--- OUTSIDE RECORDS SUMMARY | 2025-04-08 07:57 | XMS_ITS | Patient Health Record ---
Author Organization [facility] Address [address] [place] [address] Care Team Providers Care Booster Operator Name Role Phone NIVIA MORRIS Primary Care Provider Romulo Lawrence [phone] Allergies Allergen (clinical drug ingredient) Drug/Non Drug [...] Problem Status W/U Status Risk Notes Problem 322982325 Colon cancer screening (Z12.11) Active confirmed Problem 680962226 Encounter for screening for malignant neoplasm of colon (Z12.11) Active confirmed Problem 241447562 History of adenomatous polyp of colon (Z86.010) Active confirmed Problem Diverticular disease of colon (257508379) Diverticulosis of large intestine without perforation or abscess without bleeding (K57.30) Active confirmed Problem 140484320098746 Preprocedural examination (Z01.818) Active confirmed Problem 607222350 Long-term use of aspirin therapy (Z79.82) Active confirmed Problem 99405953 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 [place] [phone] [id number] JAMI DODSON Self - patient is the insured Medical (General) History Medical History History ICD Code Hyperlipidemia Fatty liver---elevated Indir ect bilirubin since at least 1995--Gilbert's disease---other liver w/u was negative in 1995 Tubular adenomas of the colon removed in 2004 and 11/2011 Glaucoma Arthritis Denies NM,CVA,Lung disease,renal disease NIDDM Told of sleep apnea approx 1 0 years ago, but hasn't used the CPAP or nasal apparatus for > 2 years Hypertension Negative colonoscopy in 05/2017 Glaucoma Surgical History Surgery Date(Month/Year) Umbilical hernia surgery Left eye surgery and having future right eye surgery for glaucoma
[2025-04-08 10:31] LABS: MANUAL DIFF FLAG NO
[2025-04-08 10:39] LABS: Hematocrit 41.6 % (42.0-52.0); Hemoglobin 14.1 g/dl (14.0-18.0); Imm Gran Abs Auto 0.04 X10*3/uL (0.00-0.03); Imm Gran Pct Auto 0.6 % (0.0-0.4); Lymphocytes Absolute Auto 1.8 X10*3/uL (1.2-4.9); Mean Corpuscular HGB Conc 33.9 g/dl (31.0-36.0); Mean Corpuscular Hemoglobin 31.7 pg (27.0-33.0); Mean Corpuscular Volume 93.5 fL (80.0-98.0); NRBC Abs Auto 0.000 X10*3/uL (0.0-0.012); NRBC Pct Auto 0.0 /100WBC (0.0-0.2); Platelet Count 214 X10*3/uL (160-400); Red Blood Count 4.45 X10*6/uL (4.60-5.80); White Blood Count 6.9 X10*3/uL (4.8-10.8)
[2025-04-08 10:58] LABS: Appearance Urine Clear; Glucose Urine UA Negative (Negative); PH 6.5 (5.0-9.0); Specific Gravity - Urine 1.015 (1.005-1.025)
[2025-04-08 11:18] LABS: Alanine Aminotransferase 21 U/L (0-40); Albumin Level 4.4 g/dL (3.5-5.0); Alkaline Phosphatase 78 U/L (39-117); Anion Gap 11 (12-20); Aspartate Amino Transferase 25 U/L (5-37); Blood Urea Nitrogen 28 mg/dL (9-16); Calcium 9.2 mg/dL (8.4-10.2); Carbon Dioxide 27 mmol/L (22-29); Chloride 106 mmol/L (96-108); Cholesterol 156 mg/dL (<200); Estimated Glomerular Filt Rate 55; HDL Cholesterol 54 mg/dL (>40); Potassium 4.8 mmol/L (3.3-5.1); Sodium 139 mmol/L (135-145); Total Protein 7.9 g/dL (6.5-8.0); Triglycerides 141 mg/dL (<150)
[2025-04-08 11:33] LABS: Folate 8.0 ng/mL (> or = 4.0); Vitamin B12 248 pg/mL (200-900)
== END 2025-04-08 07:54 | disposition home or self-care (01) ==
LOC: HO.HMGCLDS 07:53
PROVIDERS: PCP Nurse Practitioner Family; Visit Provider Nurse Practitioner Family
DX: E11.9 Type 2 diabetes mellitus without complications (principal); R79.89 Other specified abnormal findings of blood chemistry
CPT/HCPCS: 36415; 80053; 80061; 81003; 82607; 82746; 84443; 85025

== ENCOUNTER 2025-06-16 08:10 | Outpatient (REF) | payer SELFPAY ==
--- OUTSIDE RECORDS SUMMARY | 2025-02-04 05:00 | XMS_ITS ---
Author Organization [facility] Address [address] [place] [address] Care Team Providers Care Solar Sales Assessor Name Role Phone Raya BURK, Clarence Primary Care Provider Unav ailable Judit Brown [phone] Encounters Encounter Location Date Provider Diagnosis [address] [address] 02/04/2025 Judit Brown Plan Of Treatment No Information Progress Notes * Jacob SNOWDOB:1945 ( 80 yo M)Acc No.[id number]:02/04/2025 Progress Note Patient: Jacob MCKEON Provider: Moustapha Brown DPM :1945 A ge:79 Y S ex:Male Date:02/04/2025 Address:[address] [place] [address] [place], [id number] Pcp:WM Kimbrough Subjective: * Chief Complaints: * * Medical History: Objective: * Vitals: Assessment: Plan: * Treatment: * Images: * The named appointment provid er may or may not be the originator of this progress note, and it is not deemed complete until electronically signed by the appointment provider. Sign off status: Pending * Provider: Moustapha Brown DPM Date: 0 02/04/2025 Generated for Kiko suárez/Stefany/Paoransmitting on: 0 06/16/2025 09:21 AM EDT
--- OUTSIDE RECORDS SUMMARY | 2025-02-05 11:15 | XMS_ITS ---
Author Organization [facility] Address [address] [place] [address] Care Team Providers Care Quantitative Analyst Developer Name Role Phone Clarence Costa Primary Care Provider Unav ailable Rebecapastor Judit Unavailable [phone] Allergies Allergen (clinical drug ingredient) Drug/Non Drug [...] Acti ve Encounters Encounter Location Date Provider [facility] [address] 02/05/2025 Judit Brown Plan Of Treatment No Information Progress Notes * Jacob SNOWDOB:1945 ( 80 yo M)Acc No.[id number]:02/05/2025 Progress Note Patient: Jacob MCKEON Provider: Moustapha Brown DPM :1945 A ge:79 Y S ex:Male Date:02/05/2025 Address:[address] [place], [place] [id number] Pcp:WM Kimbrough Subjective: * Chief Complaints: * * Medical History: T ype 2 diabetes, Arthritis, Hypertension, Dyslipidemia, Glaucoma, Polyarthralgia, Hemorrhoids, Diverticulosis, Tubular adenoma, Enlarged prostate, Actinic keratosis, [place] syndrome, Cholelithiasis, Nephrolithiasis, Liver lesion, right lobe, [...] DPM Date: 0 02/05/2025 Generated for Kiko suárez/Stefany/eDena on: 0 06/16/2025 09:20 AM EDT
--- OUTSIDE RECORDS SUMMARY | 2025-06-16 09:21 | XMS_ITS | Patient Health Record ---
Author Organization [facility] Address [address] [place] [address] Care Team Providers Care Carpentry Specialist Name Role Phone Clarence Costa Primary Care Provider Unav ailable Judit Brown Unavailable [phone] Allergies Allergen (clinical drug ingredient) Drug/Non Drug Allergy documented on EMR Reaction Allergy Type Onset Date Status Iodine hives Drug Allergy Active Results Component Value Reference Range Notes HEMOGLOBIN A1C (GLYCOHEMOGLO BIN) Reviewed date:11/07/2024 09:01:05 AM Interpretation: Performing Lab: Notes/Report: HEMOGLOBIN A1C % (HH) 5.6 Reason For Referral No Information Medications Medication [...] ed eye Ophthalmic Once a day Active Cyanocobalamin 1000 MCG 1 tablet Orally Once a day; Duration: 30 day(s) Not-Taking Simvastatin 40 MG 1 tablet in the even ing Orally Once a day; Duration: 30 day(s) Active Finasteride 5 MG 1 tablet Orally Once a day; Duration: 30 day(s) Not-Taking Lisinopril 2.5 MG 1 tablet Orally Once a day; Duration: 30 day(s) Active Aspirin 81 MG 1 tablet Orally Once a day; Duration: 30 day(s) Not-Taking Latanoprost 0.005 % 1 drop into affected eye in the evening Ophthalmic Once a day Active Extra Depth Orthopedic Shoes (1 Pair) with Customized Heat Molded Multidensity Innersoles (3 Pair) as directed Dx: NIDDM/Polyneuropathy (E11.42), Hammertoe Foot Deformity (M20.41,M20.42), Preulcerative Skin Lesion(s) (L85.1 Not-Taking Extra Depth Orthopedic Shoes (1 Pair) with Customized Heat Molded Multidensity Innersoles (3 Pair) as directed Dx: NIDDM/Polyneuropathy (E11.42), Hammertoe Foot Deformity (M20.41,M20.42), Preulcerative Skin Lesion(s) (L85.1 06/10/2019 Not-Taking metFORMIN HCl 500 MG 1 tablet with a elsie l Orally twice a day Active Brimonidine Tartrate 0.15 % 1 drop into affected eye Ophthalmic every 8 hrs Active Cephalexin 500 MG 1 capsule Orally laura ry 12 hrs; Duration: 5 day(s) Not-Taking Baby Aspirin 81 Acti ve Vitamin B12 Not-Taki ng Extra Depth Orthopedic Shoes (1 Pair) with Customized Heat Molded Multidensity Innersoles (3 Pair) as directed Dx: NIDDM/Polyneuropathy (E11.42), Hammertoe Foot Deformity (M20.41,M20.42), Preulcerative Skin Lesion(s) (L85.1 11/07/2024 Active Immunizations Vaccine Route Administration Date Status Comme nts Influenza Unknown 08/04/2019 Administered Influenza Unknown 07/16/2021 Administered Influenza Unknown 07/02/2023 Administered COVID-19 Pfizer BioNTech Vaccine Unknown 07/16/2021 Administered 1st 12/13/2020 2nd 12/30/2020 Social History Tobacco Use: Social History Observation [...] Problem Acquired hammer toe of right foot (1480812578066915 ) Other hammer toe(s) (acquired), right foot (M20.41) Active confirmed Problem Acquired hammer toe of left foot (7039626698250881 ) Other hammer toe(s) (acquired), left foot (M20.42) Active confirmed Problem Polyneuropathy due to type 2 diabetes mellitus (037099112) Type 2 diabetes mellitus with diabetic polyneuropathy (E11.42) Active confirmed Problem Localized, primary osteoarthritis of the ankle and/or foot (689593034) Osteoarthritis of left ankle and foot (M19.072) Active confirmed Vital Signs Blood pressure diastolic 70 mm Hg 11/07/2024 Height 5ft 5in in 11/07/2024 Blood pressure systolic 120 mm Hg 11/07/2024 Weight 165 lbs 11/07/2024 BMI 27.45 kg/m2 11/07/2024 Encounters Encounter Location Date Provider [facility] [address] 08/08/2024 Judit Brown Ingrown nail L60.0 ; Type 2 diabetes mellitus with diabetic polyneuropathy E11.42 and Tinea unguium B35.[address] [facility] [address] 11/07/2024 Judit Brown Type 2 diabetes mellitus with diabetic polyneuropathy E11.42 ; Tinea unguium B35.1 ; Other hammer toe(s) (acquired), left foot M20.42 and Other hammer toe(s) (acquired), right foot M20.41 [facility] [address] [address] 02/03/2025 Judit Brown [facility] [address] [address] 02/05/2025 Judit Brown Assessments Encounter Date Diagnosis (ICD Code) Assessment Notes Treatment Notes Treatment Clinical Notes Section Notes 08/08/2024 Type 2 diabetes mellitus with diabetic polyneuropathy (ICD-10 - E11.42) 08/08/2024 Ingrown nail (ICD-10 - L60.0) 11/07/2024 Type 2 diabetes mellitus with diabetic polyneuropathy (ICD-10 - E11.42) 11/07/2024 Tinea unguium (ICD-10 - B35.1) 08/08/2024 Tinea unguium (ICD-10 - B35.1) 11/07/2024 Other hammer toe(s) (acquired), left foot (ICD-10 - M20.42) 11/07/2024 Other hammer toe(s) (acquired), right foot (ICD-10 - M20.41) Patient Educated with: DIABETIC FOOT CARE INSTRUCTIONS. pdf (DIABETIC FOOT CARE INSTRUCTIONS. pdf) Plan Of Treatment No Information Insurance Providers Payer Name Payer Address Payer Phone Subscriber Number Group Number Insured Name Patient Relationship to Insured Coverage Start Date Coverage End Date [facility] [address] [place] [phone] [id number] Jacob Snow Self - patient is the [...]
--- OUTSIDE RECORDS SUMMARY | 2025-06-16 09:21 | XMS_ITS | Clinical Summary ---
Author Organization [facility], Address [address] [place] [address] Phone Care Team Providers Care Supervisor Drying Name Role Phone Clarence Dos Santos NP Primary Care Provider [phone] Allergies Active Allergy Reactions Criticality Noted Date [...] patient's age to complete this topic Insurance [employer] Care Teams Supervisor Drying Relationship Specialty Start Date End Date Clarence Dos Santos NP [address] [place] [id number] PCP - General Nurse Practitioner 10/17/19
--- OUTSIDE RECORDS SUMMARY | 2025-06-16 09:21 | XMS_ITS | Patient Health Record ---
Author Organization [facility] Address [address] [place] [address] Care Team Providers Care Him Director Name Role Phone NIVIA MORRIS Primary Care Provider Romulo Lawrence [phone] Allergies Allergen (clinical drug ingredient) Drug/Non Drug [...] Problem Status W/U Status Risk Notes Problem [id number] Colon cancer screening (Z12.11) Active confirmed Problem 068048730 Encounter for screening for malignant neoplasm of colon (Z12.11) Active confirmed Problem 844091002 History of adenomatous polyp of colon (Z86.010) Active confirmed Problem Diverticular disease of colon (530912016) Diverticulosis of large intestine without perforation or abscess without bleeding (K57.30) Active confirmed Problem [id number] Preprocedural examination (Z01.818) Active confirmed Problem 971849547 Long-term use of aspirin therapy (Z79.82) Active confirmed Problem 74532423 [place] disease (E80.4) Active confirmed Plan Of Treatment Future Test Test Name Order Date COLONOSCOPY 09/12/2011 COLONOSCOPY 02/07/2017 COLONOSCOPY 11/03/2022 Insurance Providers Payer Name Payer Address Payer Phone Subscriber Number Group Number Insured Name Patient Relationship to Insured Coverage Start Date Coverage End Date [employer] [facility] [address] [place] [phone] [id number] JAMI DODSON Self - patient is the insured Medical (General) History Medical History History ICD Code Hyperlipidemia Fatty liver---elevated Indir ect bilirubin since at least 1995--Gilbert's disease---other liver w/u was negative in 1995 Tubular adenomas of the colon removed in 2004 and 11/2011 Glaucoma Arthritis Denies PR,CVA,Lung disease,renal disease NIDDM Told of sleep apnea approx 1 0 years ago, but hasn't used the CPAP or nasal apparatus for > 2 years Hypertension Negative colonoscopy in 05/2017 Glaucoma Surgical History Surgery Date(Month/Year) Umbilical hernia surgery Left eye surgery and having future right eye surgery for glaucoma
== END 2025-06-16 08:11 | disposition home or self-care (01) ==
LOC: HO.HAP 08:10
PROVIDERS: Visit Provider Nurse Practitioner Family
DX: Z46.1 Encounter for fitting and adjustment of hearing aid (principal)
CPT/HCPCS: 92593

== ENCOUNTER 2025-09-11 07:51 | Outpatient (REF) | payer MEDICARE, SELFPAY ==
[2025-09-11 10:11] LABS: MANUAL DIFF FLAG NO
[2025-09-11 10:17] LABS: Hematocrit 43.4 % (42.0-52.0); Hemoglobin 14.8 g/dl (14.0-18.0); Imm Gran Abs Auto 0.08 X10*3/uL (0.00-0.03); Imm Gran Pct Auto 0.9 % (0.0-0.4); Lymphocytes Absolute Auto 1.9 X10*3/uL (1.2-4.9); Mean Corpuscular HGB Conc 34.1 g/dl (31.0-36.0); Mean Corpuscular Hemoglobin 32.2 pg (27.0-33.0); Mean Corpuscular Volume 94.3 fL (80.0-98.0); NRBC Abs Auto 0.000 X10*3/uL (0.0-0.012); NRBC Pct Auto 0.0 /100WBC (0.0-0.2); Platelet Count 255 X10*3/uL (160-400); Red Blood Count 4.60 X10*6/uL (4.60-5.80); White Blood Count 9.1 X10*3/uL (4.8-10.8)
[2025-09-11 10:48] LABS: Alanine Aminotransferase 13 U/L (0-40); Albumin Level 4.5 g/dL (3.5-5.0); Alkaline Phosphatase 99 U/L (39-117); Anion Gap 12 (12-20); Aspartate Amino Transferase 26 U/L (5-37); Blood Urea Nitrogen 17 mg/dL (9-16); Calcium 10.1 mg/dL (8.4-10.2); Carbon Dioxide 27 mmol/L (22-29); Chloride 105 mmol/L (96-108); Cholesterol 148 mg/dL (<200); Estimated Glomerular Filt Rate > 60; HDL Cholesterol 61 mg/dL (>40); Potassium 4.6 mmol/L (3.3-5.1); Sodium 139 mmol/L (135-145); Total Protein 8.1 g/dL (6.5-8.0); Triglycerides 110 mg/dL (<150)
[2025-09-11 10:54] LABS: Appearance Urine Clear; Glucose Urine UA Negative (Negative); PH 6.0 (5.0-9.0); Specific Gravity - Urine 1.020 (1.005-1.025); UMIC TRIGGER UACC YES
[2025-09-11 10:56] LABS: Microalbum/Creatinine Ratio Ur 58.2 ug/mg cr (<30)
[2025-09-11 11:27] LABS: Folate 6.4 ng/mL (> or = 4.0)
[2025-09-11 11:43] LABS: Vitamin B12 249 pg/mL (200-900)
== END 2025-09-11 07:52 | disposition home or self-care (01) ==
LOC: HO.HMGCLDS 07:51
PROVIDERS: PCP Nurse Practitioner Family; Visit Provider Nurse Practitioner Family
DX: Z12.5 Encounter for screening for malignant neoplasm of prostate (principal); E11.9 Type 2 diabetes mellitus without complications; E55.9 Vitamin D deficiency, unspecified; I10 Essential (primary) hypertension; R79.89 Other specified abnormal findings of blood chemistry
CPT/HCPCS: 36415; 80053; 80061; 81001; 82043; 82306; 82570; 82607; 82746; 83036; 84153; 84443; 85025